=== PATIENT | female | born 1945 | race Caucasian/White ===

== ENCOUNTER → 2016-12-30 | Outpatient (CLI) | payer MEDICARE ==
[2016-12-30 14:12] LABS: Basophils # (A) 0.1 k/uL (0-0.2); Basophils % (A) 1 %; CH 31.5; CHCM 33.6; Eosinophils % (A) 1 %; HCT 43.6 % (34.0-46.0); HDW 2.66; HGB 14.3 gm/dL (11.4-16.0); Luc # (Auto) 0.15; Luc % (Auto) 3; Lymphocytes # (A) 1.1 k/uL (1.0-4.8); Lymphocytes % (A) 18 %; MCH 30.8 pg (25.0-35.0); MCHC 32.8 g/dL (31.0-37.0); MCV 94.1 fL (80.0-100.0); Mean Platelet Volume 7.6; Monocytes # (A) 0.3 k/uL (0-1.0); Monocytes % (A) 5 %; Neutrophils # (A) 4.2 k/uL (1.3-7.7); Neutrophils % (A) 73 %; RBC 4.63 m/uL (3.80-5.40); RDW 13.9 % (11.5-15.5); WBC 5.7 k/uL (3.8-10.6); WBC (Perox) 5.68
[2016-12-30 14:22] LABS: INR 1.1 (<1.1); Partial Thromboplastin Time 22.8 sec (22.0-30.0); Prothrombin Time 10.7 sec (9.0-12.0)
[2016-12-30 14:26] LABS: ALT 31 U/L (9-52); AST 19 U/L (14-36); Alkaline Phosphatase 73 U/L (38-126); Anion Gap 12 mmol/L; Blood Urea Nitrogen 18 mg/dL (7-17); Calcium 10.5 mg/dL (8.4-10.2); Carbon Dioxide 29 mmol/L (22-30); Chloride 100 mmol/L (98-107); Glucose 104 mg/dL (74-99); Non-African American GFR(MDRD) >60 (>60 ml/min/1.73 sqM); Potassium 3.5 mmol/L (3.5-5.1); Sodium 141 mmol/L (137-145); Total Bilirubin 0.5 mg/dL (0.2-1.3); Total Protein 7.4 g/dL (6.3-8.2)
== END ==
LOC: LABWHC1 13:14
PROVIDERS: ATTEND Orthopaedic Surgery
DX: Z01.810 Encounter for preprocedural cardiovascular examination (principal); Z01.812 Encounter for preprocedural laboratory examination
CPT/HCPCS: 36415; 80053; 85025; 85610; 85730; 87070

== ENCOUNTER → 2017-01-03 | Outpatient (CLI) | payer MEDICARE ==
[2017-01-03 14:06] LABS: Appearance,Urine Clear (Clear); Bacteria,Urine Rare /hpf; Bilirubin,Urine Negative (Negative); Glucose,Urine (UA) Negative (Negative); Ketones,Urine Negative (Negative); Leukocyte Esterase,Urine Large (Negative); Mucus,Urine Rare /hpf; Nitrite,Urine Negative (Negative); PH, Urine 5.5 (5.0-8.0); Particle Count 3818; Protein,Urine Negative (Negative); RBC,Urine 2 /hpf (0-5); Specific Gravity,Urine 1.015 (1.001-1.035); Squamous Epithelial Cell,Urine 1 /hpf (0-4); UA Billing (MACRO vs. MICRO) MICRO; Urobilinogen,Urine <2.0 mg/dL (<2.0); WBC,Urine 9 /hpf (0-5)
== END | disposition home or self-care (01) ==
LOC: LABWHC1 13:15
PROVIDERS: ATTEND Orthopaedic Surgery
DX: Z01.812 Encounter for preprocedural laboratory examination (principal)
CPT/HCPCS: 81001; 86850; 86900; 86901

== ENCOUNTER 2017-01-10 11:24 | Inpatient (IN) | payer MEDICARE ==
[2017-01-03 12:03] VITALS: BMI 31.3
[~2017-01-10 11:24] MED LIST: ACETAMINOPHEN TAB 500 MG TAB PO ONE; DEXAMETHASONE SOD PHOSPHATE 10 MG/ML 1 ML VIAL IV ONE; HYDROmorphone 1 MG/ML 1 ML SYRINGE IVP PRN; LACTATED RINGERS 1,000 ML IV SCH; MELOXICAM 7.5 MG TAB PO ONE; MIDAZOLAM 2 MG/2 ML VIAL IV PRN; ONDANSETRON 4 MG/2 ML VIAL IVP ONE; ROPIVACAINE 246.25 MG, EPINEPHrine 0.5 MG, KETOROLAC 30 MG, cloNIDine HCL/PF 80 MCG, WA... MISCELLANE ONE; TRANEXAMIC ACID 1,000 MG in SODIUM CHLORIDE 0.9% 100 ML IVPB ONE; ceFAZolin 2 GM in SODIUM CHLORIDE 0.9% 100 ML IVPB ONE
[2017-01-10] MEDS ORDERED: LIDOCAINE 1% 20 ML VIAL (10MG/ML) FOR IV START INTRADERMA ONE (12:36)
[2017-01-10] MEDS ORDERED: TRANEXAMIC ACID 1,000 MG/10 ML VIAL ONE (15:25)
[2017-01-10] MEDS ORDERED: SODIUM CHLORIDE 0.9% 100 ML BAG ONE (15:25)
[2017-01-10] MEDS ORDERED: HEPARIN SODIUM,PORCINE 10,000 UNIT/ML 1 ML VIAL ONE (15:25)
[2017-01-10] MEDS ORDERED: PROPOFOL 10 MG/ML 20 ML VIAL IV ONE (15:25)
[2017-01-10] MEDS ORDERED: fentaNYL (PF) 50 MCG/ML 2 ML AMP ONE (15:25)
[2017-01-10] MEDS ORDERED: ePHEDrine 50 MG/ML 1 ML AMP ONE (15:25)
[2017-01-10] MEDS ORDERED: SODIUM CHLORIDE 0.9% IRRIG 1,000 ML BTL IRRIGATION ONE (15:25)
[2017-01-10] MEDS ORDERED: MIDAZOLAM 2 MG/2 ML VIAL ONE (15:25)
[2017-01-10] MEDS ORDERED: ceFAZolin 3,000 MG in SODIUM CHLORIDE 0.9% IRRIGATIO 3,000 ML IRRIGATION ONE (16:25)
[2017-01-10] MEDS ORDERED: LACTATED RINGERS 1,000 ML IV ONE (16:40)
--- NOTE | 2017-01-10 17:16 | P.OP ---
Date of Procedure: 01/10/17 Preoperative Diagnosis: Severe osteoarthritis left hip Postoperative Diagnosis: Severe osteoarthritis left hip Procedure(s) Performed: Left total hip arthroplasty with a direct anterior approach Implants: Francisco and nephew Polarstem size 3 standard Francisco & Nephew R3, 3 hole acetabular shell, 54 mm Francisco & Nephew reflection 6.5 mm cancellus screw, 20 mm 2 Francisco & Nephew R3, XLPE 20 acetabular liner Francisco & Nephew Oxinium femoral head 36 m, +0 All components were press-fit. The articulation is ceramic on polyethylene. Anesthesia: spinal Surgeon: Kodak Spain Millwright Instructor #1: Magaly Hull Estimated Blood Loss (ml): 100 Pathology: other (Femoral head) Condition: stable Disposition: PACU Indications for Procedure: After failure of conservative treatment we discussed the surgical and nonsurgical treatment options at length. Patient wishes to proceed with a total hip arthroplasty with a direct anterior approach. Complications specific to this procedure were discussed at length, including but not limited to infection, leg length discrepancy, dislocation, and nerve injury. Patient is aware of all these complications and informed consent was obtained Operative Findings: The operative findings are consistent with severe osteoarthritis of the left hip Description of Procedure: Patient was seen and evaluated in the preoperative area, consent was reviewed, and the surgical site was marked with a skin marker. Patient was then brought to the operating room and given prophylactic antibiotics intravenously. 1 g of Tranexamic acid was also given. A spinal anesthetic was administered by the anesthesia department. A Freeman catheter was then placed by the nursing staff. The patient was then placed on the Snyder table with the bony prominences well- padded. The hip area was then prepped and draped in usual sterile fashion. A universal timeout was then performed, which confirmed the patient's name, surgical site, ALLERGIES, and procedure being performed. Next the incision site was located at 1 cm distal and 1 cm lateral to the anterior superior iliac spine. The skin and subcutaneous tissues were sharply incised. Incision was carefully dissected down to the fascia overlying the tensor fascia lisandra muscle. This fascia was then incised in line with the incision. Next, using blunt finger dissection, the tensor fascia lisandra muscle was dissected off its investing fascia. The muscle was then carefully retracted laterally with a cobra retractor over the lateral neck of the femur. Next, the circumflex vessels were identified and cauterized using the AquaMantis device. The anterior hip capsule was then exposed. The capsule was then opened and an inverted T fashion. Retention sutures were placed in the inferior arms of the capsule. Cobra retractors were then placed intracapsularly. The proximal femur was then visualized. The femoral neck was then osteotomized appropriate level above the lesser trochanter. Small amount of traction was placed with the Snyder table. A small wedge of bone was then removed from the remaining femoral head. Next, using a corkscrew femoral head was easily removed from the acetabulum. On gross visual inspection, the femoral head had complete loss of articular cartilage in multiple periarticular osteophytes. Attention was then turned to the acetabulum. the acetabulum was exposed and any remaining labrum was excised. Sequential reaming of the acetabulum was performed using fluoroscopic guidance. When the appropriate size was reached, a trial was then placed. The position and fit of the trial was checked with fluoroscopy. The trial was then removed. Then, using fluoroscopic guidance, the final implant was impacted at 20 of anteversion and 40 of abduction, and fully seated in the acetabulum. 2 screws were then placed in the acetabulum. Again fluoroscopy was used to check position of the screws. Next, the liner was then impacted, with a 20 elevated liner located in the anterior superior quadrant. Component locking was confirmed. Attention was then directed to the femur. With the aid of the Snyder table, the femur was externally rotated to approximately 130, extended, and abducted under the opposite leg. A side hook was then placed under the proximal femur, and the side hook elevator was used to elevate the proximal femur. Retractors were then placed. A capsular release was performed, as well as a release of the conjoined tendon, which afforded excellent visualization of the proximal femur. Next, a box osteotome was used to lateralize the proximal femur. A hand mexican food maker was then used to locate the femoral canal. Sequential broaching was then performed with appropriate size which afforded excellent fixation in the proximal femur. A trial was then placed with appropriate head and neck, and the hip was gently reduced with the aid of the Snyder table. Fluoroscopy was then used to check position of the components, as well as to ensure equal leg lengths. The hip was then gently dislocated and the trials were then removed. Final implants were then impacted and the hip was again reduced. Final fluoroscopic x-rays confirmed that the components were in anatomic position, as well as equal leg lengths. The hip was also taken through range of motion, and found to be stable. The hip was then copiously irrigated with antibiotic solution with pulsatile lavage. The hip was then irrigated with Irrisept solution. The soft tissues were then injected with a ropivacaine solution, which consisted of 246.25 mg of ropivacaine, 0.5 mg of epinephrine, 30 mg of Toradol, 80 g of clonidine, and 48.45 mL of sterile water, for a total of 100 mL of fluid injected. A second dose of 1 g of Tranexamic acid was also given. the fascia was then closed with 2-0 strata fix suture. The subcutaneous tissue was closed with 3-0 Vicryl. The subcuticular tissue was closed with 3-0 strata fix suture. The skin was then closed with Dermabond tape. The patient was then transferred to the recovery room in stable condition. The assistant department manager ELIZABETH Segura was required due to the complexity of surgery , and the need for skilled data entry assistant for positioning, draping, exposure , retraction, and closure of the wound.
[2017-01-10] MEDS ORDERED: HYDROmorphone 1 MG/ML 1 ML SYRINGE IVP PRN ×3 (17:28)
[2017-01-10] MEDS ORDERED: HYDROcodone/APAP 7.5-325MG 1 EACH TAB PO PRN (17:28)
[2017-01-10] MEDS ORDERED: DIAZEPAM 5 MG TAB PO PRN (17:28)
[2017-01-10] MEDS ORDERED: ONDANSETRON 4 MG/2 ML VIAL IVP PRN (17:28)
[2017-01-10] MEDS ORDERED: MAGNESIUM HYDROXIDE 2,400 MG/10 ML CUP PO PRN (17:28)
[2017-01-10] MEDS ORDERED: NALOXONE 0.4 MG/ML 1 ML VIAL IV PRN (17:28)
--- NOTE | 2017-01-10 17:55 | XR ---
EXAMINATION TYPE: XR Hip Limited LT DATE OF EXAM: 01/10/2017 5:47 PM CLINICAL HISTORY: Postoperative evaluation TECHNIQUE: Single portable view of the left hip was submitted. FINDINGS: Noted are changes of total hip arthroplasty with femoral and acetabular components appearin g well seated. Alignment is anatomic. Postsurgical soft tissue changes are evident. IMPRESSION: Satisfactory postoperative alignment
[2017-01-10] MEDS: HYDROcodone/APAP 7.5-325MG 1 EACH TAB PO PRN (19:51)
[2017-01-10] MEDS: SODIUM CHLORIDE 0.9% 1,000 ML IV SCH (19:51)
[2017-01-10] MEDS: SENNOSIDES-DOCUSATE SODIUM 1 EACH TAB PO SCH (19:52)
[2017-01-10] MEDS: ASPIRIN 325 MG TAB PO SCH (19:53)
[2017-01-10] MEDS: ATORVASTATIN 10 MG TAB PO SCH (21:46)
[2017-01-10] MEDS: LISINOPRIL-HCTZ 20-25 MG 1 EACH TAB PO SCH (21:46)
[2017-01-10] MEDS: LEVOTHYROXINE 125 MCG TAB PO SCH (21:46)
[2017-01-11] MEDS: ceFAZolin 2 GM in SODIUM CHLORIDE 0.9% 100 ML IVPB SCH ×2 (01:06→09:22)
[2017-01-11] MEDS: DIAZEPAM 5 MG TAB PO PRN ×2 (01:07→22:55)
[2017-01-11] MEDS: HYDROcodone/APAP 7.5-325MG 1 EACH TAB PO PRN ×3 (05:49→22:55)
[2017-01-11 07:46] LABS: Basophils % (A) 0 %; CHCM 34.1; Eosinophils % (A) 0 %; HCT 33.3 % (34.0-46.0); Luc # (Auto) 0.09; Luc % (Auto) 1; Lymphocytes # (A) 0.7 k/uL (1.0-4.8); Lymphocytes % (A) 9 %; MCH 31.2 pg (25.0-35.0); MCHC 33.1 g/dL (31.0-37.0); MCV 94.4 fL (80.0-100.0); Mean Platelet Volume 7.7; Monocytes # (A) 0.3 k/uL (0-1.0); Monocytes % (A) 4 %; Neutrophils % (A) 86 %; RBC 3.53 m/uL (3.80-5.40); RDW 13.8 % (11.5-15.5); WBC 8.1 k/uL (3.8-10.6); WBC (Perox) 9.09
--- NOTE | 2017-01-11 07:48 | FL ---
EXAMINATION TYPE: FL guidance operating room, XR Hip Limited LT DATE OF EXAM: 01/10/2017 5:13 PM CLINICAL HISTORY: Left hip replacement. TECHNIQUE: Fluoroscopy. Intraoperative limited views left hip. COMPARISON: None. FINDINGS: Fluoroscopic guidance was provided during hip replacement procedure performed by Dr. Susan conklin. A total of 49 seconds of fluoroscopic time was utilized during the procedure and 2 spot images are acquired. Intraoperative images acquired show metallic hardware from left hip arthroplasty is satisfactory in p osition on single frontal projection. IMPRESSION: As Above.
--- NOTE | 2017-01-11 08:22 | P.PN ---
Subjective Principal diagnosis: Status post left total hip arthroplasty This is a pleasant 71-year-old female who is status post left total hip arthroplasty. The patient was seen and evaluated at bedside with Dr. Kodak Spain. Her pain is under fair control. She's not yet no physical therapy. She has no new complaints at this time. Objective - Vital Signs Vital signs: Vital Signs Temp 97.3 F L 01/11/17 05:59 Pulse 58 L 01/11/17 05:59 Resp 16 01/11/17 05:59 BP 106/48 01/11/17 05:59 Pulse Ox 97 01/11/17 05:59 Intake & Output 01/10/17 01/11/17 01/11/17 18:59 06:59 18:59 Intake Total 1401 730 Output Total 200 400 Balance 1201 730 -400 Intake: IV 1401 730 Sodium Chloride 0.9% 1, 630 000 ml @ 70 mls/hr IV . [id number] MARIA VICTORIA Rx#:[id number] ceFAZolin 2 gm In Sodium 100 Chloride 0.9% 100 ml @ 100 mls/hr IVPB Q8HR MARIA VICTORIA Rx#:[id number] Output: Urine 100 400 Uretheral (Freeman) 400 Estimated Blood Loss 100 Other: Voiding Method Indwelling Catheter - Exam The patient does not appear in acute distress. Alert and orientated 3. Dressing is clean dry and intact. Calf is soft and nontender. Good foot and ankle motion without difficulty. Sensation and circulatory status is intact. - Labs CBC & Chem 7: 01/11/17 07:07 Labs: Abnormal Lab Results - Last 24 Hours (Table) 01/11/17 Range/Units 07:07 RBC 3.53 L (3.80-5.40) m/uL Hgb 11.0 L D (11.4-16.0) gm/dL Hct 33.3 L (34.0-46.0) % Lymphocytes # 0.7 L (1.0-4.8) k/uL Assessment and Plan (1) Primary osteoarthritis of left hip Status: Acute (2) Status post left hip replacement Status: Acute Plan: Continue with routine postoperative care. Physical therapy today. Pain control and anticoagulation. Anticipate discharge to home with home care likely tomorrow. She may be discharged home later this afternoon if she is doing well with physical therapy and wishes to
[2017-01-11] MEDS: SODIUM CHLORIDE 0.9% 1,000 ML IV SCH (09:13)
[2017-01-11] MEDS: ASPIRIN 325 MG TAB PO SCH ×2 (09:23→20:53)
[2017-01-11] MEDS: MELOXICAM 7.5 MG TAB PO SCH (09:23)
--- NOTE | 2017-01-11 15:54 | P.CONS ---
History of Present Illness - Reason for Consult Consult date: 01/11/17 Medical management Requesting physician: Kodak Spain - Chief Complaint Severe left hip osteoarthritis - History of Present Illness This is a 71-year-old female with past medical history noted below significant for severe osteoarthritis of the left hip that failed outpatient management. Patient was admitted to the hospital for elective right total hip arthroplasty. She is postoperative day #1. Patient is doing well today. Pain is well controlled. She is up sitting in the chair. She does not have any specific concerns or complaints. I was asked to see her for medical management. Review of Systems Review of system: 14 points review of systems were obtained and were negative except to what were mentioned in the HPI. Past Medical History Past Medical History: Hyperlipidemia, Hypertension, Thyroid Disorder Additional Past Medical History / Comment(s): VERTIGO History of Any Multi-Drug Resistant Organisms: None Reported Past Surgical History: Bladder Surgery, Cholecystectomy, Hernia Repair, Hysterectomy, Orthopedic Surgery, Tonsillectomy, Tubal Ligation Additional Past Surgical History / Comment(s): THYROIDECTOMY. RT ROTATOR CUFF & SHOULDER SX.07-29-16 TOTAL RT HIP Past Anesthesia/Blood Transfusion Reactions: Postoperative Nausea & Vomiting ( PONV) Additional Past Anesthesia/Blood Transfusion Reaction / Comm: NO HX BLOOD TRANSFUSION Past Psychological History: No Psychological Hx Reported Smoking Status: Former smoker Past Alcohol Use History: Rare Additional Past Alcohol Use History / Comment(s): QUIT ABOUT 40 YRS AGO (1973); SMOKED OVER 1 YR. Past Drug Use History: None Reported - Past Family History Daughter(s) Family Medical History: Cancer Additional Family Medical History / Comment(s): BREAST CANCER, AT AGE 37 YR. Father Family Medical History: Diabetes Mellitus Additional Family Medical History / Comment(s): AICD Mother Family Medical History: Hyperlipidemia, Hypertension Additional Family Medical History / Comment(s): GLAUCOMA,MAC DEGENERATION, BOWEL RESECTION/COLOSTOMY D/T OBSTRUCTION Medications and Allergies Home Medications Medication Instructions Recorded Confirmed Type [place] 1 tab PO DAILY 11/13/15 01/10/17 History Cholecalciferol [Vitamin D3] 1,000 unit PO DAILY 11/13/15 01/10/17 History Levothyroxine Sodium [Synthroid] 125 mcg PO HS 11/13/15 01/10/17 History Lisinopril/Hydrochlorothiazide 1 tab PO HS 11/13/15 01/10/17 History [Lisinopril-Hctz 20-25 mg Tab] Lovastatin 40 mg PO HS 11/13/15 01/10/17 History Milk Thistle 150 mg PO DAILY 11/13/15 01/10/17 History Ibuprofen/Diphenhydramine HCl 1 cap PO HS 01/03/17 01/10/17 History [Advil Pm Liqui-Gels] Aspirin EC [Ecotrin Low Dose] 81 mg PO HS 01/10/17 01/10/17 History HYDROcodone/APAP 7.5-325MG [[place] 1 - 2 tab PO Q4-6H PRN 01/10/17 01/10/17 History 7.5-325] Allergies Allergy/AdvReac Type Severity Reaction Status Date / Time morphine AdvReac Nausea & Verified 01/10/17 12:03 Vomiting tramadol AdvReac Nausea & Verified 01/10/17 12:03 Vomiting Physical Exam Vitals: Vital Signs Temp Pulse Resp BP Pulse Ox 01/11/17 15:21 97.9 F 62 17 97/61 99 01/11/17 05:59 97.3 F L 58 L 16 106/48 97 01/11/17 00:10 98.3 F 67 16 101/59 97 01/10/17 19:45 68 130/73 01/10/17 19:30 68 128/59 01/10/17 19:15 68 135/64 01/10/17 19:00 81 128/60 01/10/17 18:45 62 126/57 01/10/17 18:33 98.1 F 66 114/56 99 01/10/17 18:00 69 18 122/57 98 01/10/17 17:45 67 16 108/53 99 01/10/17 17:28 97.8 F 78 14 104/51 95 Intake and Output 01/11/17 01/11/17 01/11/17 06:59 14:59 22:59 Intake Total 730 880 Output Total 700 Balance 730 180 Intake: IV 730 Sodium Chloride 0.9% 1, 630 000 ml @ 70 mls/hr IV . [id number] MARIA VICTORIA Rx#:[id number] ceFAZolin 2 gm In Sodium 100 Chloride 0.9% 100 ml @ 100 mls/hr IVPB Q8HR MARIA VICTORIA Rx#:[id number] Oral 880 Output: Urine 700 Uretheral (Freeman) 400 Other: # Voids 1 General: The patient is awake and alert, in no distress Eye: there is normal conjunctiva bilaterally. Neck: The neck is supple, there is no JVD. Cardiovascular: Normal S1-S2, no S3-S4, no murmurs. Respiratory: Lungs clear to auscultation bilaterally Gastrointestinal: Abdomen is soft, nontender Musculoskeletal: There is no pedal edema. Neurological:. Speech is normal. Skin: Skin is warm and dry Results CBC & Chem 7: 01/11/17 07:07 Labs: Abnormal Lab Results - Last 24 Hours (Table) 01/11/17 Range/Units 07:07 RBC 3.53 L (3.80-5.40) m/uL Hgb 11.0 L D (11.4-16.0) gm/dL Hct 33.3 L (34.0-46.0) % Lymphocytes # 0.7 L (1.0-4.8) k/uL Assessment and Plan Plan: 1. Severe osteoarthritis of the left hip: Postoperative day #1 status post right total hip arthroplasty. Pain is well controlled. Continue postoperative care 2. DVT prophylaxis: Currently on full dose aspirin twice daily per orthopedic protocol. 3. Essential hypertension: Home medication on hold as blood pressure is borderline. We will continue to monitor. 4. Hypothyroidism: On levothyroxin 5. Mixed hyperlipidemia 6. Physical debility: Continue to work with PT/OT Today, I reviewed her medication list and lab work results. Continue current regimen. Thank you very much for the consultation. I will continue to follow up on the patient closely.
[2017-01-11] MEDS: hydrOXYzine PAMOATE 25 MG CAP PO PRN (17:37)
[2017-01-11] MEDS: ATORVASTATIN 10 MG TAB PO SCH (20:53)
[2017-01-11] MEDS: LISINOPRIL-HCTZ 20-25 MG 1 EACH TAB PO SCH (20:53)
[2017-01-11] MEDS: SENNOSIDES-DOCUSATE SODIUM 1 EACH TAB PO SCH (20:54)
[2017-01-11] MEDS: LEVOTHYROXINE 125 MCG TAB PO SCH (20:54)
[2017-01-12 00:49] VITALS: PULSE 55; RESP 16
[2017-01-12] MEDS: SODIUM CHLORIDE 0.9% 1,000 ML IV SCH ×2 (04:28→13:05)
[2017-01-12] MEDS: HYDROcodone/APAP 7.5-325MG 1 EACH TAB PO PRN ×2 (05:26→10:46)
--- NOTE | 2017-01-12 09:04 | P.DS ---
Providers Date of admission: 01/10/17 11:24 Expected date of discharge: 01/12/17 Attending physician: Kodak Spain Consults: 01/10/17 17:28 Consult Physician Routine Consulting Provider: Linda Watkins Consult Reason/Comments: medical management Do you want consulting provider notified?: Yes 01/10/17 18:56 Consult Physician Routine Consulting Provider: Micheline Kelly Consult Reason/Comments: medical management Do you want consulting provider notified?: Yes Primary care physician: Linda Watkins - Discharge Diagnosis(es) (1) Primary osteoarthritis of left hip Current Visit: Yes Status: Acute (2) Status post left hip replacement Current Visit: Yes Status: Acute Hospital Course: This is a 71-year-old female with known history of degenerative arthritis of the left hip. The patient presents for evaluation. After discussion and consideration patient elects to proceed with total hip arthroplasty. The patient is seen preoperatively by her primary care physician and cleared for surgery. Patient is admitted to [facility] on 01/10/2017 for total hip arthroplasty. The procedures performed without complication or sequelae. The patient is doing well postoperatively. Labs and vital signs are stable on day of discharge. On day of discharge patient's hip incision is healing well. There is minimal erythema. There is no drainage noted at this time. There is minimal soft tissue swelling to the hip and thigh. Patient has full foot and ankle motion without difficulty or pain. Neurovascular status to the left lower extremity is intact. Patient is discharged to home in good condition. Please see med rec for accurate list of home medications. Plan - Discharge Summary New Discharge Prescriptions: Aspirin 325 mg PO BID #60 tab HYDROcodone/APAP 7.5-325MG [[place] 7.5] 1 - 2 each PO Q6HR PRN #90 tab PRN Reason: Pain Sennosides-Docusate Sodium [Senokot-S] 2 tab PO DAILY #60 tablet Discharge Medication List [place] 1 tab PO DAILY 11/13/15 [History] Cholecalciferol [Vitamin D3] 1,000 unit PO DAILY 11/13/15 [History] Levothyroxine Sodium [Synthroid] 125 mcg PO HS 11/13/15 [History] Lisinopril/Hydrochlorothiazide [Lisinopril-Hctz 20-25 mg Tab] 1 tab PO HS 01/15/ 16 [History] Lovastatin 40 mg PO HS 11/13/15 [History] Milk Thistle 150 mg PO DAILY 11/13/15 [History] Sennosides-Docusate Sodium [Senokot-S] 1 tab PO BID #60 tablet 07/31/16 [Rx] Ibuprofen/Diphenhydramine HCl [Advil Pm Liqui-Gels] 1 cap PO HS 01/03/17 [ History] Aspirin EC [Ecotrin Low Dose] 81 mg PO HS 01/10/17 [History] HYDROcodone/APAP 7.5-325MG [[place] 7.5-325] 1 - 2 tab PO Q4-6H PRN 01/10/17 [ History] Aspirin 325 mg PO BID #60 tab 01/11/17 [Rx] HYDROcodone/APAP 7.5-325MG [[place] 7.5] 1 - 2 each PO Q6HR PRN #90 tab 01/11/17 [ Rx] Sennosides-Docusate Sodium [Senokot-S] 2 tab PO DAILY #60 tablet 01/11/17 [Rx] Follow up Appointment(s)/Referral(s): [facility], [NON-STAFF] - 1 Week Kodak Spain DO [Doctor of Osteopathic Medicine] - 2 Weeks Activity/Diet/Wound Care/Special Instructions: Weightbearing as tolerated with walker Daily dressing changes Keep incision clean and dry [facility] with questions or concerns [phone] Discharge Disposition: HOME WITH HOME HEALTH SERVICES
[2017-01-12] MEDS: MELOXICAM 7.5 MG TAB PO SCH (10:20)
[2017-01-12] MEDS: ASPIRIN 325 MG TAB PO SCH (10:20)
[2017-01-12] MEDS: hydrOXYzine PAMOATE 25 MG CAP PO PRN (10:46)
[2017-01-12 12:23] VITALS: BP 90/50; TEMP 98.1
--- NOTE | 2017-01-12 12:31 | P.PN ---
Subjective Patient is doing well today. She is looking forward to go home later on. Objective - Vital Signs Vital signs: Vital Signs Temp 98.1 F 01/12/17 07:00 Pulse 55 L 01/12/17 08:00 Resp 16 01/12/17 08:00 BP 90/50 01/12/17 07:00 Pulse Ox 95 01/12/17 07:00 Intake & Output 01/11/17 01/12/17 01/12/17 18:59 06:59 18:59 Intake Total 1360 550 Output Total 700 Balance 660 550 Intake: Oral 1360 550 Output: Urine 700 Uretheral (Freeman) 400 Other: Voiding Method Toilet # Voids 1 2 - Exam General: The patient is awake and alert, in no distress Eye: there is normal conjunctiva bilaterally. Neck: The neck is supple, there is no JVD. Cardiovascular: Normal S1-S2, no S3-S4, no murmurs. Respiratory: Lungs clear to auscultation bilaterally Gastrointestinal: Abdomen is soft, nontender Musculoskeletal: There is no pedal edema. Neurological:. Speech is normal. Skin: Skin is warm and dry - Labs CBC & Chem 7: 01/11/17 07:07 Assessment and Plan Plan: 1. Severe osteoarthritis of the left hip: Postoperative day #2 status post right total hip arthroplasty. Pain is well controlled. Continue postoperative care 2. DVT prophylaxis: Currently on full dose aspirin twice daily per orthopedic protocol. 3. Essential hypertension: Home medication on hold as blood pressure is borderline. We will continue to monitor. 4. Hypothyroidism: On levothyroxin 5. Mixed hyperlipidemia 6. Physical debility: Continue to work with PT/OT Today, I reviewed her medication list and lab work results. Patient is medically cleared for discharge. Hold blood pressure medication at home for the next couple of days and check blood pressure twice daily. Resume blood pressure medication when systolic blood pressure above 120.
== END 2017-01-12 14:15 | disposition home health service (06) | DRG 470 ==
LOC: 2ORMAIN 11:24 → 3SUR 17:41
PROVIDERS: ADMIT Orthopaedic Surgery; ATTEND Orthopaedic Surgery
PROC: 30233N0 Transfusion of Autologous Red Blood Cells into Peripheral Vein, Percutaneous Approach (ICD-10-PCS; principal; 2017-01-10 13:35)
PROC: 0SRB04Z Replacement of Left Hip Joint with Ceramic on Polyethylene Synthetic Substitute, Open Approach (ICD-10-PCS; principal; 2017-01-10 13:35)
DX: M16.12 Unilateral primary osteoarthritis, left hip (principal); Z96.641 Presence of right artificial hip joint; I10 Essential (primary) hypertension; E78.2 Mixed hyperlipidemia; R53.81 Other malaise; M25.752 Osteophyte, left hip; E89.0 Postprocedural hypothyroidism; Z83.3 Family history of diabetes mellitus; Z82.49 Family history of ischemic heart disease and other diseases of the circulatory system; Z80.3 Family history of malignant neoplasm of breast; Z87.891 Personal history of nicotine dependence; Z88.5 Allergy status to narcotic agent; Z85.850 Personal history of malignant neoplasm of thyroid; Z79.891 Long term (current) use of opiate analgesic; Z79.899 Other long term (current) drug therapy; Z79.82 Long term (current) use of aspirin; Z79.1 Long term (current) use of non-steroidal anti-inflammatories (NSAID); Z90.49 Acquired absence of other specified parts of digestive tract; Z90.710 Acquired absence of both cervix and uterus; Z98.51 Tubal ligation status
CPT/HCPCS: 73501; 85025; 86850; 86891; 86900; 86901; 88300

== ENCOUNTER → 2017-05-08 | Outpatient (CLI) | payer MEDICARE ==
--- NOTE | 2017-05-10 07:03 | MM ---
Reason for exam: screening (asymptomatic). Last mammogram was performed 1 year and 1 month ago. History: Patient is postmenopausal and has history of other cancer at age 55. Family history of breast cancer in maternal aunt at age 70, breast cancer in daughter at age 31, and breast cancer in aunt. Benign stereotactic core biopsy of the right breast, November 14, 2002. Benign core biopsy of the right breast. Physical Findings: A clinical breast exam by your physician is recommended on an annual basis and results should be correlated with mammographic findings. MG 3D Screening Mammo W/Cad Bilateral CC and MLO view(s) were taken. Prior study comparison: April 21, 2016, bilateral MG 3d screening mammo w/cad. April 07, 2015, bilateral MG screening mammo w CAD. March 19, 2014, bilateral MG screening mammo w CAD. The breast tissue is almost entirely fat. Previous mammotome biopsy in the right breast. Redemonstrated diffuse bilateral round and punctate calcifications. Minimally increased lateral left breast. No significant changes when compared with prior studies. ASSESSMENT: Benign, BI-RAD 2 RECOMMENDATION: Routine screening mammogram of both breasts in 1 year.
== END | disposition home or self-care (01) ==
LOC: RADMAMWWP 13:03
PROVIDERS: ATTEND Obstetrics & Gynecology
DX: Z12.31 Encounter for screening mammogram for malignant neoplasm of breast (principal)
CPT/HCPCS: 77063; G0202

== ENCOUNTER → 2017-10-17 | Outpatient (CLI) | payer MEDICARE ==
--- NOTE | 2017-10-17 17:22 | US ---
EXAMINATION TYPE: US thyroid st tissue head/neck DATE OF EXAM: 10/17/2017 COMPARISON: US thyroid May 17, 2016 CLINICAL HISTORY: Z85.850 per hx thyroid CA. Thyroidectomy, follow up, patient has no issues. GLAND SIZE: Right Lobe: surgically absent Left Lobe: surgically absent Isthmus Thickness: surgically absent NODULES RIGHT: surgically absent LEFT: surgically absent ISTHMUS: surgically absent Bilateral neck scanned, no evidence of lymphadenopathy. Scanning of bilateral thyroid bed shows no suspicious recurrent tissue. IMPRESSION: Overall stable findings from prior study, no suspicious recurrent tissue identified.
== END | disposition home or self-care (01) ==
LOC: RADUSWWP 16:43
PROVIDERS: ATTEND Family Medicine
DX: Z08 Encounter for follow-up examination after completed treatment for malignant neoplasm (principal); Z85.850 Personal history of malignant neoplasm of thyroid
CPT/HCPCS: 76536

== ENCOUNTER → 2018-03-16 | Outpatient (CLI) | payer MEDICARE ==
--- NOTE | 2018-03-16 15:23 | US ---
EXAMINATION TYPE: US pelvic complete DATE OF EXAM: 03/16/2018 COMPARISON: NONE CLINICAL HISTORY: N94.9cyst R93.8 abnormal MRI four months ago per patient at [facility] f or 2.3cm cyst right ovary; hysterectomy; patient denies pain TECHNIQUE: Transabdominal (TA) as patient deferred TV US. Date of LMP: years ago EXAM MEASUREMENTS: Uterus: surgically removed Endometrial Stripe: surgically removed Right Ovary: 4.4 x 3.7 x 2.2 cm Left Ovary: 3.3 x 2.4 x 1.4 cm 1. Uterus: surgically absent 2. Endometrium: surgically absent 3. Right Ovary: enlarged with exophytic appearing simple cyst = 2.2 x 2.0 x 1.8cm and located right lateral; small hyperechoic calcification noted in ovarian periphery 4. Left Ovary: wnl 5. Bilateral Adnexa: wnl 6. Posterior cul-de-sac: wnl IMPRESSION: Simple appearing right ovarian cyst measuring 2.2 cm. Consensus guidelines recommend brien al surveillance in a postmenopausal female. Adjacent calcification may represent arterial or gonadal vein calcification.
== END | disposition home or self-care (01) ==
LOC: RADUSWWP 13:48
PROVIDERS: ATTEND Obstetrics & Gynecology
DX: N94.9 Unspecified condition associated with female genital organs and menstrual cycle (principal); R93.8 Abnormal findings on diagnostic imaging of other specified body structures
CPT/HCPCS: 76856

== ENCOUNTER → 2018-05-22 | Outpatient (CLI) | payer MEDICARE ==
--- NOTE | 2018-05-23 13:39 | MM ---
Reason for exam: screening (asymptomatic). Last mammogram was performed 1 year ago. History: Patient is postmenopausal and has history of other cancer at age 55. Family history of breast cancer in maternal aunt at age 70, breast cancer in daughter at age 31, and breast cancer in aunt. Benign stereotactic core biopsy of the right breast, November 14, 2002. Benign core biopsy of the right breast. Physical Findings: A clinical breast exam by your physician is recommended on an annual basis and results should be correlated with mammographic findings. MG 3D Screening Mammo W/Cad Bilateral CC and MLO view(s) were taken. Prior study comparison: May 08, 2017, bilateral MG 3d screening mammo w/cad. April 21, 2016, bilateral MG 3d screening mammo w/cad. There are scattered fibroglandular densities. Previous mammotome biopsy in the right breast. Scattered benign oil cyst calcifications. No significant changes when compared with prior studies. ASSESSMENT: Benign, BI-RAD 2 RECOMMENDATION: Routine screening mammogram of both breasts in 1 year.
== END | disposition home or self-care (01) ==
LOC: RADMAMWWP 13:50
PROVIDERS: ATTEND Obstetrics & Gynecology
DX: Z12.31 Encounter for screening mammogram for malignant neoplasm of breast (principal)
CPT/HCPCS: 77063; 77067

== ENCOUNTER → 2018-10-08 | Outpatient (CLI) | payer MEDICARE ==
--- NOTE | 2018-10-08 14:15 | US ---
EXAMINATION TYPE: US thyroid st tissue head/neck DATE OF EXAM: 10/08/2018 COMPARISON: 10/17/2017 CLINICAL HISTORY: Z85.850 History of thyroid cancer. GLAND SIZE: Right Lobe: Surgically absent Left Lobe: Surgically absent Isthmus Thickness: Surgically absent NODULES Bilateral thyroidectomy; no residual tissue seen Bilateral neck scanned, no evidence of lymphadenopathy. IMPRESSION: 1. No suspicious recurrent masses within the thyroid bed post thyroidectomy
== END | disposition home or self-care (01) ==
LOC: RADUSWWP 13:38
PROVIDERS: ATTEND Family Medicine
DX: Z08 Encounter for follow-up examination after completed treatment for malignant neoplasm (principal); Z98.890 Other specified postprocedural states; Z85.850 Personal history of malignant neoplasm of thyroid
CPT/HCPCS: 76536

== ENCOUNTER → 2019-05-22 | Outpatient (CLI) | payer MEDICARE ==
--- NOTE | 2019-05-22 14:29 | US ---
EXAMINATION TYPE: US pelvic complete DATE OF EXAM: 05/22/2019 COMPARISON: NONE CLINICAL HISTORY: N83.0 Follicular cyst of ovary. TECHNIQUE: Transabdominal (TA). Transabdominal sonographic images of the pelvis were acquired. Tra nsvaginal US deferred by patient. Patient denies pelvic pain. Date of LMP: hysterectomy age 64 EXAM MEASUREMENTS: Uterus: surgically removed Endometrial Stripe: surgically removed Right Ovary: 3.3 x 3.7 x 2.2 cm Left Ovary: 2.9 x 1.8 x 1.5 cm 1. Uterus: surgically absent 2. Endometrium: surgically absent 3. Right Ovary: prominent for post menopause with lobulated cyst (internal wall change/septations)= 2.3 x 2.3 x 2.1cm and as seen on prior US 4. Left Ovary: wnl 5. Bilateral Adnexa: wnl 6. Posterior cul-de-sac: wnl Persistent 2.3 cm slightly lobulated thin-walled cyst not significantly changed in size or appearance on ultrasound from prior study. IMPRESSION: Stable appearing 2.3 cm nonsimple cyst left ovary. No suspicious new nodularity or thicke susanne septa. Consider continued annual surveillance.
== END | disposition home or self-care (01) ==
LOC: RADUSWWP 13:33
PROVIDERS: ATTEND Obstetrics & Gynecology
DX: N83.292 Other ovarian cyst, left side (principal)
CPT/HCPCS: 76856

== ENCOUNTER → 2019-06-10 | Outpatient (CLI) | payer MEDICARE ==
--- NOTE | 2019-06-11 10:06 | MM ---
Reason for exam: screening (asymptomatic). Last mammogram was performed 1 year and 1 month ago. History: Patient is postmenopausal and has history of other cancer at age 55. Family history of breast cancer in maternal aunt at age 70, breast cancer in daughter at age 31, and breast cancer in aunt. Benign stereotactic core biopsy of the right breast, November 14, 2002. Benign core biopsy of the right breast. Physical Findings: A clinical breast exam by your physician is recommended on an annual basis and results should be correlated with mammographic findings. MG 3D Screening Mammo W/Cad Bilateral CC and MLO view(s) were taken. Prior study comparison: May 22, 2018, bilateral MG 3d screening mammo w/cad. May 08, 2017, bilateral MG 3d screening mammo w/cad. There are scattered fibroglandular densities. Benign appearing bilateral calcifications. No suspicious abnormality. No significant changes when compared with prior studies. ASSESSMENT: Benign, BI-RAD 2 RECOMMENDATION: Routine screening mammogram of both breasts in 1 year.
== END | disposition home or self-care (01) ==
LOC: RADMAMWWP 15:15
PROVIDERS: ATTEND Obstetrics & Gynecology
DX: Z12.31 Encounter for screening mammogram for malignant neoplasm of breast (principal)
CPT/HCPCS: 77063; 77067

== ENCOUNTER → 2021-02-15 | Outpatient (CLI) | payer MEDICARE ==
--- NOTE | 2021-02-16 08:22 | US ---
EXAMINATION TYPE: US thyroid st tissue head/neck DATE OF EXAM: 02/15/2021 COMPARISON: NONE CLINICAL HISTORY: R59.0 Localized enlarged lymph nodes. Pt states she feels a "tightness" within her neck/ pt has had thyroid removed/ Pt denies any palpable lumps within neck Benign-appearing node is present in the right lateral neck, short axis measures only 4 mm, left subma ndibular node measures 4 mm. Bilateral lateral neck, midline neck, and submandibular areas scanned/ No soft tissue abnormality could be appreciated within neck at this time IMPRESSION: Postop changes. No evident adenopathy.
== END | disposition home or self-care (01) ==
LOC: RADUSWWP 16:06
PROVIDERS: ATTEND Family Medicine
DX: R59.0 Localized enlarged lymph nodes (principal); Z98.890 Other specified postprocedural states
CPT/HCPCS: 76536

== ENCOUNTER → 2021-03-26 | Outpatient (CLI) | payer MEDICARE ==
--- NOTE | 2021-03-26 14:13 | BD ---
EXAMINATION TYPE: Axial Bone Density DATE OF EXAM: 03/26/2021 COMPARISON: 04/21/2016 CLINICAL HISTORY: Postmenopausal female Height: 66 IN Weight: 208 LBS RISK FACTORS HISTORY OF: Surgery to Hip(ELAN): 2017 Diet low in dairy products/other sources of calcium: YES Postmenopausal woman: AGE 55 PARTIAL HYST MEDICATIONS: Thyroid Medications: YES Which medication: Synthroid How Lon+ YEARS Additional Medications: VIT D, SYNTHROID, MULTI VIT, LOVASTATIN, BLOOD PRESSURE MEDS EXAM MEASUREMENTS: Bone mineral densitometry was performed using the [employer] System. Bone mineral density as measured about the Lumbar spine is: ----- L1-L4(G/cm2): 1.518 T Score Values are as follows: ----- L2: 1.7 ----- L3: 3.0 ----- L4: 4.0 ----- L1-L4: 2.8 Bone mineral density has: Increased 3.0% since study of: 04/21/2016 ELAN HIP REPLACEMENT 2016 Bone mineral density about the L Wrist (g/cm2): 0.637 T Score values are as follows: -----Dist. R+U: -0.1 -----Prox. R+U: -0.4 -----Radius total: -0.6 Bone mineral density BASELINE IMPRESSION: Normal (Values between +1 and -1 indicate normal bone mass). Consider repeating this study in 5 year s or sooner if there is some new clinical indication. NOTE: T-SCORE=SD OF THE YOUNG ADULT MEAN.
--- NOTE | 2021-03-31 14:19 | MM ---
Reason for exam: screening (asymptomatic). Last mammogram was performed 1 year and 10 months ago. History: Patient is postmenopausal and has history of other cancer at age 55. Family history of breast cancer in maternal aunt at age 70, breast cancer in daughter at age 31, and breast cancer in maternal aunt. Benign stereotactic core biopsy of the right breast, November 14, 2002. Benign core biopsy of the right breast. Physical Findings: A clinical breast exam by your physician is recommended on an annual basis and results should be correlated with mammographic findings. MG 3D Screening Mammo W/Cad Bilateral CC and MLO view(s) were taken. Prior study comparison: June 10, 2019, bilateral MG 3d screening mammo w/cad. May 22, 2018, bilateral MG 3d screening mammo w/cad. There are scattered fibroglandular densities. Finding: There are typically benign diffuse/scattered calcifications in both breasts. ASSESSMENT: Benign, BI-RAD 2 RECOMMENDATION: Routine screening mammogram of both breasts in 1 year.
== END | disposition home or self-care (01) ==
LOC: RADMAMWWP 12:28
PROVIDERS: ATTEND Family Medicine
DX: Z12.31 Encounter for screening mammogram for malignant neoplasm of breast (principal); Z78.0 Asymptomatic menopausal state; Z80.3 Family history of malignant neoplasm of breast
CPT/HCPCS: 77063; 77067; 77080

== ENCOUNTER → 2021-12-21 | Outpatient (CLI) | payer MEDICARE ==
--- NOTE | 2021-12-21 21:11 | CT ---
EXAMINATION TYPE: CT abdomen w con DATE OF EXAM: 12/21/2021 COMPARISON: CT dated 03/16/2012 HISTORY: abdomen distension, pain CT DLP: 1385.6 mGycm Automated exposure control for dose reduction was used. TECHNIQUE: Helical acquisition of images was performed from the lung bases through the top of iliac crest to include entire abdomen. CONTRAST: Performed with Oral Contrast and with IV Contrast, patient injected with 100 mL of Isovue 300. FINDINGS: Suspected hepatic steatosis. No definite hepatic focal lesion. Previous cholecystectomy. Few millimetric splenic hypodensities, appreciated in 2012 CT scan consistent with benign lesions. Un remarkable pancreas. Stable 11 mm right adrenal nodule likely representing an adrenal adenoma. Unrema rkable left adrenal. Left simple cortical renal cyst without suspicious features, otherwise unremarka ble kidneys. Unremarkable stomach, duodenum and visualized portion of the small bowel. Scattered uncomplicated col onic diverticulosis with fatty infiltration of the right hemicolon which could be related to chronic inflammatory changes. Normal appendix. Please note that the pelvis is not included in the scan. Scatt ered arterial atherosclerotic calcifications. Right ovarian/adnexal cyst measuring up to 2.8 cm, not appreciated in 2012 CT scan and not completely included in today's scan, for correlation with pelvic ultrasound results. Anterior abdominal wall me sh previous hernia repair. Unremarkable lung bases. Degenerative changes of the lower thoracic, lumba r spine and sacroiliac joints. Bony spinal canal stenosis is seen at L2-3 level. IMPRESSION: 2.8 cm right ovarian/adnexal cyst, not completely included in the scan, for correlation with pelvic u ltrasound results. No suspicious lesion or lymphadenopathy seen in the abdomen. Other incidental find ings as described above.
== END | disposition home or self-care (01) ==
LOC: RADCTMAIN 14:44
PROVIDERS: ATTEND Family Medicine
DX: R14.0 Abdominal distension (gaseous) (principal); R19.37 Generalized abdominal rigidity
CPT/HCPCS: 82565; 84520; 74160; 36415; Q9967

== ENCOUNTER → 2022-01-04 | Outpatient (CLI) | payer MEDICARE ==
--- NOTE | 2022-01-05 07:23 | US ---
EXAMINATION TYPE: US pelvic complete DATE OF EXAM: 01/04/2022 COMPARISON: CT. Ultrasound 05/22/2019 CLINICAL HISTORY: N83.201 UNSPECIFIED OVARIAN CYST, RIGHT SIDE. Hysterectomy; post menopausal; disten ded and firm abdomen TECHNIQUE: Transabdominal (TA). Transabdominal sonographic images of the pelvis were acquired. Date of LMP: mid fifties EXAM MEASUREMENTS: Uterus: surgically removed Endometrial Stripe: surgically removed Right Ovary: 4.4 x 3.2 x 2.9 cm Left Ovary: not seen 1. Right Ovary: enlarged ovary and multicystic with largest simple cyst = 1.5 x 1.5 x 1.4cm 2. Left Ovary: not seen 3. Bilateral Adnexa: wnl 4. Posterior cul-de-sac: wnl IMPRESSION: Enlargement of the right ovary with multiple cysts noted stable relative to the prior study. Continue d follow-up is advised.
== END | disposition home or self-care (01) ==
LOC: RADUSWWP 15:32
PROVIDERS: ATTEND Family Medicine
DX: N83.201 Unspecified ovarian cyst, right side (principal)
CPT/HCPCS: 76856

== ENCOUNTER → 2022-03-29 | Outpatient (CLI) | payer MEDICARE ==
--- NOTE | 2022-03-30 18:26 | MM ---
Reason for Exam: Screening (asymptomatic). Last screening mammogram was performed 12 month(s) ago. Indicated Problems: Lump or thickening of the right side. Patient History: Menarche at age 15. First Full-Term at age 24. Left ovary removed at age 63. Right ovary removed at age 63. Hysterectomy at age 63. Postmenopausal. Benign Core Biopsy on the right side. 11/14/2002, Benign Stereotactic Core Biopsy on the right side. Maternal aunt had breast cancer, age 70. Maternal aunt had breast cancer. Daughter had breast cancer, age 31. Risk Values: Tyra 5 year model risk: 5.0%. NCI Lifetime model risk: 11.3%. Prior Study Comparison: 05/22/2018 Bilateral Screening Mammogram, [facility]. 06/10/2019 Bilateral Screening Mammogram, [facility]. 03/26/2021 Bilateral Screening Mammogram, [facility]. Tissue Density: There are scattered fibroglandular densities. Findings: Analyzed By CAD. Multiple benign-appearing spherical calcifications are present. A core markers within the right breast. No suspicious spiculated or lobular masses, clusters of microcalcifications, architectural distortion, or other secondary signs of malignancy are radiographically apparent. Overall Assessment: Benign, BI-RAD 2 Management: Screening Mammogram of both breasts in 1 year. A clinical breast exam by your physician is recommended on an annual basis and results should be correlated with mammographic findings. Electronically signed and approved by: Gregg Cortez D.O. Radiologis
== END | disposition home or self-care (01) ==
LOC: RADMAMWWP 12:51
PROVIDERS: ATTEND Family Medicine
DX: Z12.31 Encounter for screening mammogram for malignant neoplasm of breast (principal)
CPT/HCPCS: 77063; 77067

== ENCOUNTER → 2023-02-16 | Outpatient (CLI) | payer MEDICARE ==
--- NOTE | 2023-02-16 12:52 | NM ---
EXAMINATION TYPE: NM gastric emptying static DATE OF EXAM: 02/16/2023 COMPARISON: NONE HISTORY: R 14.0 Following administration of 2 mCi Tc 99m Sulfur Colloid with 4oz eggs two toast and 8oz water, projec tion images of the abdomen were obtained 15 minutes post ingestion. Patient Emptying Values 1 Hour 30% % 2 Hours 68% % 3 Hours 91% % 4 Hours 100% % Gastroesophageal reflux: None IMPRESSION: Gastric emptying: Normal Gastroesophageal reflux: None Gastric emptying normal percentage values: 30 minutes: <70% of retention (> 30% emptying) suggests abnormally fast emptying. 60 minutes: <90% retention (>10% emptying) is normal; less than 30% retention (>70% emptying) suggest s abnormally rapid emptying. 90 minutes: <65% retention (> 35% emptying) is normal. 120 minutes: <60% retention (> 40% emptying) is normal. 180 minutes: <30% retention (> 70% emptying) is normal. Gastric emptying T-1/2: Solid: The normal range is 60-105 minutes Liquid only: Normal range is 10-45 minutes. Liquid only-children: At 60 minutes, normal range is 44-58 % . Liquid only-infants: At 60 minutes, normal range is 32-64 %. Additional references: Gastric Emptying Scintigraphy [email or web address]://[email or web address]
== END | disposition home or self-care (01) ==
LOC: RADNMMAIN 06:55
PROVIDERS: ATTEND Internal Medicine Gastroenterology
DX: R14.0 Abdominal distension (gaseous) (principal)
CPT/HCPCS: 78264; A9541

== ENCOUNTER → 2023-06-01 | Outpatient (CLI) | payer MEDICARE ==
--- NOTE | 2023-06-02 09:02 | MM ---
Reason for Exam: Screening (asymptomatic). Last mammogram was performed 1 year(s) and 3 month(s) ago. Patient History: Menarche at age 15. First Full-Term at age 24. Left ovary removed at age 63. Right ovary removed at age 63. Hysterectomy at age 63. Postmenopausal. Benign Core Biopsy on the right side. 11/14/2002, Benign Stereotactic Core Biopsy on the right side. Maternal aunt had breast cancer, age 70. Maternal aunt had breast cancer, age 75. Daughter had breast cancer, age 31. Risk Values: Tyra 5 year model risk: 5.0%. NCI Lifetime model risk: 10.0%. Prior Study Comparison: 06/10/2019 Bilateral Screening Mammogram, [facility]. 03/26/2021 Bilateral Screening Mammogram, [facility]. 03/29/2022 Bilateral MG 3D screening mammo w/cad, [facility]. Tissue Density: There are scattered fibroglandular densities. Findings: Analyzed By CAD. There is no suspicious group of microcalcifications or new suspicious mass in either breast. Multiple benign-appearing calcifications are demonstrated within both breasts. Biopsy markers within the right breast. Overall Assessment: Benign, BI-RAD 2 Management: Screening Mammogram of both breasts in 1 year. A clinical breast exam by your physician is recommended on an annual basis and results should be correlated with mammographic findings. Note on Tyra scores and lifetime risk: 1. A Tyra score greater than 3% is considered moderate risk. If this is the case, consider specialist referral to assess eligibility for a risk reducing agent. If overall lifetime risk for the development of breast cancer is 20% or higher, the patient may qualify for future screening with alternating mammogram and breast MRI. Electronically signed and approved by: Derek Penny D.O.
== END | disposition home or self-care (01) ==
LOC: RADMAMWWP 15:01
PROVIDERS: ATTEND Family Medicine
DX: Z12.31 Encounter for screening mammogram for malignant neoplasm of breast (principal); Z78.0 Asymptomatic menopausal state; Z80.3 Family history of malignant neoplasm of breast
CPT/HCPCS: 77063; 77067

== ENCOUNTER → 2023-12-21 | Outpatient (CLI) | payer MEDICARE ==
--- NOTE | 2023-12-22 08:02 | CT ---
EXAMINATION TYPE: CT lumbar spine wo con CT DLP: 988 mGycm, Automated exposure control for dose reduction was used. DATE OF EXAM: 12/21/2023 12:53 PM COMPARISON: 12/21/2021.. CLINICAL INDICATION:Female, 78 years old with history of M54.16 lumbar pain; PHH, back pain TECHNIQUE: Multiple axial images were obtained from the midportion of T11 through the sacroiliac cherie nts. Soft tissue and bone windows in coronal and sagittal planes were obtained and reviewed. Contrast used: mL of , (None, if empty). Oral contrast used: (None, if empty). FINDINGS: Alignment: There are 5 lumbar type vertebral bodies within normal alignment. Bone: Multilevel degeneration changes throughout the spine with disc space narrowing, fractures, oste ophytes, facet joint arthropathy present. Pseudoarthrosis of the spinous processes. Degeneration hunter ges of the sacroiliac joints with large osteophytes noted right greater than left. Discs: T12-L1: No spinal canal or neural foraminal stenosis is identified. L1-L2: No spinal canal or neural foraminal stenosis is identified. L2-L3: Large osteophyte with severe spinal canal stenosis with facet joint arthropathy with moderate to severe bilateral neural foraminal stenosis. L3-L4: Facet joint arthropathy and disc bulging result with mild spinal canal stenosis and mild bilat eral neural foraminal stenosis. L4-L5: Facet joint arthropathy and disc bulging result with moderate to severe spinal canal stenosis and mild to moderate bilateral neural foraminal stenosis. L5-S1: No spinal canal or neural foraminal stenosis is identified. Other: Postsurgical hernia anchors anterior abdominal wall. No remaining hernia identified. Scattered colonic diverticula. Left renal cyst. Atherosclerosis of the arterial vascular. Bilateral hip arthro plasties partially visualized. IMPRESSION: Overall similar appearance to the spine from 12/21/2021. 1. No evidence for spinal fracture. 2. Spinal foraminal stenosis worse at L2-L3 with large osteophyte with severe spinal canal stenosis. Additionally moderate to severe L4-L5 spinal canal stenosis secondary to osteophyte. 3. Moderate to severe multilevel degeneration changes. 4. Findings suggestive of Baastrup's disease.
== END | disposition home or self-care (01) ==
LOC: RADCTMAIN 12:09
PROVIDERS: ATTEND Orthopaedic Surgery
DX: M47.26 Other spondylosis with radiculopathy, lumbar region (principal); M99.73 Connective tissue and disc stenosis of intervertebral foramina of lumbar region; M43.16 Spondylolisthesis, lumbar region; M48.061 Spinal stenosis, lumbar region without neurogenic claudication; M25.78 Osteophyte, vertebrae
CPT/HCPCS: 72131

== ENCOUNTER → 2024-04-10 | Outpatient (CLI) | payer MEDICARE | END | disposition home or self-care (01) | LOC: LABPAT 16:20 | PROVIDERS: ATTEND Orthopaedic Surgery | DX: Z01.812 Encounter for preprocedural laboratory examination (principal); Z22.322 Carrier or suspected carrier of Methicillin resistant Staphylococcus aureus | CPT/HCPCS: 86850; 86900; 86901; 87070 ==

== ENCOUNTER 2024-04-16 05:42 | Inpatient (IN) | payer MEDICARE ==
--- NOTE | 2024-04-15 08:25 | P.HPOR ---
History of Present Illness H&P Date: 04/10/24 .D:Date: 04/10/24 : 02:50pm .T:Title: NATALIE SWARTZ [facility] HISTORY AND PHYSICAL Age: 78 year Height: 5'6" Weight: 200 lbs BMI: 32.28 kg/m2 Occupation: Retired VAS: 8 IMPRESSION: It was my pleasure to have seen and examinedPadmini.I reviewed the patient's clinical syndrome, physical findings, and imaging studies during the appointment today. It is my impression that the patient has a diagnosis of. 1. L2-S1 spondylosis with stenosis, severe 2. Bilateral lower extremity weakness 3. Neurogenic claudication Spine Surgery Risk Review Ms. Guerra is presenting for evaluation of low back and bilateral lower extremity pain, bilateral lower extremity pain, numbness, and tingling. It was my pleasure to have seen and examined Ms. Guerra. In our visit today we have had a chance to go over subjective complaints, physical examination findings and treatments including the natural course histo ry without intervention and various interventional options. The patients imaging demonstrates: CT Date: 12/21/2023 Location: [facility] Region:Lumbar Contrast:N images reviewed patient. Associated spondylosis which is severe from L2 down to S1. At L2 3 there is a large disc osteophyte complex causing severe central and bilateral foraminal stenosis. There is facet arthrosis throughout these areas causing moderate to severe stenosis as well. There is near complete disc desiccation and disc height loss from L2 through S1. There is flattening of normal lumbar lordosis secondary to this with Modic Type II and plate changes and cyst formation. THere is flattened LL due to these changes. NO lesions. NO fractures. MRI Date: 01/03/2024 Location: [facility] Region:Lumbar Contrast:N Similar findings with stenosis, spondylosis and disc degeneration with facet arthropathy and hypertrophy L2-S1. XRay Lumbar Multiview (AP, Lateral, Flexion, Extension) with AP pelvis; 5 [facility] at [facility] on 12/13/23: Moderate multilevel and degenerative changes with flattening of the normal lordosis. Multilevel dimishished disc height, L2-L3, L4-L5, L5-S1. Opposing endplate osteophytosis L5-S1. Moderate type changes to the superior endplate of L3. No acute osseous abnormalities. AP Pelvis: The visualized sacrum and iliac wings are within normal limits. Bilateral hip arthroplasty, hardware intact with no migration or failure. On physical exam, Ms. Guerra demonstrates: A continued throbbing, ache-like pain throughout the low back that is most severe after prolonged standing or walking. She notes little to no lumbar pain when at rest. She states her pain radiates down into the bilateral lower extremities on an intermittent basis after prolonged activity. She notes her leg pain is associated with numbness and tingling, but only at night prior to bed time from the knees down into the toes of the bilateral foot. SHe reports experiencing severe sleep disturbances related to her ongoing pain and associated symptoms. She states her current symptoms have been progressively worsening over the last several months. She notes her symptoms have become debilitating. I have explained to the patient that as their condition progresses it will cause further neurological deficits and eventual paralysis. Based on the patients imaging, physical exam, and the rapid progression and disabling nature of their symptoms, at this time I recommend surgery in the form of a: L2-pelvis decompression and fusion. I discussed the risk and benefits of this procedure at length with Ms. Guerra. The patient agreed to considered pursuing the procedure abovementioned. Prior to surgery, she should follow up with her PCP (Cardio, ID, IM etc) for clearance. Questions were invited and answered, and the patient wishes to proceed as outlined below. Currently, I am recommendin.L2-pelvis decompression and fusion 2.Review of surgical risks and benefits as well as an educational packet on the proposed surgical procedure. Risks: All surgical procedures come with inherent risks, including those related to positioning, anesthesia, intraoperative findings, and postoperative complications. It is important to understand that surgery does not come with any guarantee of a successful outcome as complications and adverse events are always possible. The patient was given a handout in office today discussing the surgical procedure and risks associated with the intervention, both of which were discussed with the patient. These risks include but are not limited to the following: * Experiencing same, different or even worse symptoms in back, neck, arms, or legs compared to before surgery. Requiring further surgery or other forms of treatment presently or at some time in the future at same or other levels of the intended spine surgery. On an extreme but fortunately relatively rare basis severe complication such as blindness, stroke, heart attack, temporary and/or permanent nerve injury, paralysis, coma, or may occur, sometimes without known explanation. Surgical complications may include but are not limited to risk of infection, fluid accumulation in the surgical dissection site, including a seroma or hematoma, that requires additional surgery, wound drainage, bleeding, new numbness or weakness, vision changes/loss, spinal fluid leakage, non-healing and/or infected incision, headaches, difficulty or inability to swallow, hoarseness, hemopneumothorax, pneumothorax, impotence, retrograde ejaculation, vaginal dryness; injury to nerves, spinal cord, blood vessels, lymphatics or other vital organs (i.e., bowel injury, injury to the great vessels); heterotopic bone formation; complications related to the hardware such as screws, rods, cages including misplaced hardware, device failure, i nstrumentation at the wrong spine level, hardware fracture/breakage, or hardware loosening; vertebral failure of the spinal column above or below the newly placed hardware; retained surgical instrumentations or devices and the need for further surgery. * Medical risks of the planned spine surgery include but are not limited to generalized Infections to the whole body or local areas outside of the surgical site (sepsis), heart attack, bleeding, anaphylaxis, meningitis, seizure, epilepsy, hearing loss, burn nation, laceration of the head or other areas of the body, bruising, hypersensitivity of the skin, bladder over distension; allergic reaction; shoulder injury related to positioning; fat, blood and air clots to other areas of the body like heart, lungs, brain; failure of internal organs such as lungs, kidneys, liver and excessive bleeding. If blood transfusions are necessary, note that transfusions may cause intolerance reactions such as anaphylaxis or other complex reactions. Despite best efforts, the results of spine surgery might not heal in terms of bone, soft tissues such as skin, fascia, ligaments, and joints. Additionally, in order to achieve best possible results, spine surgery may be carried out beyond the initially planned levels and involve decompression, fusion including insertion of hardware at levels other than the original intended area of surgical interest change some portions of the procedure in order to ensure the best possible outcomes. With spine surgery and spinal fusion, there are different off label uses of instrumentation (devices, implants and hardware) as well as biological substances (bone morphogenic proteins, demineralized bone matrix) as well as using extra bone from allograft sources (i.e. cadaver bone) or autograft (iliac crest bone, ribs, or the spine itself). The patient has been given information about these practices and their inherent risks and benefits. [facility] is an educational center that serves as a training facility for neurosurgical and orthopedic LAW EXAMINER and Nursing students. Physician assistants are medically trained surgical providers who function in the outpatient, inpatient, and operating room setting under the direct supervision of the attending surgeon. [facility] has multiple operating rooms with single and overlapping rooms running daily. They currently function under the required guidelines as produced by the [facility] Finance Committee with regards to the overlapping rooms and will continue to comply with changes to this policy as they occur. The requirements include and are complied with as follows: (1) the critical portions of the overlapping rooms will not occur at the same time, (2) the attending physician will be physically present during the critical portions of the procedure and immediately available during the entire case, and (3) a back-up attending is designated should the primary attending not be immediately available. The patient has had a chance to review all the listed information, has been given print outs detailing this information, and has had all his/her questions answered to their satisfaction. It was my pleasure to have seen and examined Ms. Guerra. In our visit today we have had a chance to go over my understanding of our patient's current condition, the natural course history without intervention and various interventional options. Questions were invited and answered, and the patient wishes to proceed as outlined above. I have seen and examined the patient for 25 minutes and we have spent more than 50% of the time in repeat and detailed counseling about the patient's condition, its natural course history with out and as much as can be predicted with surgery and re-review of various surgical treatment options. In conclusion, Ms. Guerra requested we proceed with the above suggested surgery and are willing to accept risks and limitations of the suggested surgery as nature of the disease process and our best attempts at treatment for the condition. FOLLOW UP: Post Procedure PATIENT EDUCATION: Medications Reviewed: YES In our visit today Ms. Guerra and I have had a chance to go over my understanding of the patient's current condition, the natural course history without intervention and various interventional options. Questions were invited and answered, and the patient wishes to proceed as outlined above. I will be sure to keep you updated after Ms. Guerra returns here for further follow-up. Thank you again for your referral. Please do not hesitate to contact me if you have any further questions. Signed and authenticated by: Roverto Archibald Aarti [facility] [address] [place] [place] [address] This message is confidential, intended only for the named recipient(s) and may contain information that is privileged or exempt from disclosure under applicable law. If you are not the intended recipient(s), you are notified that the dissemination, distribution or copying of this information is strictly prohibited. If you received this message in error, please notify the sender then delete this message. # SIGNED BY Roverto Madrigal (GOO)04/12/2024 09:02AM Past Medical History Past Medical History: Cancer, Deep Vein Thrombosis (DVT), Hyperlipidemia, Hypertension, Osteoarthritis (OA), Thyroid Disorder Additional Past Medical History / Comment(s): VERTIGO, thyroid ca 2009, DVT after 1976; chronic back pain. History of Any Multi-Drug Resistant Organisms: ESBL Date of last positivie culture/infection: 06/06/23 MDRO Source:: Urine Past Surgical History: Bladder Surgery, Cholecystectomy, Hernia Repair, Hysterectomy, Joint Replacement, Orthopedic Surgery, Tonsillectomy, Tubal Ligation Additional Past Surgical History / Comment(s): THYROIDECTOMY. RT ROTATOR CUFF SX, TOTAL RT HIP, Total Lt hip, precancer removed off finger. Past Anesthesia/Blood Transfusion Reactions: Postoperative Nausea & Vomiting (PONV) Additional Past Anesthesia/Blood Transfusion Reaction / Comment(s): NO HX BLOOD TRANSFUSION, PONV after one surgery-not sure which one. Smoking Status: Former smoker - Past Family History Daughter(s) Family Medical History: Cancer Additional Family Medical History / Comment(s): BREAST CANCER, AT AGE 37 YR. Father Family Medical History: Diabetes Mellitus Additional Family Medical History / Comment(s): AICD Mother Family Medical History: Hyperlipidemia, Hypertension Additional Family Medical History / Comment(s): GLAUCOMA,MAC DEGENERATION, BOWEL RESECTION/COLOSTOMY D/T OBSTRUCTION Medications and Allergies Home Medications Medication Instructions Recorded Confirmed Type Cholecalciferol [Vitamin D3 (25 1,000 unit PO DAILY 11/13/15 04/11/24 History Mcg = 1000 Iu)] Levothyroxine Sodium [Synthroid] 125 mcg PO HS 11/13/15 04/11/24 History Lisinopril/Hydrochlorothiazide 1 tab PO HS 11/13/15 04/11/24 History [Lisinopril-Hctz 20-25 mg Tab] Lovastatin 40 mg PO HS 11/13/15 04/11/24 History Aspirin [Adult Low Dose Aspirin EC] 81 mg PO DAILY 03/10/22 04/11/24 History Cinnamon Bark [Cinnamon] 1,200 mg PO DAILY 03/10/22 04/11/24 History Lutein 40 mg PO DAILY 03/10/22 04/11/24 History Tart [place] 1 tab PO DAILY 03/10/22 04/11/24 History Zinc 50 mg PO DAILY 03/10/22 04/11/24 History Ascorbic Acid [Vitamin C] 1,000 mg PO DAILY 04/11/24 04/11/24 History Biotin [Pbep-Baxw-Pgqjm] 10,000 mcg PO DAILY 04/11/24 04/11/24 History Calcium Carbonate 500 mg PO DAILY 04/11/24 04/11/24 History Gabapentin [Neurontin] 300 mg PO TID 04/11/24 04/11/24 History Joint [facility] Complex 1 dose PO DAILY 04/11/24 04/11/24 History Multivitamins, Thera [Multivitamin 1 tab PO DAILY 04/11/24 04/11/24 History (formulary)] Ubidecarenone [Co Q-10] 200 mg PO DAILY 04/11/24 04/11/24 History Allergies Allergy/AdvReac Type Severity Reaction Status Date / Time amoxicillin [From Augmentin] Allergy Nausea & Verified 04/11/24 15:20 Vomiting clavulanic acid Allergy Nausea & Verified 04/11/24 15:20 [From Augmentin] Vomiting morphine AdvReac Nausea & Verified 04/11/24 15:20 Vomiting tramadol AdvReac Nausea & Verified 04/11/24 15:20 Vomiting Physical Examination Osteopathic Statement: *. No significant issues noted on an osteopathic structural exam other than those noted in the History and Physical/Consult.
[~2024-04-16 05:42] MED LIST changes: -ACETAMINOPHEN TAB 500 MG TAB PO ONE; +ACETAMINOPHEN TAB 500 MG TAB PO PRN; -DEXAMETHASONE SOD PHOSPHATE 10 MG/ML 1 ML VIAL IV ONE; -HYDROmorphone 1 MG/ML 1 ML SYRINGE IVP PRN; -LACTATED RINGERS 1,000 ML IV SCH; -MELOXICAM 7.5 MG TAB PO ONE; -MIDAZOLAM 2 MG/2 ML VIAL IV PRN; -ONDANSETRON 4 MG/2 ML VIAL IVP ONE; +ONDANSETRON 4 MG/2 ML VIAL IVP PRN; -ROPIVACAINE 246.25 MG, EPINEPHrine 0.5 MG, KETOROLAC 30 MG, cloNIDine HCL/PF 80 MCG, WA... MISCELLANE ONE; +TRANEXAMIC 1,000 MG/100ML-NACL 1,000 MG in SALINE 1 100ML.BAG IVPB PRN; -TRANEXAMIC ACID 1,000 MG in SODIUM CHLORIDE 0.9% 100 ML IVPB ONE; -ceFAZolin 2 GM in SODIUM CHLORIDE 0.9% 100 ML IVPB ONE
[2024-04-16] MEDS: IV FLUID CONTINUATION 1,000 ML IV ONE (06:41)
[2024-04-16] MEDS: SCOPOLAMINE 1 MG/72 HR PATCH TRANSDERM STA (06:45)
[2024-04-16] MEDS: LACTATED RINGERS 1,000 ML IV SCH (06:57)
[2024-04-16] MEDS: ONDANSETRON 4 MG/2 ML VIAL IVP ONE (06:58)
[2024-04-16] MEDS: GABAPENTIN 300 MG CAP PO PRN (06:59)
[2024-04-16] MEDS: fentaNYL (PF) 50 MCG/ML 2 ML AMP IVP ONE (07:00)
[2024-04-16] MEDS: MIDAZOLAM 2 MG/2 ML VIAL IV ONE (07:00)
--- NOTE | 2024-04-16 07:20 | P.PN ---
Progress Note - Text Progress Note Date: 04/16/24 History and Physical UPDATE I have seen and examined the patient and reviewed the history and physical. There appear to be no significant changes in the patient's current medical status as outlined in the current History and Physical.
[2024-04-16] MEDS ORDERED: SUCCINYLCHOLINE CHLORIDE 200 MG/10 ML VIAL IV ONE (07:29)
[2024-04-16] MEDS ORDERED: ePHEDrine 50 MG/ML 1 ML VIAL ONE (07:29)
[2024-04-16] MEDS ORDERED: PHENYLEPHRINE 10 MG/ML VIAL ONE (07:29)
[2024-04-16] MEDS ORDERED: PROPOFOL 10 MG/ML 20 ML VIAL IV ONE (07:29)
[2024-04-16] MEDS ORDERED: ROCURONIUM 10 MG/ML (5 ML VIAL) IV ONE (07:29)
[2024-04-16] MEDS ORDERED: KETAMINE HCL IN 0.9 % NACL 50 MG/5 ML SYRINGE ONE (07:29)
[2024-04-16] MEDS ORDERED: GLYCOPYRROLATE 0.2 MG/ML 2 ML VIAL ONE (07:29)
[2024-04-16] MEDS ORDERED: LIDOCAINE 1% INJ 10MG/ML (20 ML MDV) ONE (07:29)
[2024-04-16] MEDS ORDERED: fentaNYL (PF) 50 MCG/ML 2 ML AMP ONE (07:29)
[2024-04-16] MEDS ORDERED: TRANEXAMIC 1,000 MG/100ML-NACL PREMIX BAG ONE (07:29)
[2024-04-16] MEDS ORDERED: DEXAMETHASONE SOD PHOSPHATE 10 MG/ML 1 ML VIAL ONE (07:29)
[2024-04-16] MEDS: DEXAMETHASONE SOD PHOSPHATE 4 MG/ML 1 ML VIAL IV ONE (07:34)
[2024-04-16] MEDS: LACTATED RINGERS 1,000 ML IV ONE ×3 (07:36→12:06)
--- NOTE | 2024-04-16 08:07 | P.ANPRN ---
Procedure Note - Anesthesia - Invasive Line Left Arterial Line Time Out Performed: Yes (07) Date of Procedure: 04/16/24 Time of Procedure: 07:01 Location of Patient: PreOp Preparation: Sterile Prep, Sterile Dressing Arterial Line Location: Radial (left) Ultrasound Used: No Purpose - Visualization and Identification of Vasculature: No Needle Guage: 20g Image Stored and Saved: No Narrative: Invasive line placement per sterile protocol utilized. attempt x2. Pulsitile flow. Bled and flushed. Secured and dressed
--- NOTE | 2024-04-16 08:09 | P.ANPRN ---
Procedure Note - Anesthesia - Invasive Line Right Central Line Time Out Performed: Yes (0700) Date of Procedure: 04/16/24 Time of Procedure: 07:12 Location of Patient: PreOp Preparation: Sterile Prep, Sterile Dressing Central Line Location: Internal Jugular (right IJ) Ultrasound Used: Yes Purpose - Visualization and Identification of Vasculature: Yes Needle Guage: 18g Image Stored and Saved: Yes Narrative: Invasive line placement per sterile protocol utilized. Anesthesia note Procedure: Right internal jugular central venous catheter insertion: Double- lumen catheter Sterile protocol followed. Right neck prepped. Ultrasound used. Lidocaine 1% used. Using ultrasound local anesthetic was instilled site over right Internal Jugular vein. Angiocath was used to gain access via ultrasound. Once free flow non-pulsatile blood flow was confirmed, 12 inch extension tubing was then placed on Angiocath. Once central venous pressure was confirmed, J-wire was then placed through Angiocath. Angiocath was then withdrawn. Local was instilled at J-wire site. Small skin velia was then made with provided sterile scalpel. Right IJ double-lumen catheter was then inserted over the wire while maintaining control of wire at all times. Uneventful insertion and dilation. Free flow nonpulsatile blood flow through double-lumen catheter hooked up to IV tubing. Secured with suture. Dressings applied. Drapes Removed. Attempts x1.
[2024-04-16] MEDS: THROMBIN (BOVINE) 5,000 UNIT VIAL TOPICAL ONE (08:14)
[2024-04-16] MEDS: GENTAMICIN 80 MG in SODIUM CHLORIDE 0.9% IRRIGATIO 3,000 ML IRRIGATION ONE (08:14)
[2024-04-16] MEDS: ceFAZolin 3,000 MG in SODIUM CHLORIDE 0.9% IRRIGATIO 3,000 ML IRRIGATION ONE (08:14)
[2024-04-16] MEDS: SODIUM CHLORIDE 0.9% 100 ML with ceFAZolin 2,000 MG IV ONE (10:58)
[2024-04-16] MEDS: VANCOMYCIN 1,000 MG VIAL MISCELLANE ONE (12:00)
[2024-04-16 12:22] LABS: ABG Base Excess -2.9 mmol/L; ABG Glucose Whole Blood 115 mg/dL (75-99); ABG HCO3 22 mmol/L (21-25); ABG Hematocrit 28 % (34.0-46.0); ABG Ionized Calcium 4.1 mg/dL (4.5-5.3); ABG Oxygen Saturation 99.1 % (94-97); ABG PCO2 37 mmHg (35-45); ABG PH 7.38 (7.35-7.45); ABG PO2 226 mmHg (83-108); ABG Potassium Whole Blood 3.6 mmol/L (3.4-4.5); ABG Sodium Whole Blood 142 mmol/L (135-146); ABG TCO2 21 mmol/L (19-24); Allen Test Performed? Yes
[2024-04-16 12:34] LABS: ABG Lactic Acid Whole Blood 3.9 mmol/L (0.5-1.6)
--- NOTE | 2024-04-16 12:36 | FL ---
Fluoroscopy INDICATION: Pain fusion FINDINGS: Fluoroscopy time: 1 minute 29 seconds. Total dose area product (DAP) in uGy*m?, mGy*cm? (or similar): 25.795 Images obtained: 0. IMPRESSION: 1. Documentation of fluoroscopy.
--- NOTE | 2024-04-16 13:03 | XR ---
EXAMINATION TYPE: XR lumbar spine 2 or 3V Intraoperative/procedural fluoroscopic services were provid ed. Total fluoroscopy time is 1 min 12 sec seconds with a total of 9 submitted images to PACS. Bere peterson see the operative/procedural note for further details. DAP: 25.795 Gycm2
[2024-04-16] MEDS ORDERED: SENNOSIDES-DOCUSATE SODIUM 1 EACH TAB PO PRN ×2 (13:07→13:10)
[2024-04-16] MEDS ORDERED: MAGNESIUM HYDROXIDE 2,400 MG/30 ML CUP PO PRN (13:10)
[2024-04-16] MEDS ORDERED: HYDROmorphone 0.5 MG/0.5 ML SYRINGE IVP PRN (13:10)
[2024-04-16] MEDS ORDERED: HYDROcodone/APAP 10-325MG 1 EACH TAB PO PRN (13:10)
[2024-04-16] MEDS ORDERED: HYDROmorphone 1 MG/ML 1 ML SYRINGE IVP PRN (13:10)
[2024-04-16] MEDS ORDERED: CYCLOBENZAPRINE 5 MG TAB PO PRN (13:10)
[2024-04-16] MEDS ORDERED: HYDROcodone/APAP 5-325MG 1 EACH TAB PO PRN (13:10)
[2024-04-16 13:24] LABS: HCT 31.2 % (34.0-46.0); HGB 10.4 gm/dL (11.4-16.0); MCH 32.3 pg (25.0-35.0); MCHC 33.4 g/dL (31.0-37.0); MCV 96.9 fL (80.0-100.0); Mean Platelet Volume 9.2; Platelet Count 227 k/uL (150-450); RBC 3.22 m/uL (3.80-5.40); RDW 14.2 % (11.5-15.5)
--- NOTE | 2024-04-16 14:00 | P.OP ---
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 (Acute) Lumbar stenosis with neurogenic claudication (Acute) Neurogenic claudication (Acute) Procedure(s) Performed: L4-5 INTRADISCAL, 3 COLUMN, OSTEOTOMY FOR DEFORMITY CORRECTION L3-4 INTRADISCAL, 3 COLUMN, OSTEOTOMY FOR DEFORMITY CORRECTION L2-3 INTRADISCAL, 3 COLUMN, OSTEOTOMY FOR DEFORMITY CORRECTION L5-S1 POSTEROLATERAL AND INTERBODY FUSION L4-5 POSTEROLATERAL AND INTERBODY FUSION L3-4 POSTEROLATERAL AND INTERBODY FUSION L2-3 POSTEROLATERAL AND INTERBODY FUSION L2-PELVIS SEGMENTAL INSTRUMENTATION ATTACHMENT OF THE CAUDAL END OF CONSTRUCT TO BONY PELVIS, NOT SACRUM BILATERAL OPEN SACROILLIAC JOINT FUSION FOR LONG CONSTRUCT STABILITY AND SI JOINT STABILITY L2-3 BILATERAL LAMINECTOMY, COMPLETE FACETECTOMY AND FORAMINOTOMY L3-4 BILATERAL LAMINECTOMY, COMPLETE FACETECTOMY AND FORAMINOTOMY L4-5 BILATERAL LAMINECTOMY, COMPLETE FACETECTOMY AND FORAMINOTOMY L5-S1 BILATERAL LAMINECTOMY, COMPLETE FACETECTOMY AND FORAMINOTOMY L2-3, L3-4, L4-5, L5-S1 INSERTION OF BIOMECHANICAL DEVICE, CAGE, INTERBODY SPACE USE OF Juxinli NAVIGATION FOR SCREW PLACEMENT USE OF IONM ALL SCREWS TESTING >20mA Implants: -KELVIN EVEREST RODS AND SCREWS -GLBOUS SABLE CAGES X3 -GLOBUS RISE INTRALIFT CAGE X1 -MAGNATOS, ARTHROCELL, DBM (DISC SPACE) -CONTOUR, AUTOGRAFT, ALLOCELL AF (GUTTERS) Anesthesia: GETA Surgeon: Roverto Madrigal Estimated Blood Loss (ml): 750 IV fluids (ml): 2,800 Urine output (ml): 825 Pathology: none sent Condition: stable Disposition: PACU Indications for Procedure: Ms. Guerra is presenting for evaluation of low back and bilateral lower extremity pain, bilateral lower extremity pain, numbness, and tingling. It was my pleasure to have seen and examined Ms. Guerra. In our visit today we have had a chance to go over subjective complaints, physical examination findings and treatments including the natural course history without intervention and various interventional options. The patients imaging demonstrates: CT Date: 12/21/2023 Location: [facility]:Lumbar Contrast:N images reviewed patient. Associated spondylosis which is severe from L2 down to S1. At L2 3 there is a large disc osteophyte complex causing severe central and bilateral foraminal stenosis. There is facet arthrosis throughout these areas causing moderate to severe stenosis as well. There is near complete disc desiccation and disc height loss from L2 through S1. There is flattening of normal lumbar lordosis secondary to this with Modic Type II and plate changes and cyst formation. THere is flattened LL due to these changes. NO lesions. NO fractures. MRI Date: 01/03/2024 Location: [facility]:Lumbar Contrast:N Similar findings with stenosis, spondylosis and disc degeneration with facet arthropathy and hypertrophy L2-S1. XRay Lumbar Multiview (AP, Lateral, Flexion, Extension) with AP pelvis; 5 viewstaken at [facility] on 12/13/23: Moderate multilevel and degenerative changes with flattening of the normal lordosis. Multilevel dimishished disc height, L2-L3, L4-L5, L5-S1. Opposing endplate osteophytosis L5-S1. Moderate type changes to the superior endplate of L3. No acute osseous abnormalities. AP Pelvis: The visualized sacrum and iliac wings are within normal limits. Bilateral hip arthroplasty, hardware intact with no migration or failure. On physical exam, Ms. Guerra demonstrates: A continued throbbing, ache-like pain throughout the low back that is most severe after prolonged standing or walking. She notes little to no lumbar pain when at rest. She states her pain radiates down into the bilateral lower extremities on an intermittent basis after prolonged activity. She notes her leg pain is associated with numbness and tingling, but only at night prior to bed time from the knees down into the toes of the bilateral foot. SHe reports experiencing severe sleep disturbances related to her ongoing pain and associated symptoms. She states her current symptoms have been progressively worsening over the last several months. She notes her symptoms have become debilitating. I have explained to the patient that as their condition progresses it will cause further neurological deficits and eventual paralysis. Based on the patients imaging, physical exam, and the rapid progression and disabling nature of their symptoms, at this time I recommend surgery in the form of a: L2-pelvis decompression and fusion. I discussed the risk and benefits of this procedure at length with Ms. Guerra. The patient agreed to considered pursuing the procedure abovementioned. Prior to surgery, she should follow up with her PCP (Cardio, ID, IM etc) for clearance. Questions were invited and answered, and the patient wishes to proceed as outlined below. Currently, I am recommendin.L2-pelvis decompression and fusion Description of Procedure: L2-PELVIS DECOMPRESSION AND FUSION (PANFILO) The patient was seen and examined in the preoperative area. All preoperative pr otocols were followed. Informed consent was obtained, risks and benefits of the procedure were discussed at length. Risks including bleeding infection damage to the surrounding tissue and risk of reoperation were discussed with the patient. Risk of anesthesia up to and including was discussed with the patient. These are outlined in the risk review. They were willing to accept these risks and all the risks of surgery. The patient was given a weight-based dose of antibiotics in the form of 3 g Ancef. The patient was seen and evaluated by the anesthesia team who deemed them fit for surgery. The site was marked, the patient was willing to proceed with the procedure. The patient was transferred to the operative suite by the Department of anesthesia. They were then drifted off to sleep by the department anesthesia and GETA was performed. The patient tolerated this well. Freeman catheter was placed by nursing staff, a-traumatically. Once confirmation of lines and ventilation the patient was transferred to a prone Trios spine table very carefully. The head was secured and stable. X Ray confirmed alignment. All bony prominences including wrists, elbows, axilla, chest, hips, and thighs, and feet were padded very well. Special attention was paid to the genitalia, and these were padded accordingly. SCDs were placed on bilateral lower extremities and were connected. Arms were well padded and placed at 90/90 up and out and well padded. Safety strap and tape placed on the patient. Once in position, again we confirmed good ventilation capabilities and that lines were running appropriately. The patients lumbosacral pelvic was then exposed. Hair was removed for incision. 1010s were placed outlining the incision site. Standard alcohol was used to clean the incision site and allowed to dry. C-arm was used to bio-tania the patient and confirm level for incision which was marked with a skin marker. Operative briefing was performed with all teams and everyone in a greement to proceed. The patient was then prepped and draped in a normal sterile fashion. Timeout was then performed, and all parties agreed with the procedure to be performed. Midline skin incision was then made over the previously bookmarked area and dissection taken down to the lumbosacral fascia which was identified and cleaned with a ricks. There was excessive sub-q adipose that was obtrusive and needed to be retracted. Once midline was identified, fasciotomy was made over the SP of L1-S1 and pelvis. Subperiosteal dissection was then taken down over the lamina and facet joints and TPs were exposed and trough made posterolateral. TPs were then decorticated with a high speed adelita for lateral fusion. Dissection was taken out over the sacrum to the pelvis. SI joint identified and S2Ai starting point for pelvic screws identified as well. Retractors placed. Wound was irrigated and lateral image with penfield 4 placed at the pars of L4 confirmed levels for operation. SP clamp was then placed for the Venturocket navigation tracker and secured. The wound was then filled with NSS and Z-drape. A 3D Ziehm spin was then obtained and registered. Once confirmation of accuracy screws were then placed from L2-Pelvis using navigation. Navigated high speed adelita was used to make a fighter pilot hole followed by a navigated awl-tap passed through the pedicle into the body. A ball tip probe then confirmed within the pedicle. Screw was then measured and placed using a navigated screwdriver. After screws were placed from L2-S1, AP image confirmed safe placement of screws. Lateral images as well as navigation were then used to place bilateral pelvic screws. Starting point selected just lateral to the SI joint and S2 pseudo facet. Lateral image taken and adelita used to make the fighter pilot hole. Navigated awl tap was then placed using Venturocket panfilo followed by a navigated measured screw. This was repeated on the opposite side and screws were confirmed to be in good position on Inlet and outlet views. We then decorticated the SI joint and placed in a superior S2Ai trajectory SI screws for fusion and further stabilization of the SI joint in a long construct. Navigated adelita followed by panfilo awl tap were sent across the SIJ, ball tip confirmed in the bone and then a navigated screw driver messenger with measured SI fusion screw from [employer]. These screws were placed bilaterally for dual fixation across the SIJ bilaterally. They were confirmed to be in good position on AP/LAT/INLET/OUTLET views along with all other screws in construct. Screws were then tested, and reliably tested screws tested above 20 mA. We then proceeded to decompression and interbody placement. Starting at L5-S1, bilateral laminectomy, complete facetectomy and foraminotomies were performed using high speed bur, Kerrison rongeur. There was exuberant bone formation, osteophytes and scar tissue surrounding these joints as well as the dura. Once exposed the neural elements were protected Osteotome was used to make osteotomy in L5 and S1 and for complete disc removal. This allowed for loosening of this level and correction. A cage was then selected based on shaving and trials. Bleeding endplates were encountered and cartilage removed. Autograft, allograft were then placed anterior to the cage. The cage was then impacted into place under lateral imaging while protecting neural elements. The cage was then expanded into position and showed good lift and correction. Zoroastrian of lordosis and height achieved. Meticulous hemostasis then performed. Cage was backfilled with DBM and the area irrigated. We then proceeded to L4-5. At L4-5, bilateral laminectomy, complete facetectomy and foraminotomy was performed as described above. Again, exuberant scar tissue and bone formation w as encountered and at this level specifically around the pars due to the defect and slip in this area. There was also a large disc osteophyte complex that was identified once disc space was found. The dura was carefully dissected off this anteriorly and b/l. Once encountered, the disc space was then accessed in a similar fashion and neural elements protected. Intradiscal, 3 column osteotomies, for deformity correction was then performed again at this level as described above. Once completed and complete discectomy performed there was good mobility at this level. Cage was then sized and selected. Autograft and allograft was then placed anterior in the disc space and the cage was then inserted and impacted into place under lateral. AP image, as before, was taken to ensure midline placement. The cage was then expanded into position. During expansion, the cage seemed to fail to expand completely on the RHS. The LHS expanded very well and recreated height and lordosis. The cage was tested and was very stable and since it was in safe position without any other issues it was elected to keep the cage in position. The wound was irrigated. Meticulous hemostasis then performed, and attention turned to L3-4. At L3-4 again bilateral laminectomy, complete facetectomy and foraminotomy were performed. The elements were then protected, and disc space accessed. Intradiscal, 3 column osteotomies, for deformity correction was then performed again at this level as described above. Once completed and complete discectomy performed there was good mobility at this level. Cage was then sized and selected. Autograft and allograft was then placed anterior in the disc space and the cage was then inserted and impacted into place under lateral. AP image, as before, was taken to ensure midline placement. The cage was then expanded into position. During expansion, the cage seemed to fail to expand completely on the RHS. The LHS expanded very well and recreated height and lordosis. The cage was tested and was very stable and since it was in safe position without any other issues it was elected to keep the cage in position. The wound was irrigated. Meticulous hemostasis then performed and we proceeded to L2-3 level. At L2-3 again bilateral laminectomy, complete facetectomy and foraminotomy were performed. The elements were then protected, and disc space accessed. Intradiscal, 3 column osteotomies, for deformity correction was then performed again at this level as described above. Once completed and complete discectomy performed there was good mobility at this level. Cage was then sized and selected. Autograft and allograft was then placed anterior in the disc space and the cage was then inserted and impacted into place under lateral. AP image, as before, was taken to ensure midline placement. The cage was then expanded into position. During expansion, the cage seemed to fail to expand completely on the RHS. The LHS expanded very well and recreated height and lordosis. The cage was tested and was very stable and since it was in safe position without any other issues it was elected to keep the cage in position. The wound was irrigated. Meticulous hemostasis then performed and the wound was inspected. AP and LAT images taken showed cages in good position with good baptism of height and overall lordosis to the lumbar spine. Attention was then drawn to valdo placement. Rods were selected, measured, cut and bent to appropriate lordosis. They were then secured into pelvic screws b/l. Sequential reduction then done into each screw and set screw placed. Set screws were then final tightened and lateral image showed good lordosis reduction with increase around 10 deg from starting. Once rods were secured, cross links were selected and placed and final tightened. The wound was then irrigated with 3L Ancef irrigation, 3L gentamicin irrigation 1L Irricept, 1L betadine solusion and 3L NSS. Surgicel was then placed on the dura, which was inspected and had no injury. Then, in the posterolateral gutter was placed, Contour, Autograft and allograft. This was impacted into position and surgical placed over it. 2g Vanco powder was then placed deep in the wound. A deep, subfascial drain was placed and a superficial facial drain placed. We then proceeded with layered closure. #1 PDS placed in the deep fascia. 0 Vicryl placed in the deep subq, 2-0 placed in the superficial subq and felipa placed in the skin. The wound edges approximated very well. The wound was then cleaned with ETOH and dressed with optifoam dressing, drain sponges and tegaderms. Drains sewed into position. IONM confirmed no changes. The patient was then transferred off the [facility] spine table to their hospital bed a-traumatically. Drains continued to hold suction. The patient was then extubated and transferred to the ICU in stable condition having tolerated the procedure with no complications.
[2024-04-16] MEDS: fentaNYL (PF) 50 MCG/ML 2 ML AMP IV PRN (14:17)
--- NOTE | 2024-04-16 14:56 | P.GSCN ---
History of Present Illness Consult date: 04/16/24 Reason for Consult: Abdominal swelling History of present illness: 78-year-old female here today for elective back surgery. Apparently preoper atively patient was noted to have a distended abdomen. Nasogastric tube was placed by anesthesia which led to some decompression apparently. She is in the recovery room currently. She is sedated still from recent anesthesia and not able to provide any significant history. She does deny abdominal pain. 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 Previous CAT scan from 2 years ago with a adnexal cyst without any other obvious pathology to explain abdominal bloating. Last colonoscopy 2 years ago showed a few small adenomas. No recent complaints. Review of Systems Unable to obtain because of patient's mental status currently with anesthesia on board Past Medical History Past Medical History: Cancer, Deep Vein Thrombosis (DVT), Hyperlipidemia, Hypertension, Osteoarthritis (OA), Thyroid Disorder Additional Past Medical History / Comment(s): VERTIGO, thyroid ca 2009, DVT af ter 1976; chronic back pain. History of Any Multi-Drug Resistant Organisms: ESBL Year Discovered:: 06/06/23 MDRO Source:: Urine Past Surgical History: Bladder Surgery, Cholecystectomy, Hernia Repair, Hysterectomy, Joint Replacement, Orthopedic Surgery, Tonsillectomy, Tubal Ligation Additional Past Surgical History / Comment(s): THYROIDECTOMY. RT ROTATOR CUFF SX, TOTAL RT HIP, Total Lt hip, precancer removed off finger. Past Anesthesia/Blood Transfusion Reactions: Postoperative Nausea & Vomiting (PONV) Additional Past Anesthesia/Blood Transfusion Reaction / Comm: NO HX BLOOD TRANSFUSION, PONV after one surgery-not sure which one. Smoking Status: Former smoker - Past Family History Daughter(s) Family Medical History: Cancer Additional Family Medical History / Comment(s): BREAST CANCER, AT AGE 37 YR. Father Family Medical History: Diabetes Mellitus Additional Family Medical History / Comment(s): AICD Mother Family Medical History: Hyperlipidemia, Hypertension Additional Family Medical History / Comment(s): GLAUCOMA,MAC DEGENERATION, BOWEL RESECTION/COLOSTOMY D/T OBSTRUCTION Medications and Allergies Home Medications Medication Instructions Recorded Confirmed Type Cholecalciferol [Vitamin D3 (25 1,000 unit PO DAILY 11/13/15 04/16/24 History Mcg = 1000 Iu)] Levothyroxine Sodium [Synthroid] 125 mcg PO HS 11/13/15 04/16/24 History Lisinopril/Hydrochlorothiazide 1 tab PO HS 11/13/15 04/16/24 History [Lisinopril-Hctz 20-25 mg Tab] Lovastatin 40 mg PO HS 11/13/15 04/16/24 History Aspirin [Adult Low Dose Aspirin EC] 81 mg PO DAILY 03/10/22 04/16/24 History Cinnamon Bark [Cinnamon] 1,200 mg PO DAILY 03/10/22 04/16/24 History Lutein 40 mg PO DAILY 03/10/22 04/16/24 History Tart Jefferson 1 tab PO DAILY 03/10/22 04/16/24 History Zinc 50 mg PO DAILY 03/10/22 04/16/24 History Ascorbic Acid [Vitamin C] 1,000 mg PO DAILY 04/11/24 04/16/24 History Biotin [Izza-Mmat-Gxdan] 10,000 mcg PO DAILY 04/11/24 04/16/24 History Calcium Carbonate 500 mg PO DAILY 04/11/24 04/16/24 History Gabapentin [Neurontin] 300 mg PO TID 04/11/24 04/16/24 History Joint Advanced Health Complex 1 dose PO DAILY 04/11/24 04/16/24 History Multivitamins, Thera [Multivitamin 1 tab PO DAILY 04/11/24 04/16/24 History (formulary)] Ubidecarenone [Co Q-10] 200 mg PO DAILY 04/11/24 04/16/24 History Allergies Allergy/AdvReac Type Severity Reaction Status Date / Time amoxicillin [From Augmentin] AdvReac Nausea & Verified 04/16/24 06:38 Vomiting clavulanic acid AdvReac Nausea & Verified 04/16/24 06:38 [From Augmentin] Vomiting morphine AdvReac Nausea & Verified 04/16/24 06:37 Vomiting tramadol AdvReac Nausea & Verified 04/16/24 06:37 Vomiting Surgical - Exam Vital Signs Temp Pulse Resp BP Pulse Ox 96.7 F L 46 L 16 131/58 95 04/16/24 06:35 04/16/24 06:35 04/16/24 06:35 04/16/24 06:35 04/16/24 06:35 Physical exam: General: Well-developed, well-nourished HEENT: Normocephalic, sclerae nonicteric, right IJ in place Abdomen: Nontender, mild distention Extremities: No edema Neuro: Alert Results - Labs 04/16/24 12:21 Abnormal Lab Results - Last 24 Hours (Table) 04/10/24 04/16/24 Range/Units 16:36 12:21 RBC 3.22 L (3.80-5.40) m/uL Hgb 10.4 L (11.4-16.0) gm/dL Hct 31.2 L (34.0-46.0) % Crossmatch See Detail Assessment and Plan (1) Abdominal distention Narrative/Plan: 78-year-old female with abdominal distention. Keep nasogastric tube to low intermittent suction for today. Obtain abdominal x-rays tomorrow. Add Reglan. Will follow. Current Visit: Yes Status: Acute Code(s): R14.0 - ABDOMINAL DISTENSION (GASEOUS) SNOMED Code(s): 41043761
[2024-04-16] MEDS: ACETAMINOPHEN TAB 500 MG TAB PO SCH (15:07)
[2024-04-16] MEDS: HYDROmorphone 1 MG/ML 1 ML SYRINGE IVP PRN (15:33)
[2024-04-16] MEDS ORDERED: GABAPENTIN 300 MG CAP PO SCH (16:00)
[2024-04-16] MEDS: METOCLOPRAMIDE 5 MG/ML 2 ML VIAL IVP SCH (16:16)
[2024-04-16] MEDS: CAFFEINE-SODIUM BENZOATE 500 MG in SODIUM CHLORIDE 0.9% 100 ML IVPB ONE (16:21)
--- NOTE | 2024-04-16 16:56 | CT ---
EXAMINATION TYPE: CT lumbar spine wo con DATE OF EXAM: 04/16/2024 COMPARISON: 12/21/2023 HISTORY: post-op CT DLP: 2126.4 mGycm CONTRAST: None TECHNIQUE: CT of the lumbar spine is performed on a spiral scan at 3 mm thick sections. Reconstructed images are performed in the coronal and sagittal planes. FINDINGS: T11-T12: No focal disc herniation or significant disc bulge is evident. No spinal canal stenosis or neural foraminal stenosis is present. T12-L1: No focal disc herniation or significant disc bulge is evident. No spinal canal stenosis or neural foraminal stenosis is present. L1-L2: No focal disc herniation or significant disc bulge is evident. No spinal canal stenosis or n eural foraminal stenosis is present. L2-3 through L5-S1: Disc spacers have been placed. Pedicle screws are present. This causes some beam hardening artifact in some limitation. L2-L3: Endplate spurring with associated calcified disc has mild anterior compression. Left hemilamin ectomy is evident. L3-L4: This level is essentially nondiagnostic due to the beam artifact. There is evidence of a left laminectomy. L4-L5: Left hemilaminectomy is evident. Facet hypertrophy is evident on the right. Lateral recesses a ppear patent L5-S1: No obvious spinal canal stenosis Vertebral alignment appears normal. Disc spacers improved the disc levels presurgical evaluation. IMPRESSION: 1. Postsurgical changes L2-S1. There is limitation due to the beam hardening artifact from the pedicl e screws. 2. No obvious stenosis identified. Multiple laminectomies been performed.
[2024-04-16] MEDS: CYCLOBENZAPRINE 10 MG TAB PO SCH (17:18)
[2024-04-16] MEDS: GABAPENTIN 300 MG CAP PO SCH (17:19)
[2024-04-16] MEDS ORDERED: ACETAMINOPHEN TAB 325 MG TAB PO SCH (18:00)
[2024-04-16] MEDS: 0.9% NACL WITH KCL 20 MEQ/L 1,000 ML IV SCH (18:30)
[2024-04-16] MEDS: LEVOTHYROXINE 125 MCG TAB PO SCH (21:51)
[2024-04-16] MEDS: ATORVASTATIN 10 MG TAB PO SCH (21:51)
[2024-04-16] MEDS: LISINOPRIL-HCTZ 20-25 MG 1 EACH TAB PO SCH (21:51)
[2024-04-17] MEDS: ONDANSETRON 4 MG/2 ML VIAL IVP PRN (05:22)
[2024-04-17] MEDS: ACETAMINOPHEN IV (For NPO) 1,000 MG in EMPTY BAG 1 BAG IVPB SCH (06:59)
[2024-04-17] MEDS: KETOROLAC 15 MG/ML 1 ML VIAL IVP SCH (07:00)
[2024-04-17] MEDS: DEXAMETHASONE SOD PHOSPHATE 10 MG/ML 1 ML VIAL IVP STA (07:01)
--- NOTE | 2024-04-17 07:26 | P.PN ---
Subjective Progress Note Date: 04/17/24 Principal diagnosis: L2-S1 SPONDYLOSIS WITH STENOSIS; NEUROGENIC CLAUDICATION Pt s/e this AM she is sitting up in chair, but painful. She has NG tube in still. Hammond in place. She is doing OK. She states an OK night, pain controlled with IV meds due to NPO status with distended belly and abdominal work up. She states no issues with her legs or back. States when she is resting she has little to no back pain and when she gets up it is 8/10. She states no RUGGIERO, N, V, F, C, SOB, CP at this time. Objective - Vital Signs Vital signs: Vital Signs Temp 97.9 F 04/17/24 02:00 Pulse 68 04/17/24 02:00 Resp 20 04/17/24 02:00 BP 122/70 04/17/24 02:00 Pulse Ox 97 04/17/24 02:00 FiO2 Intake & Output 04/16/24 04/17/24 04/17/24 18:59 06:59 18:59 Intake Total 3152 Output Total 2130 575 Balance 1022 -575 Weight 90 kg Intake: IV 3152 Blood Product 0 Unit 0 Output: Gastric Drainage 100 Drainage 80 200 Back 80 200 Urine 1200 375 Estimated Blood Loss 750 Other: Voiding Method Indwelling Catheter - Exam Physical Exam: -Patient is alert and oriented 3 appears well-nourished well-hydrated is in no acute distress. They do not appear septic. -There is TTP lumbar spine around incision no fluctuance [-Incision is CDI, no EEE, no drainage] -Upper extremities show [5] out of 5 strength in all major muscle groups. -Lower extremities with 4+ out of 5 strength in all major muscle groups normal deconditioning postsurgical -There is [FROM] that is [painless] of the b/l UE and LE in all major joints. Negative straight leg raise -They are intact to light touch sensation in C5 to T1 and L2 to S1 nerve distribution. She has normal numbness in bilateral lower extremities which has not resolved yet which she states feels somewhat better -DTR [2]/4 all upper and lower extremities -Patient has palpable distal pulses all 4 ext -Compartments are soft and compressible. -Patient shows a negative Yung's [-Neg Hoffmans b/l] [-Neg Clonus b/l] [-Neg babinski b/l] Cranial nerves II through XII are grossly intact. Drain output 280 mL since surgery 110 mL overnight - Gastrointestinal General gastrointestinal: Present: distended, normal bowel sounds, soft, tenderness - Neurologic Neurologic: Present: CNII-XII intact - Psychiatric Psychiatric: Present: A&O x's 3, appropriate affect - Labs CBC & Chem 7: 04/16/24 12:21 Labs: Abnormal Lab Results - Last 24 Hours (Table) 04/10/24 04/16/24 04/16/24 Range/Units 16:36 12:21 12:30 RBC 3.22 L (3.80-5.40) m/uL Hgb 10.4 L (11.4-16.0) gm/dL Hct 31.2 L (34.0-46.0) % ABG pO2 226 H (83-108) mmHg ABG O2 Saturation 99.1 H (94-97) % ABG Hematocrit 28 L (34.0-46.0) % ABG Ionized Calcium 4.1 L (4.5-5.3) mg/dL ABG Glucose 115 H (75-99) mg/dL ABG Lactic Acid 3.9 H* (0.5-1.6) mmol/L Hemoglobin 9.1 L (11.4-16.0) gm/dL Arterial Blood Glucose 115 H (75-99) mg/dL Crossmatch See Detail - Imaging and Cardiology Computed tomography scan of the lumbar spine is reviewed and demonstrates hardware in good position with good reduction of lordosis as well as rastafarian of height and alignment. Good decompression with wide laminectomies. No comp licating process seen Assessment and Plan (1) Lumbar stenosis with neurogenic claudication Narrative/Plan: POSTOP DAY 1 L2-PELVIS DECOMPRESSION AND FUSION -Appreciate incident response consultant and team management. -Activity: Ambulate QID, OOB all meals, up and about, limit lifting bending twisting to less than 5 lbs. Use walker or cane if needed for stability. -Daily PT/OT, increase ambulation strength and balance. -Brace when up and about, not needed in bed or chair -Pain control: Add IV Tylenol, IV Toradol and 1 dose 10 mg Decadron for pain co ntrol due to nothing by mouth status -Meds: reviewed -GI ppx: senna, Miralax -DC hammond when up and about, bedside commode if needed -DVT PPX: OK to restart Heparin tonight -Hygiene: Shower today. Maintain dressing clean and dry. Meticulous cleaning after BMs away from incision site -Drains: Maintain for now. Record output -Encourage IS 10x/hr -Dispo: Pending Current Visit: Yes Status: Acute Priority: Medium Code(s): M48.062 - SPINAL STENOSIS, LUMBAR REGION WITH NEUROGENIC CLAUDICATION SNOMED Code(s): 39680844
[2024-04-17 08:41] LABS: Basophils # (A) 0.01 X 10*3/uL (0.00-0.10); Basophils % (A) 0.1 %; Eosinophils # (A) 0 X 10*3/uL (0.04-0.35); Eosinophils % (A) 0 %; HCT 32.7 % (37.2-46.3); HGB 10.7 g/dL (12.0-15.0); Lymphocytes # (A) 0.63 X 10*3/uL (0.90-5.00); Lymphocytes % (A) 7.7 %; MCH 31.7 pg (27.0-32.0); MCHC 32.7 g/dL (32.0-37.0); MCV 96.7 FL (80.0-97.0); Mean Platelet Volume 10.9 FL (9.5-12.2); Monocytes # (A) 0.61 X 10*3/uL (0.20-1.00); Monocytes % (A) 7.4 %; NRBC Per 100 WBC 0 X 10*3/uL (0.00-0.01); Neutrophils # (A) 6.89 X 10*3/uL (1.80-7.70); Neutrophils % (A) 84.2 %; Platelet Count 162 X 10*3/uL (140-440); RBC 3.38 X 10*6/uL (4.10-5.20); RDW 14.3 % (11.5-14.5); WBC 8.19 X 10*3/uL (4.50-10.00)
[2024-04-17 08:51] LABS: ALT 34 U/L (8-44); AST 45 U/L (13-35); Albumin 3.6 g/dL (3.8-4.9); Alkaline Phosphatase 36 U/L (41-126); BUN/Creat Ratio 24.11 Ratio (12.00-20.00); Blood Urea Nitrogen 21.7 mg/dL (9.0-27.0); Calcium 8.4 mg/dL (8.7-10.3); Chloride 103 mmol/L (96-109); Globulin 1.8 g/dL (1.6-3.3); Glucose 146 mg/dL (70-110); Potassium 4.9 mmol/L (3.5-5.5); Sodium 137 mmol/L (135-145); Total Bilirubin 0.3 mg/dL (0.3-1.2); Total Protein 5.4 g/dL (6.2-8.2)
--- NOTE | 2024-04-17 09:34 | XR ---
EXAMINATION TYPE: XR abdomen 2V DATE OF EXAM: 04/17/2024 9:28 AM CLINICAL INDICATION:Female, 78 years old with history of abdominal distention; [facility] COMPARISON: None. TECHNIQUE: Two views of the abdomen were obtained. FINDINGS: The bowel gas pattern is nonspecific without dilated loops of small or large bowel. There i s no evidence for organomegaly or pneumoperitoneum. The osseous structures are intact. No abnormal calcifications are present. Fecal material and gas are demonstrated throughout the colon and rectum. Right lateral approach tubing noted. Nasogastric tuber in high position with side-port above the sherwin phragm. Multilevel degeneration changes of the spine. Fixation hardware throughout the spine appears intact. Surgical clips in the right upper quadrant and felipa present. IMPRESSION: 1. Nonspecific bowel gas pattern without radiographic evidence for acute process. 2. Nasogastric tube is below the diaphragm, advancement of 10.5 cm for optimal placement. 3. Fixation hardware intact.
[2024-04-17] MEDS: ASCORBIC ACID 500 MG TAB PO SCH (10:14)
[2024-04-17] MEDS: polyethylene glycoL 3350 17 GM POWD.PACK PO SCH (10:14)
[2024-04-17 11:01] LABS: Basophils % (A) 0 %; Eosinophils % (A) 0 %; HCT 34.7 % (34.0-46.0); HGB 10.9 gm/dL (11.4-16.0); Lymphocytes # (A) 0.4 k/uL (1.0-4.8); Lymphocytes % (A) 5 %; MCH 31.5 pg (25.0-35.0); MCHC 31.5 g/dL (31.0-37.0); MCV 99.9 fL (80.0-100.0); Mean Platelet Volume 8.8; Monocytes # (A) 0.2 k/uL (0-1.0); Monocytes % (A) 3 %; Neutrophils # (A) 8.1 k/uL (1.3-7.7); Neutrophils % (A) 92 %; Platelet Count 154 k/uL (150-450); RBC 3.47 m/uL (3.80-5.40); RDW 14.1 % (11.5-15.5); WBC 8.8 k/uL (3.8-10.6)
[2024-04-17 11:20] LABS: ALT 30 U/L (4-34); AST 69 U/L (14-36); African American GFR (CKD) 70 (>60 ml/min/1.73 sqM); Albumin 3.4 g/dL (3.5-5.0); Albumin/Globulin Ratio 1.5; Alkaline Phosphatase 43 U/L (38-126); Anion Gap 9 mmol/L; Blood Urea Nitrogen 25 mg/dL (7-17); Calcium 8.4 mg/dL (8.4-10.2); Carbon Dioxide 21 mmol/L (22-30); Chloride 108 mmol/L (98-107); Globulin 2.2 g/dL; Glucose 156 mg/dL (74-99); Non-African American GFR(CKD) 60 (>60 ml/min/1.73 sqM); Potassium 4.5 mmol/L (3.5-5.1); Sodium 138 mmol/L (137-145); Total Bilirubin 0.7 mg/dL (0.2-1.3); Total Protein 5.6 g/dL (6.3-8.2)
--- NOTE | 2024-04-17 11:46 | P.CONS ---
History of Present Illness - Reason for Consult Consult date: 04/17/24 Medical management - History of Present Illness This is a 78-year-old female patient of Dr. Watkins who presented for an anahy ctiveL2 pelvis decompression and fusion for lumbar stenosis with Dr. Madrigal on 04/16/2024.Patient has past medical history of hyperlipidemia, hypertension, thyroid disorder, thyroid cancer, DVT in 1976 chronic back pain.Postoperatively patient was noted to have abdominal distention. NG tube was placed and surgical service is consulted. According to patient she's had this issue for quite some time and has followed with GI services outpatient. At this time patient is currently sitting up in chair. Patient reports some pain to back. Patient denies any chest pain or shortness breath. Patient denies nausea and diarrhea. Patient deniesAny urinary burning or frequency Review of Systems Please refer to HPI otherwise unremarkable Past Medical History Past Medical History: Cancer, Deep Vein Thrombosis (DVT), Hyperlipidemia, Hypertension, Osteoarthritis (OA), Thyroid Disorder Additional Past Medical History / Comment(s): VERTIGO, thyroid ca 2009, DVT after 1976; chronic back pain. History of Any Multi-Drug Resistant Organisms: ESBL Year Discovered:: 06/06/23 MDRO Source:: Urine Past Surgical History: Bladder Surgery, Cholecystectomy, Hernia Repair, Hysterectomy, Joint Replacement, Orthopedic Surgery, Tonsillectomy, Tubal Ligation Additional Past Surgical History / Comment(s): THYROIDECTOMY. RT ROTATOR CUFF SX, TOTAL RT HIP, Total Lt hip, precancer removed off finger. Past Anesthesia/Blood Transfusion Reactions: Postoperative Nausea & Vomiting (PONV) Additional Past Anesthesia/Blood Transfusion Reaction / Comm: NO HX BLOOD TRANSFUSION, PONV after one surgery-not sure which one. Smoking Status: Former smoker - Past Family History Daughter(s) Family Medical History: Cancer Additional Family Medical History / Comment(s): BREAST CANCER, AT AGE 37 YR. Father Family Medical History: Diabetes Mellitus Additional Family Medical History / Comment(s): AICD Mother Family Medical History: Hyperlipidemia, Hypertension Additional Family Medical History / Comment(s): GLAUCOMA,MAC DEGENERATION, BOWEL RESECTION/COLOSTOMY D/T OBSTRUCTION Medications and Allergies Home Medications Medication Instructions Recorded Confirmed Type Cholecalciferol [Vitamin D3 (25 1,000 unit PO DAILY 11/13/15 04/16/24 History Mcg = 1000 Iu)] Levothyroxine Sodium [Synthroid] 125 mcg PO HS 11/13/15 04/16/24 History Lisinopril/Hydrochlorothiazide 1 tab PO HS 11/13/15 04/16/24 History [Lisinopril-Hctz 20-25 mg Tab] Lovastatin 40 mg PO HS 11/13/15 04/16/24 History Aspirin [Adult Low Dose Aspirin EC] 81 mg PO DAILY 03/10/22 04/16/24 History Cinnamon Bark [Cinnamon] 1,200 mg PO DAILY 03/10/22 04/16/24 History Lutein 40 mg PO DAILY 03/10/22 04/16/24 History Tart [place] 1 tab PO DAILY 03/10/22 04/16/24 History Zinc 50 mg PO DAILY 03/10/22 04/16/24 History Ascorbic Acid [Vitamin C] 1,000 mg PO DAILY 04/11/24 04/16/24 History Biotin [Fekk-Cfvt-Mkxzf] 10,000 mcg PO DAILY 04/11/24 04/16/24 History Calcium Carbonate 500 mg PO DAILY 04/11/24 04/16/24 History Gabapentin [Neurontin] 300 mg PO TID 04/11/24 04/16/24 History Joint Advanced Health Complex 1 dose PO DAILY 04/11/24 04/16/24 History Multivitamins, Thera [Multivitamin 1 tab PO DAILY 04/11/24 04/16/24 History (formulary)] Ubidecarenone [Co Q-10] 200 mg PO DAILY 04/11/24 04/16/24 History Allergies Allergy/AdvReac Type Severity Reaction Status Date / Time amoxicillin [From Augmentin] AdvReac Nausea & Verified 04/16/24 06:38 Vomiting clavulanic acid AdvReac Nausea & Verified 04/16/24 06:38 [From Augmentin] Vomiting morphine AdvReac Nausea & Verified 04/16/24 06:37 Vomiting tramadol AdvReac Nausea & Verified 04/16/24 06:37 Vomiting Physical Exam Vitals: Vital Signs Temp Pulse Resp BP BP Pulse Ox 04/17/24 08:30 106/65 04/17/24 08:00 98.9 F 68 18 109/67 94 L 04/17/24 02:00 97.9 F 68 20 122/70 97 04/16/24 20:00 97.6 F 63 22 121/70 94 L 04/16/24 17:06 68 114/67 97 04/16/24 16:22 95 04/16/24 16:21 63 118/67 94 L 04/16/24 16:06 68 138/67 95 04/16/24 15:51 61 122/66 95 04/16/24 15:36 61 115/66 92 L 04/16/24 15:21 97.4 F L 60 16 113/64 95 04/16/24 14:30 58 L 14 115/48 110/56 97 04/16/24 14:15 57 L 14 113/47 105/51 97 04/16/24 14:00 63 14 128/56 112/54 96 04/16/24 13:45 64 14 115/48 113/54 95 04/16/24 13:30 65 14 118/45 103/52 95 04/16/24 13:12 97.2 F L 74 14 104/41 103/52 94 L Intake and Output 04/16/24 04/17/24 04/17/24 22:59 06:59 14:59 Intake Total 310 Output Total 645 485 Balance -645 -485 310 Intake: Blood Product 310 Rc As-1 Unit 310 [id number] Output: Gastric Drainage 100 Drainage 170 110 Back 170 110 Urine 375 375 Other: Voiding Method Indwelling Catheter Weight 90 kg Head normocephalic Neck supple Lungs clear to auscultation bilaterally no wheezing or crackles Heart regular rate and rhythm S1-S2, no rub or gallop Abdomen is soft Distended Extremities no edema Neuro alert and orientated to 3 Results CBC & Chem 7: 04/17/24 10:42 04/17/24 10:42 Labs: Abnormal Lab Results - Last 24 Hours (Table) 04/10/24 04/16/24 04/16/24 Range/Units 16:36 12:21 12:30 RBC 3.22 L (3.80-5.40) m/uL Hgb 10.4 L (11.4-16.0) gm/dL Hct 31.2 L (34.0-46.0) % Immature Gran # (0.00-0.04) X 10*3/uL Neutrophils # (1.3-7.7) k/uL Lymphocytes # (0.90-5.00) X 10*3/uL Eosinophils # (0.04-0.35) X 10*3/uL ABG pO2 226 H (83-108) mmHg ABG O2 Saturation 99.1 H (94-97) % ABG Hematocrit 28 L (34.0-46.0) % ABG Ionized Calcium 4.1 L (4.5-5.3) mg/dL ABG Glucose 115 H (75-99) mg/dL ABG Lactic Acid 3.9 H* (0.5-1.6) mmol/L Hemoglobin 9.1 L (11.4-16.0) gm/dL Chloride (98-107) mmol/L Carbon Dioxide (22-30) mmol/L BUN (7-17) mg/dL BUN/Creatinine Ratio (12.00-20.00) Ratio Glucose (70-110) mg/dL Calcium (8.7-10.3) mg/dL AST (13-35) U/L Alkaline Phosphatase (41-126) U/L Total Protein (6.2-8.2) g/dL Albumin (3.8-4.9) g/dL Arterial Blood Glucose 115 H (75-99) mg/dL Crossmatch See Detail 04/17/24 04/17/24 04/17/24 Range/Units 04:20 04:20 10:42 RBC 3.38 L 3.47 L (3.80-5.40) m/uL Hgb 10.7 L 10.9 L (11.4-16.0) gm/dL Hct 32.7 L (34.0-46.0) % Immature Gran # 0.05 H (0.00-0.04) X 10*3/uL Neutrophils # 8.1 H (1.3-7.7) k/uL Lymphocytes # 0.63 L 0.4 L (0.90-5.00) X 10*3/uL Eosinophils # 0 L (0.04-0.35) X 10*3/uL ABG pO2 (83-108) mmHg ABG O2 Saturation (94-97) % ABG Hematocrit (34.0-46.0) % ABG Ionized Calcium (4.5-5.3) mg/dL ABG Glucose (75-99) mg/dL ABG Lactic Acid (0.5-1.6) mmol/L Hemoglobin (11.4-16.0) gm/dL Chloride (98-107) mmol/L Carbon Dioxide (22-30) mmol/L BUN (7-17) mg/dL BUN/Creatinine Ratio 24.11 H (12.00-20.00) Ratio Glucose 146 H (70-110) mg/dL Calcium 8.4 L (8.7-10.3) mg/dL AST 45 H (13-35) U/L Alkaline Phosphatase 36 L (41-126) U/L Total Protein 5.4 L (6.2-8.2) g/dL Albumin 3.6 L (3.8-4.9) g/dL Arterial Blood Glucose (75-99) mg/dL Crossmatch 04/17/24 Range/Units 10:42 RBC (3.80-5.40) m/uL Hgb (11.4-16.0) gm/dL Hct (34.0-46.0) % Immature Gran # (0.00-0.04) X 10*3/uL Neutrophils # (1.3-7.7) k/uL Lymphocytes # (0.90-5.00) X 10*3/uL Eosinophils # (0.04-0.35) X 10*3/uL ABG pO2 (83-108) mmHg ABG O2 Saturation (94-97) % ABG Hematocrit (34.0-46.0) % ABG Ionized Calcium (4.5-5.3) mg/dL ABG Glucose (75-99) mg/dL ABG Lactic Acid (0.5-1.6) mmol/L Hemoglobin (11.4-16.0) gm/dL Chloride 108 H (98-107) mmol/L Carbon Dioxide 21 L (22-30) mmol/L BUN 25 H (7-17) mg/dL BUN/Creatinine Ratio (12.00-20.00) Ratio Glucose 156 H (70-110) mg/dL Calcium (8.7-10.3) mg/dL AST 69 H (13-35) U/L Alkaline Phosphatase (41-126) U/L Total Protein 5.6 L (6.2-8.2) g/dL Albumin 3.4 L (3.8-4.9) g/dL Arterial Blood Glucose (75-99) mg/dL Crossmatch Assessment and Plan Assessment: 1. Status post L2 to pelvis decompressionWith Dr. Madrigal on 04/16/2024 2. Postop operative abdominal distention and pain. NG tube is place surgical service is consulted 3. History of thyroid cancer 4. History of hyperlipidemia 5. History of essential hypertension 6. History of osteoporosis Thank you for this consultation we'll continue to follow patient closely throughout stay DVT prophylaxis SCDs Repeat labs ordered for a.m.
--- NOTE | 2024-04-17 14:02 | P.PN ---
Subjective Progress Note Date: 04/17/24 CHIEF COMPLAINT: Elective back surgery HISTORY OF PRESENT ILLNESS: Surgical service following in regards to patient's abdominal distention. She is sitting at bedside chair. She denies any flatus. She has NG tube in place with 100 mL output. She did have nausea earlier. Abdominal x-ray reports fecal material and gas are demonstrated throughout the colon and rectum. Afebrile. WBC 8.8 Hgb 10.9 platelets 154 sodium 138 potassium 4.5 creatinine 0.93 PHYSICAL EXAM: VITAL SIGNS: Reviewed. GENERAL: Well-developed in no acute distress. ABDOMEN: distended. Nontender NEUROLOGIC: Alert and oriented. Cranial nerves II through XII grossly intact. ASSESSMENT: 1. Abdominal distention 2. Lumbar stenosis status post decompression and fusion with orthopedic service 3. Patient with history of abdominal distention and constipation at home PLAN: -Discontinue NG tube -Advance diet to full liquids -Encouraged patient to increase activity level -Continue MiraLAX and Senokot Physician Corporate Accounting Manager note has been reviewed by physician. Signing provider agrees with the documented findings, assessment, and plan of care. I have personally seen and examined the patient, reviewed the WOOD GETTER /PAs history, exam and MDM and agree with the assessment and plan as written. Based on total visit time, I have performed more than 50% of the visit. Patient doing well today. No nausea or vomiting. Denies abdominal pain. Remove nasogastric tube. Advance diet. Will follow. Objective - Vital Signs Vital signs: Vital Signs Temp 98.9 F 04/17/24 08:00 Pulse 68 04/17/24 08:00 Resp 18 04/17/24 08:00 BP 106/65 04/17/24 08:30 Pulse Ox 94 L 04/17/24 08:00 FiO2 Intake & Output 04/16/24 04/17/24 04/17/24 18:59 06:59 18:59 Intake Total 3152 310 Output Total 2130 575 160 Balance 1022 -575 150 Weight 90 kg Intake: IV 3152 Blood Product 0 310 Rc As-1 Unit 0 310 [id number] Output: Gastric Drainage 100 Drainage 80 200 160 Back 80 200 160 Urine 1200 375 Estimated Blood Loss 750 Other: Voiding Method Indwelling Catheter - Labs CBC & Chem 7: 04/17/24 10:42 04/17/24 10:42 Labs: Abnormal Lab Results - Last 24 Hours (Table) 04/10/24 04/16/24 04/17/24 Range/Units 16:36 12:30 04:20 RBC 3.38 L (4.10-5.20) X 10*6/uL Hgb 10.7 L (12.0-15.0) g/dL Hct 32.7 L (37.2-46.3) % Immature Gran # 0.05 H (0.00-0.04) X 10*3/uL Neutrophils # (1.3-7.7) k/uL Lymphocytes # 0.63 L (0.90-5.00) X 10*3/uL Eosinophils # 0 L (0.04-0.35) X 10*3/uL ABG pO2 226 H (83-108) mmHg ABG O2 Saturation 99.1 H (94-97) % ABG Hematocrit 28 L (34.0-46.0) % ABG Ionized Calcium 4.1 L (4.5-5.3) mg/dL ABG Glucose 115 H (75-99) mg/dL ABG Lactic Acid 3.9 H* (0.5-1.6) mmol/L Hemoglobin 9.1 L (11.4-16.0) gm/dL Chloride (98-107) mmol/L Carbon Dioxide (22-30) mmol/L BUN (7-17) mg/dL BUN/Creatinine Ratio (12.00-20.00) Ratio Glucose (70-110) mg/dL Calcium (8.7-10.3) mg/dL AST (13-35) U/L Alkaline Phosphatase (41-126) U/L Total Protein (6.2-8.2) g/dL Albumin (3.8-4.9) g/dL Arterial Blood Glucose 115 H (75-99) mg/dL Crossmatch See Detail 04/17/24 04/17/24 04/17/24 Range/Units 04:20 10:42 10:42 RBC 3.47 L (4.10-5.20) X 10*6/uL Hgb 10.9 L (12.0-15.0) g/dL Hct (37.2-46.3) % Immature Gran # (0.00-0.04) X 10*3/uL Neutrophils # 8.1 H (1.3-7.7) k/uL Lymphocytes # 0.4 L (0.90-5.00) X 10*3/uL Eosinophils # (0.04-0.35) X 10*3/uL ABG pO2 (83-108) mmHg ABG O2 Saturation (94-97) % ABG Hematocrit (34.0-46.0) % ABG Ionized Calcium (4.5-5.3) mg/dL ABG Glucose (75-99) mg/dL ABG Lactic Acid (0.5-1.6) mmol/L Hemoglobin (11.4-16.0) gm/dL Chloride 108 H (98-107) mmol/L Carbon Dioxide 21 L (22-30) mmol/L BUN 25 H (7-17) mg/dL BUN/Creatinine Ratio 24.11 H (12.00-20.00) Ratio Glucose 146 H 156 H (70-110) mg/dL Calcium 8.4 L (8.7-10.3) mg/dL AST 45 H 69 H (13-35) U/L Alkaline Phosphatase 36 L (41-126) U/L Total Protein 5.4 L 5.6 L (6.2-8.2) g/dL Albumin 3.6 L 3.4 L (3.8-4.9) g/dL Arterial Blood Glucose (75-99) mg/dL Crossmatch
--- NOTE | 2024-04-18 07:24 | P.PN ---
Subjective Progress Note Date: 04/18/24 Principal diagnosis: L2-S1 SPONDYLOSIS WITH STENOSIS; NEUROGENIC CLAUDICATION Pt s/e this AM. She is doing OK. She states her pain is better controlled. She has been up and walking the halls, hammond still in place and will need to be DC today. She still has drain as well which was emptied this morning she states. She also had a bout of bowel incontinence yesterday. She states she was sound asleep and suddenly woke up and had to go to the bathroom but could not get up and it just came out and she could not stop it in time. She stated she knew it was happening and could feel it but "it would not stop". She has been to the bathroom since then as she has felt the urge to go, but no Bm since. She has passed gas and been able to know when that is coming as she wanted to avoid any situation like this again. Otherwise she states she is doing well. No f/c/sob/cp/n/v/blurred/double vision. no perineal numbness/tingling. Objective - Vital Signs Vital signs: Vital Signs Temp 97.9 F 04/18/24 02:34 Pulse 66 04/18/24 02:34 Resp 18 04/18/24 02:34 BP 128/67 04/18/24 02:34 Pulse Ox 96 04/18/24 02:34 FiO2 Intake & Output 04/17/24 04/18/24 04/18/24 18:59 06:59 18:59 Intake Total 310 500 Output Total 160 1000 Balance 150 -500 Intake: Oral 500 Blood Product 310 Rc As-1 Unit 310 [id number] Output: Drainage 160 200 Back 160 200 Urine 800 Other: Voiding Method Indwelling Catheter Indwelling Catheter - Exam Physical Exam: EXAM REPEATED TODAY, NO CHANGES. -Patient is alert and oriented 3 appears well-nourished well-hydrated is in no acute distress. They do not appear septic. -There is TTP lumbar spine around incision no fluctuance [-Incision is CDI, no EEE, no drainage] -Upper extremities show [5] out of 5 strength in all major muscle groups. -Lower extremities with 4+ out of 5 strength in all major muscle groups normal deconditioning postsurgical -There is [FROM] that is [painless] of the b/l UE and LE in all major joints. Negative straight leg raise -They are intact to light touch sensation in C5 to T1 and L2 to S1 nerve distribution. She has normal numbness in bilateral lower extremities which has not resolved yet which she states feels somewhat better -DTR [2]/4 all upper and lower extremities -Patient has palpable distal pulses all 4 ext -Compartments are soft and compressible. -Patient shows a negative Yung's [-Neg Hoffmans b/l] [-Neg Clonus b/l] [-Neg babinski b/l] Cranial nerves II through XII are grossly intact. Drain output 200 mL SINCE YESTERDAY - Labs CBC & Chem 7: 04/17/24 10:42 04/17/24 10:42 Labs: Abnormal Lab Results - Last 24 Hours (Table) 04/10/24 04/17/24 04/17/24 Range/Units 16:36 04:20 04:20 RBC 3.38 L (4.10-5.20) X 10*6/uL Hgb 10.7 L (12.0-15.0) g/dL Hct 32.7 L (37.2-46.3) % Immature Gran # 0.05 H (0.00-0.04) X 10*3/uL Neutrophils # (1.3-7.7) k/uL Lymphocytes # 0.63 L (0.90-5.00) X 10*3/uL Eosinophils # 0 L (0.04-0.35) X 10*3/uL Chloride (98-107) mmol/L Carbon Dioxide (22-30) mmol/L BUN (7-17) mg/dL BUN/Creatinine Ratio 24.11 H (12.00-20.00) Ratio Glucose 146 H (70-110) mg/dL Calcium 8.4 L (8.7-10.3) mg/dL AST 45 H (13-35) U/L Alkaline Phosphatase 36 L (41-126) U/L Total Protein 5.4 L (6.2-8.2) g/dL Albumin 3.6 L (3.8-4.9) g/dL Crossmatch See Detail 04/17/24 04/17/24 Range/Units 10:42 10:42 RBC 3.47 L (4.10-5.20) X 10*6/uL Hgb 10.9 L (12.0-15.0) g/dL Hct (37.2-46.3) % Immature Gran # (0.00-0.04) X 10*3/uL Neutrophils # 8.1 H (1.3-7.7) k/uL Lymphocytes # 0.4 L (0.90-5.00) X 10*3/uL Eosinophils # (0.04-0.35) X 10*3/uL Chloride 108 H (98-107) mmol/L Carbon Dioxide 21 L (22-30) mmol/L BUN 25 H (7-17) mg/dL BUN/Creatinine Ratio (12.00-20.00) Ratio Glucose 156 H (70-110) mg/dL Calcium (8.7-10.3) mg/dL AST 69 H (13-35) U/L Alkaline Phosphatase (41-126) U/L Total Protein 5.6 L (6.2-8.2) g/dL Albumin 3.4 L (3.8-4.9) g/dL Crossmatch Assessment and Plan (1) Lumbar stenosis with neurogenic claudication Current Visit: Yes Status: Acute Priority: Medium Code(s): M48.062 - SPINAL STENOSIS, LUMBAR REGION WITH NEUROGENIC CLAUDICATION SNOMED Code(s): 08208297 (2) Fusion of lumbar spine Current Visit: Yes Status: Acute Code(s): M43.26 - FUSION OF SPINE, LUMBAR REGION SNOMED Code(s): 528535941 Plan: -Appreciate reimbursement consultant and team management. -Activity: Ambulate QID, OOB all meals, up and about, limit lifting bending twisting to less than 5 lbs. Use walker or cane if needed for stability. -Daily PT/OT, increase ambulation strength and balance. -[Brace when up and about, not needed in bed or chair] -Pain control: [Adequate at this time] -Meds: [reviewed] -GI ppx: senna, Miralax -DC HAMMOND TODAY -DVT PPX: HEPARIN -Hygiene: Shower today. Maintain dressing clean and dry. Meticulous cleaning after BMs away from incision site -Drains: [Maintain for now. Record output] -Encourage IS 10x/hr -Dispo: GOAL IS FOR HOME TOMORROW WITH HOME CARE
[2024-04-18 08:47] LABS: Basophils # (A) 0.02 X 10*3/uL (0.00-0.10); Basophils % (A) 0.3 %; Eosinophils # (A) 0.05 X 10*3/uL (0.04-0.35); Eosinophils % (A) 0.8 %; HCT 28.2 % (37.2-46.3); Lymphocytes # (A) 1.02 X 10*3/uL (0.90-5.00); Lymphocytes % (A) 16.7 %; MCH 32.1 pg (27.0-32.0); MCHC 31.9 g/dL (32.0-37.0); MCV 100.7 FL (80.0-97.0); Mean Platelet Volume 11.1 FL (9.5-12.2); Monocytes % (A) 9.8 %; NRBC Per 100 WBC 0 X 10*3/uL (0.00-0.01); Neutrophils % (A) 72.1 %; Platelet Count 120 X 10*3/uL (140-440); RDW 14.2 % (11.5-14.5); WBC 6.11 X 10*3/uL (4.50-10.00)
[2024-04-18] MEDS: ASPIRIN 81 MG PO SCH (08:54)
[2024-04-18 09:59] LABS: ALT 27 U/L (8-44); AST 79 U/L (13-35); Albumin 3.2 g/dL (3.8-4.9); Albumin/Globulin Ratio 1.88 Ratio (1.60-3.17); Alkaline Phosphatase 33 U/L (41-126); BUN/Creat Ratio 29.78 Ratio (12.00-20.00); Blood Urea Nitrogen 26.8 mg/dL (9.0-27.0); Carbon Dioxide 22.4 mmol/L (21.6-31.8); Chloride 107 mmol/L (96-109); Globulin 1.7 g/dL (1.6-3.3); Glucose 103 mg/dL (70-110); Potassium 4.8 mmol/L (3.5-5.5); Sodium 139 mmol/L (135-145); Total Bilirubin 0.2 mg/dL (0.3-1.2); Total Protein 4.9 g/dL (6.2-8.2)
--- NOTE | 2024-04-18 13:08 | P.PN ---
Subjective Progress Note Date: 04/18/24 CHIEF COMPLAINT: Elective back surgery HISTORY OF PRESENT ILLNESS: Surgical service following in regards to patient's abdominal distention. She is sitting at bedside chair. NG tube was removed yesterday. She denies any nausea or vomiting. She denies any abdominal pain. She is having flatus. She did have stool incontinence last night. She feels the distention is slightly less. Patient refused the stool softeners this morning. She has ambulated. Afebrile. WBC 6.11 Hgb 9.0 platelets 120 PHYSICAL EXAM: VITAL SIGNS: Reviewed. GENERAL: Well-developed in no acute distress. ABDOMEN: Abdominal distention slightly less. Abdomen is softer. Nontender NEUROLOGIC: Alert and oriented. Cranial nerves II through XII grossly intact. ASSESSMENT: 1. Abdominal distention 2. Lumbar stenosis status post decompression and fusion with orthopedic service 3. Patient with history of abdominal distention and constipation at home PLAN: -Continue regular diet -Patient wanting to hold off on stool softeners today due to stool incontinence yesterday. Encourage patient to resume bowel regimen tomorrow -Continue to ambulate Physician Vocational Director note has been reviewed by physician. Signing provider agrees with the documented findings, assessment, and plan of care. I have personally seen and examined the patient, reviewed the HUMAN RESOURCES CONSULTANT /PAs history, exam and MDM and agree with the assessment and plan as written. Based on total visit time, I have performed more than 50% of the visit. As above: Patient doing well today. Tolerating diet. Had good stool function yesterday. Will sign off. Please reconsult if needed. Objective - Vital Signs Vital signs: Vital Signs Temp 98.4 F 04/18/24 08:00 Pulse 63 04/18/24 08:00 Resp 17 04/18/24 08:00 BP 114/66 04/18/24 08:00 Pulse Ox 98 04/18/24 08:00 FiO2 Intake & Output 04/17/24 04/18/24 04/18/24 18:59 06:59 18:59 Intake Total 310 500 296 Output Total 160 1000 450 Balance 150 -500 -154 Intake: Oral 500 296 Blood Product 310 Rc As-1 Unit 310 [id number] Output: Drainage 160 200 100 Back 160 200 100 Urine 800 350 Other: Voiding Method Indwelling Catheter Indwelling Catheter Indwelling Catheter - Labs CBC & Chem 7: 04/18/24 05:36 04/18/24 05:36 Labs: Abnormal Lab Results - Last 24 Hours (Table) 04/10/24 04/18/24 04/18/24 Range/Units 16:36 05:36 05:36 RBC 2.80 L (4.10-5.20) X 10*6/uL Hgb 9.0 L (12.0-15.0) g/dL Hct 28.2 L (37.2-46.3) % MCV 100.7 H (80.0-97.0) FL MCH 32.1 H (27.0-32.0) pg MCHC 31.9 L (32.0-37.0) g/dL Plt Count 120 L (140-440) X 10*3/uL BUN/Creatinine Ratio 29.78 H (12.00-20.00) Ratio Calcium 8.0 L (8.7-10.3) mg/dL Total Bilirubin 0.2 L (0.3-1.2) mg/dL AST 79 H (13-35) U/L Alkaline Phosphatase 33 L (41-126) U/L Total Protein 4.9 L (6.2-8.2) g/dL Albumin 3.2 L (3.8-4.9) g/dL Crossmatch See Detail
--- NOTE | 2024-04-18 17:38 | P.PN ---
Subjective Progress Note Date: 04/18/24 This is a 78-year-old female patient of Dr. Watkins who presented for an electiveL2 pelvis decompression and fusion for lumbar stenosis with Dr. Madrigal on 04/16/2024.Patient has past medical history of hyperlipidemia, hypertension, thyroid disorder, thyroid cancer, DVT in 1976 chronic back pain.Postoperatively patient was noted to have abdominal distention. NG tube was placed and surgical service is consulted. According to patient she's had this issue for quite some time and has followed with GI services outpatient. At this time patient is currently sitting up in chair. Patient reports some pain to back. Patient denies any chest pain or shortness breath. Patient denies nausea and diarrhea. Patient deniesAny urinary burning or frequency On 04/18/2024 patient was seen and examined on the medical floor she is alert and oriented x 3 in no apparent distress she is still complaining of neck pain and low back pain otherwise she denies any complaints there is no fever or chills no headache or dizziness no chest pain no shortness of breath no cough no nausea or vomiting no abdominal pain no diarrhea no urinary symptoms Objective - Vital Signs Vital signs: Vital Signs Temp 98.4 F 04/18/24 08:00 Pulse 63 04/18/24 08:00 Resp 17 04/18/24 08:00 BP 114/66 04/18/24 08:00 Pulse Ox 98 04/18/24 08:00 FiO2 Intake & Output 04/17/24 04/18/24 04/18/24 18:59 06:59 18:59 Intake Total 310 500 296 Output Total 160 1000 Balance 150 -500 296 Intake: Oral 500 296 Blood Product 310 Rc As-1 Unit 310 [id number] Output: Drainage 160 200 Back 160 200 Urine 800 Other: Voiding Method Indwelling Catheter Indwelling Catheter - Exam In general patient is alert and oriented x 3 in no distress HEENT head normocephalic and atraumatic Neck is supple no JVD no goiter no lymphadenopathy no carotid bruit Chest examination is clear to auscultation no crackles no wheezing Cardiac exam reveals regular heart sounds S1 and S2 no gallops no murmurs Abdomen is soft nontender no organomegaly with normal bowel sounds Extremity exam reveals no edema no cyanosis or clubbing Neurological examination reveals no gross focal deficits - Labs CBC & Chem 7: 04/18/24 05:36 04/18/24 05:36 Labs: Abnormal Lab Results - Last 24 Hours (Table) 04/10/24 04/17/24 04/17/24 Range/Units 16:36 10:42 10:42 RBC 3.47 L (3.80-5.40) m/uL Hgb 10.9 L (11.4-16.0) gm/dL Hct (37.2-46.3) % MCV (80.0-97.0) FL MCH (27.0-32.0) pg MCHC (32.0-37.0) g/dL Plt Count (140-440) X 10*3/uL Neutrophils # 8.1 H (1.3-7.7) k/uL Lymphocytes # 0.4 L (1.0-4.8) k/uL Chloride 108 H (98-107) mmol/L Carbon Dioxide 21 L (22-30) mmol/L BUN 25 H (7-17) mg/dL BUN/Creatinine Ratio (12.00-20.00) Ratio Glucose 156 H (74-99) mg/dL Calcium (8.7-10.3) mg/dL Total Bilirubin (0.3-1.2) mg/dL AST 69 H (14-36) U/L Alkaline Phosphatase (41-126) U/L Total Protein 5.6 L (6.3-8.2) g/dL Albumin 3.4 L (3.5-5.0) g/dL Crossmatch See Detail 04/18/24 04/18/24 Range/Units 05:36 05:36 RBC 2.80 L (3.80-5.40) m/uL Hgb 9.0 L (11.4-16.0) gm/dL Hct 28.2 L (37.2-46.3) % MCV 100.7 H (80.0-97.0) FL MCH 32.1 H (27.0-32.0) pg MCHC 31.9 L (32.0-37.0) g/dL Plt Count 120 L (140-440) X 10*3/uL Neutrophils # (1.3-7.7) k/uL Lymphocytes # (1.0-4.8) k/uL Chloride (98-107) mmol/L Carbon Dioxide (22-30) mmol/L BUN (7-17) mg/dL BUN/Creatinine Ratio 29.78 H (12.00-20.00) Ratio Glucose (74-99) mg/dL Calcium 8.0 L (8.7-10.3) mg/dL Total Bilirubin 0.2 L (0.3-1.2) mg/dL AST 79 H (14-36) U/L Alkaline Phosphatase 33 L (41-126) U/L Total Protein 4.9 L (6.3-8.2) g/dL Albumin 3.2 L (3.5-5.0) g/dL Crossmatch Assessment and Plan Assessment: 1. Status post L2 to pelvis decompressionWith Dr. Madrigal on 04/16/2024 2. Postop operative abdominal distention and pain. NG tube is place surgical service is consulted 3. History of thyroid cancer 4. History of hyperlipidemia 5. History of essential hypertension 6. History of osteoporosis Thank you for this consultation we'll continue to follow patient closely throughout stay DVT prophylaxis SCDs Repeat labs ordered for a.m.
--- NOTE | 2024-04-19 10:34 | P.DS ---
Providers Date of admission: 04/16/24 05:42 Expected date of discharge: 04/19/24 Attending physician: Roverto Madrigal DO Consults: 04/16/24 13:10 Consult Physician Routine Consulting Provider: Micheline Kelly Consult Reason/Comments: medical management s/p L2-pelvis decompr fusion Do you want consulting provider notified?: Yes Primary care physician: Linda Watkins Hospital Course: Date of admission: 04/16/2024 Date of discharge: 04/19/2024 Admission diagnosis: L2 to S1 spondylosis with stenosis and neurogenic claudication Discharge diagnosis: Same Attending physician: Dr. Madrigal Surgical procedures: L2 to pelvis decompression fusion Brief history: Patient is a 78 y/o female with a history of L2-S1 spondylosis with stenosis and neurogenic claudication. At this point patient has failed conservative treatment measures and has opted to proceed with a elective D6ckpoia decompression and fusion. Hospital course: Details of patient's surgery can be found in operative report. Patient tolerated the procedure well and was subsequently transported to orthopedic floor. Patient's orthopeidc and medical care was provided daily. Patient had daily laboratory tests performed for evaluation of overall blood counts. Patient had daily physical therapy to include strengthening range of motion as well as education with walker ambulation. Patient was treated with aspirin for their postoperative DVT prophylaxis during their inpatient stay. Patient was noted to have a relatively uneventful postoperative course. Patient reported satisfactory pain control with oral pain medications by postoperative day 3. Patient showed satisfactory progress with physical therapy. Patient moved steadily through the program and had no difficulty meeting the goals by postoperative day 3. Given patient's otherwise satisfactory course and having met physical therapy goals, plan is to discharge patient home with home care on postoperative day 3. Discharge condition/disposition: Patient will be discharged home with home care in stable condition. Discharge medications: Instructions are given on resumption of patient's normal daily medications per primary care recommendation, in addition patient will be prescribed OxyIR 10 mg every 6 hours; gabapentin; Flexeril; senna; Duricef. Spine Discharge and Recovery Instructions Date of Surgery: 04/16/2024 Diagnosis: L2 to S1 spondylosis with stenosis and neurogenic claudication Procedure: L2 to pelvis decompression fusion Medications: See medication list All medication refills should be obtained through your primary care doctor or your clinic spine surgeon. Please discuss prescription refills at your follow up appointment. Do not call the hospital for medication refills. Dressing: Leave your dressing in place for a total of 5 days post operatively. Then you may remove your dressing and leave open to air. Keep the area clean and if not able to keep area clean, then cover with sterile gauze and tape. Showering: You may shower 3 days after your procedure allowing soap and water to run over incision. Do not scrub. Do not soak. Blot dry. Follow up: Please confirm a follow up appointment with your surgeon 3 weeks post operatively. Please make an appointment to follow up with your PCP in 1-2 weeks after surgery for evaluation 3 phase, 3-week plan POST OP WEEKS 1-3 1. Lifting/carrying/pushing/pulling limited to less than 5 pounds. 2. Do not sit for longer than 15 minutes at one time. Get up and walk around. Prolonged sitting is NOT advised. If you lay down, see if you can tolerate laying down on you front (belly side) 3. Walk for periods of 15 minutes = 1 mile but no longer; do it multiple times times each day. 4. Ice your low back after activity. POST OP WEEKS 3-6 1. Lifting limited to less than 20 pounds. 2. Do not sit for longer than 30 minutes at a time. Frequently change positions. Use a sit-to stand workstation or take frequent breaks from sitting if you have returned to work. 3. Walk for 30 minutes each day. If possible, do these three or more times a day POST OP WEEKS 6+ At your 6-week appointment we will give you a physical therapy referral to focus on a core stabilization and strengthening program. You should also work on leg & buttock strengthening, hamstring & quadriceps stretching, and continue a low impact aerobic activity program such as swimming, walking, or riding a [employer] bicycle. During the initial 6 weeks after your surgery, you are at the highest risk of re-injuring your spine. You should generally avoid BLTs (bending, lifting and twisting combination motions) and follow the above guidelines to reduce the chance of reinjury. You can anticipate post op appointments in our office at approximately 3 weeks and 6 weeks after your surgery. INCISION CARE: If your incision is not draining you do NOT need to cover it with a dressing. Keep your incision clean, dry and intact. In most cases, we apply skin glue, felipa or sutures to the incision at the time of surgery. This will be like a crust or have the appearance of a scab and will fall off in time on its own. The stitches or felipa need to be removed at 3 weeks post op appointment. You may begin to shower 3 days after surgery (this allows the glue to bridges well). However, please avoid scrubbing the incision site or peeling off any of the skin glue. This will ensure optimal healing of your incision. Also, during this time avoid soaking the incision area in water - this includes swimming pools, hot tubs or baths. No ointments, lotions or oils on the incision until your surgeon allows. Leave felipa, sutures or glue in place. Neurological dysfunction that comes on suddenly can also be a sign of a stroke. Below some common symptoms of a stroke are listed: B - balance difficulty such as sudden onset walking or leaning to one side - NEW E - eye problem such as sudden double vision or trouble seeing on one side - NEW F - Facial weakness or numbness on one side - NEW A - Arm or leg weakness or numbness on one side - NEW S - Slurred speech or difficulty with word finding - NEW T - Time is BRAIN! Call 911 as soon as you recognize these symptoms Diet: Consume a regular diet rich in vegetables and lean protein such as chicken or fish. You should consume in a ratio of approximately 20% fats|40% carbohyd rates|40%protein. Vegetables, sweet potatoes, brown rice or quinoa are examples of good carbohydrates. Chips, white bread, cookies and sweets/sugar are examples of bad carbohydrates. Limit your bad carbs, go wild with good carbs. "Life's Simple 7" Guidelines as per [place] [employer] These will help you reclaim your life after surgery and ice cream freezer helper in your recovery, keeping in mind your restrictions. (1) Get Active. Physical activity can help people lose weight, control high blood pressure and cholesterol, feel emotionally better, and sleep better. (2) Control Cholesterol. Avoid a diet high in saturated fat, trans fat, & cholesterol. Limit whole milk & cream, ice cream, butter, egg yolks, processed meats (like sausage and hot dogs), and fatty meats. Choose healthy foods that are low in saturated fat, trans fat and cholesterol which include: Fruits and vegetables, fiber rich grain products (like whole grain pasta and brown rice), lean meat such as chicken, fish, nuts, seeds, and legumes. (3) Eat Better. Eat small portions. Shop at the grocery with a list and do not stray from it. Tips for a healthy diet include: Limit sodium intake to le ss than 1500mg daily, avoid prepackaged, processed, and fast foods, choose a diet rich in fruits, vegetables, and whole grain, high fiber foods, and limit saturated & cholesterol in your diet. (4) Manage Blood Pressure. If you have high blood pressure, you should have a cuff at home so that you can check your blood pressure regularly. Be sure you have a good cuff. An arm one is generally better than a wrist one. Bring the cuff to a doctor's appointment to validate that the measurements that your cuff are taking are accurate. Take your blood pressure twice daily when you are sitting down and relaxing. Record the numbers in a log and bring this log with you to your doctors' appointments. (5) Lose Weight if your BMI is above 25. A healthy BMI is between 19-25. To calculate Your BMI, you may use a Standard BMI Calculator on the NIH BMI website: <www.nhlbi.nih.gov/guidelines/obesity/BMI/bmicalc.htm>. Weigh oneself daily. If you are overweight, set a goal to lose weight. A pound a week loss if needed is a good target. (6) Reduce Blood Sugar. Limit foods and liquids with "added sugars." (Added sugars include sucrose, fructose, glucose, maltose, dextrose, high fructose corn syrup, corn syrup, concentrated fruit juice and honey). (7) Stop Smoking. If you smoke, quitting smoking is one of the best things that you can do for your health. Smoking increases your risk of heart attack, stroke, and peripheral vascular disease, which is a build-up of plaque in your arteries. Please discard all the cigarettes and lighters in your house. Have a plan for what you will do when you have the urge to smoke. Direct and second- hand smoke shortens your life as well as the lives of your family, friends and others around you. For your health and the health of those around you, please consider quitting! Proper Bending Body Mechanics: Maintain a wide stance with one foot slightly in front of the other. Keep your back straight. Bend utilizing the strength in your hips and knees. Do not bend at the waist. Maintain the lifted object at your waist-level close to your body. Avoid lifting weight that causes immediately pain or pain anywhere in the body afterwards. Smoking/Nicotine If there was ever one thing that you could do to increase your overall health, decrease your risk of cardiovascular problems by about 39% the second you make the choice, it is to STOP SMOKING. Your body's most instant gratification is the second you stop smoking. We have all heard the studies, read the articles but it is true, smoking is extremely bad for your overall health, and moreover it is detrimental to your bone health. Nicotine, IN ANY FORM, kills bone cells, prevents your body from healing fractur es, and significantly prolongs healing after surgery. In spine surgery specifically, it increases your risk of not healing your bones to create a fusion and increases your risk of having a revision surgery due to this up to 60%. I know it is hard. I know it feels impossible. But there are ways. Take control of your life. We are here to help you through it. And when you are ready, ask us and we can direct you to help if you desire. Use the START Plan to Quit Smoking (please visit the Helpguide.org website listed below for more information): S = Set a quit date. Choose a date within the next 2 weeks, so you have enough time to prepare without losing your motivation to quit. If you mainly smoke at work, quit on the weekend, so you have a few days to adjust to the change. T = Tell family, friends, and co-workers that you plan to quit. Let your friends and family in on your plan to quit smoking and tell them you need their support and encouragement to stop. Look for a quit john who wants to stop smoking as well. You can help each other get through the rough times. A = Anticipate and plan for the challenges you'll face while quitting. Most people who begin smoking again do so within the first 3 months. You can help yourself make it through by preparing ahead for common challenges, such as nicotine withdrawal and cigarette cravings. R = Remove cigarettes and other tobacco products from your home, car, and work. Throw away all your cigarettes (no emergency pack!), lighters, ashtrays, and matches. Wash your clothes and freshen up anything that smells like smoke. Shampoo your car, clean your drapes and carpet, and steam your furniture. T = Talk to your doctor about getting help to quit. Your doctor can prescribe medication to help with withdrawal and suggest other alternatives. If you can't see a doctor, you can get many products over the counter at your local pharmacy or grocery store, including the nicotine patch, nicotine lozenges, and nicotine gum. Resources for Quitting Smoking: <https://www.[place].gov/documents/[facility]/Quit_Tobacco_Resources_for_patients_313 480_7.pdf> Supplementation: Take recommended dosages of Vitamin D and Calcium to help fortify your bones and help them to heal. See your health maintenance packet for dosages and recommended levels. DVT/VTE prophylaxis: You will be given compression stockings from the hospital. Wear these daily for the first two weeks after surgery. You may take them off at night. You may be prescribed a medication to help thin your blood. Take this as directed. If you are not prescribed this medication, early and frequent ambulation has been shown to be the best prophylaxis to deep vein thrombosis and sequelae related to this event. Assessment: L2 to S1 spondylosis with stenosis and neurogenic claudication Procedures: L2 to pelvis decompression fusion Patient Condition at Discharge: Good Plan - Discharge Summary Discharge Rx Participant: No New Discharge Prescriptions: New Cyclobenzaprine [Flexeril] 10 mg PO TID #21 tab Gabapentin 300 mg PO TID #30 cap Sennosides/Docusate Sodium [Senna Plus 8.6-50 mg Softgel] 1 each PO DAILY #20 capsule oxyCODONE HCL [OxyIR] 10 mg PO Q6H PRN #42 tab PRN Reason: Pain cefaDROXiL [Duricef] 500 mg PO Q12HR 5 Days #10 cap No Action Cholecalciferol [Vitamin D3 (25 Mcg = 1000 Iu)] 1,000 unit PO DAILY Levothyroxine Sodium [Synthroid] 125 mcg PO HS Lovastatin 40 mg PO HS Lisinopril/Hydrochlorothiazide [Lisinopril-Hctz 20-25 mg Tab] 1 tab PO HS Cinnamon Bark [Cinnamon] 1,200 mg PO DAILY Tart [place] 1 tab PO DAILY Ubidecarenone [Co Q-10] 200 mg PO DAILY Ascorbic Acid [Vitamin C] 1,000 mg PO DAILY Calcium Carbonate 500 mg PO DAILY Multivitamins, Thera [Multivitamin (formulary)] 1 tab PO DAILY Joint Advanced Health Complex 1 dose PO DAILY Aspirin [Adult Low Dose Aspirin EC] 81 mg PO DAILY Zinc 50 mg PO DAILY Lutein 40 mg PO DAILY Biotin [Rlfc-Nlez-Zgmtf] 10,000 mcg PO DAILY Gabapentin [Neurontin] 300 mg PO TID Discharge Medication List Cholecalciferol [Vitamin D3 (25 Mcg = 1000 Iu)] 1,000 unit PO DAILY 11/13/15 [History] Levothyroxine Sodium [Synthroid] 125 mcg PO HS 11/13/15 [History] Lisinopril/Hydrochlorothiazide [Lisinopril-Hctz 20-25 mg Tab] 1 tab PO HS 11/13 [History] Lovastatin 40 mg PO HS 11/13/15 [History] Aspirin [Adult Low Dose Aspirin EC] 81 mg PO DAILY 03/10/22 [History] Cinnamon Bark [Cinnamon] 1,200 mg PO DAILY 03/10/22 [History] Lutein 40 mg PO DAILY 03/10/22 [History] Tart [place] 1 tab PO DAILY 03/10/22 [History] Zinc 50 mg PO DAILY 03/10/22 [History] Ascorbic Acid [Vitamin C] 1,000 mg PO DAILY 04/11/24 [History] Biotin [Avmv-Taif-Vwqcm] 10,000 mcg PO DAILY 04/11/24 [History] Calcium Carbonate 500 mg PO DAILY 04/11/24 [History] Gabapentin [Neurontin] 300 mg PO TID 04/11/24 [History] Joint Advanced Health Complex 1 dose PO DAILY 04/11/24 [History] Multivitamins, Thera [Multivitamin (formulary)] 1 tab PO DAILY 04/11/24 [History] Ubidecarenone [Co Q-10] 200 mg PO DAILY 04/11/24 [History] Cyclobenzaprine [Flexeril] 10 mg PO TID #21 tab 04/19/24 [Rx] Gabapentin 300 mg PO TID #30 cap 04/19/24 [Rx] Sennosides/Docusate Sodium [Senna Plus 8.6-50 mg Softgel] 1 each PO DAILY #20 capsule 04/19/24 [Rx] cefaDROXiL [Duricef] 500 mg PO Q12HR 5 Days #10 cap 04/19/24 [Rx] oxyCODONE HCL [OxyIR] 10 mg PO Q6H PRN #42 tab 04/19/24 [Rx] Follow up Appointment(s)/Referral(s): Roverto Madrigal DO [Doctor of Osteopathic Medicine] - 05/01/24 1:30 pm [facility] Visiting Nurse, [NON-STAFF] - As Needed Activity/Diet/Wound Care/Special Instructions: Spine Discharge and Recovery Instructions Date of Surgery: 04/16/2024 Diagnosis: L2 to S1 spondylosis with stenosis and neurogenic claudication Procedure: L2 to pelvis decompression fusion Medications: see list All medication refills should be obtained through your primary care doctor or your clinic spine surgeon. Please discuss prescription refills at your follow up appointment. Do not call the hospital for medication refills. Activity: [Encourage ambulation with assist of walker] [OOB 6-8x daily] [PT/OT daily work on balance, strength and mobility] [Up in chair with all meals, OOB all meals] [Shower daily] Brace: Wear lumbar brace when up and about at all times. Do not wear while sleeping or showering. May take breaks from brace while sitting or laying and resting. Dressing: Leave your dressing in place for a total of 3 days post operatively. Then you may remove your dressing and leave open to air. Keep the area clean and if not able to keep area clean, then cover with sterile gauze and tape. Showering: You may shower 3 days after your procedure allowing soap and water to run over incision. Do not scrub. Do not soak. Blot dry. Follow up: Please confirm a follow up appointment with your surgeon 2 weeks post operatively. Please make an appointment to follow up with your PCP in 1-2 weeks after surgery for evaluation 3 phase, 3-week plan POST OP WEEKS 1-3 1. Lifting/carrying/pushing/pulling limited to less than 5 pounds. 2. Do not sit for longer than 15 minutes at one time. Get up and walk around. Prolonged sitting is NOT advised. If you lay down, see if you can tolerate laying down on you front (belly side) 3. Walk for periods of 15 minutes = 1 mile but no longer; do it multiple times times each day. 4.Ice your low back after activity. POST OP WEEKS 3-6 1. Lifting limited to less than 20 pounds. 2. Do not sit for longer than 30 minutes at a time. Frequently change positions. Use a sit-to stand workstation or take frequent breaks from sitting if you have returned to work. 3. Walk for 30 minutes each day. If possible, do these three or more times a day POST OP WEEKS 6+ At your 6-week appointment we will give you a physical therapy referral to focus on a core stabilization and strengthening program. You should also work on leg & buttock strengthening, hamstring & quadriceps stretching, and continue a low impact aerobic activity program such as swimming, walking, or riding a stationary bicycle. During the initial 6 weeks after your surgery, you are at the highest risk of re-injuring your spine. You should generally avoid BLTs (bending, lifting and twisting combination motions) and follow the above guidelines to reduce the chance of reinjury. You can anticipate post op appointments in our office at approximately 3 weeks and 6 weeks after your surgery. INCISION CARE: If your incision is not draining you do NOT need to cover it with a dressing. Keep your incision clean, dry and intact. In most cases, we apply skin glue, felipa or sutures to the incision at the time of surgery. This will be like a crust or have the appearance of a scab and will fall off in time on its own. The stitches or felipa need to be removed at 3 weeks post op appointment. You may begin to shower 3 days after surgery (this allows the glue to bridges well). However, please avoid scrubbing the incision s ite or peeling off any of the skin glue. This will ensure optimal healing of your incision. Also, during this time avoid soaking the incision area in water - this includes swimming pools, hot tubs or baths. No ointments, lotions or oils on the incision until your surgeon allows. Leave felipa, sutures or glue in place. Neurological dysfunction that comes on suddenly can also be a sign of a stroke. Below some common symptoms of a stroke are listed: B - balance difficulty such as sudden onset walking or leaning to one side - NEW E - eye problem such as sudden double vision or trouble seeing on one side - NEW F - Facial weakness or numbness on one side - NEW A - Arm or leg weakness or numbness on one side - NEW S - Slurred speech or difficulty with word finding - NEW T - Time is BRAIN! Call 911 as soon as you recognize these symptoms Diet: Consume a regular diet rich in vegetables and lean protein such as chicken or fish. You should consume in a ratio of approximately 20% fats|40% carbohydrates|40%protein. Vegetables, sweet potatoes, brown rice or quinoa are examples of good carbohydrates. Chips, white bread, cookies and sweets/sugar are examples of bad carbohydrates. Limit your bad carbs, go wild with good carbs. "Life's Simple 7" Guidelines as per [place] [employer] These will help you reclaim your life after surgery and ice cream freezer helper in your recovery, keeping in mind your restrictions. (1) Get Active. Physical activity can help people lose weight, control high blood pressure and cholesterol, feel emotionally better, and sleep better. (2) Control Cholesterol. Avoid a diet high in saturated fat, trans fat, & cholesterol. Limit whole milk & cream, ice cream, butter, egg yolks, processed meats (like sausage and hot dogs), and fatty meats. Choose healthy foods that are low in saturated fat, trans fat and cholesterol which include: Fruits and vegetables, fiber rich grain products (like whole grain pasta and brown rice), lean meat such as chicken, fish, nuts, seeds, and legumes. (3) Eat Better. Eat small portions. Shop at the grocery with a list and do not stray from it. Tips for a healthy diet include: Limit sodium intake to less than 1500mg daily, avoid prepackaged, processed, and fast foods, choose a diet rich in fruits, vegetables, and whole grain, high fiber foods, and limit saturated & cholesterol in your diet. (4) Manage Blood Pressure. If you have high blood pressure, you should have a cuff at home so that you can check your blood pressure regularly. Be sure you have a good cuff. An arm one is generally better than a wrist one. Bring the cuff to a doctor's appointment to validate that the measurements that your cuff are taking are accurate. Take your blood pressure twice daily when you are sitting down and relaxing. Record the numbers in a log and bring this log with you to your doctors' appointments. (5) Lose Weight if your BMI is above 25. A healthy BMI is between 19-25. To calculate Your BMI, you may use a Standard BMI Calculator on the NIH BMI website: <www.nhlbi.nih.gov/guidelines/obesity/BMI/bmicalc.htm>. Weigh oneself daily. If you are overweight, set a goal to lose weight. A pound a week loss if needed is a good target. (6) Reduce Blood Sugar. Limit foods and liquids with "added sugars." (Added sugars include sucrose, fructose, glucose, maltose, dextrose, high fructose corn syrup, corn syrup, concentrated fruit juice and honey). (7) Stop Smoking. If you smoke, quitting smoking is one of the best things that you can do for your health. Smoking increases your risk of heart attack, stroke, and peripheral vascular disease, which is a build-up of plaque in your arteries. Please discard all the cigarettes and lighters in your house. Have a plan for what you will do when you have the urge to smoke. Direct and second- hand smoke shortens your life as well as the lives of your family, friends and others around you. For your health and the health of those around you, please consider quitting! Proper Bending Body Mechanics: Maintain a wide stance with one foot slightly in front of the other. Keep your back straight. Bend utilizing the strength in your hips and knees. Do not bend at the waist. Maintain the lifted object at your waist-level close to your body. Avoid lifting weight that causes immediately pain or pain anywhere in the body a fterwards. Smoking/Nicotine If there was ever one thing that you could do to increase your overall health, decrease your risk of cardiovascular problems by about 39% the second you make the choice, it is to STOP SMOKING. Your body's most instant gratification is the second you stop smoking. We have all heard the studies, read the articles but it is true, smoking is extremely bad for your overall health, and moreover it is detrimental to your bone health. Nicotine, IN ANY FORM, kills bone cells, prevents your body from healing fractures, and significantly prolongs healing after surgery. In spine surgery specifically, it increases your risk of not healing your bones to create a fusion and increases your risk of having a revision surgery due to this up to 60%. I know it is hard. I know it feels impossible. But there are ways. Take control of your life. We are here to help you through it. And when you are ready, ask us and we can direct you to help if you desire. Use the START Plan to Quit Smoking (please visit the Helpguide.org website listed below for more information): S = Set a quit date. Choose a date within the next 2 weeks, so you have enough time to prepare without losing your motivation to quit. If you mainly smoke at work, quit on the weekend, so you have a few days to adjust to the change. T = Tell family, friends, and co-workers that you plan to quit. Let your friends and family in on your plan to quit smoking and tell them you need their support and encouragement to stop. Look for a quit john who wants to stop smoking as well. You can help each other get through the rough times. A = Anticipate and plan for the challenges you'll face while quitting. Most people who begin smoking again do so within the first 3 months. You can help yourself make it through by preparing ahead for common challenges, such as nicotine withdrawal and cigarette cravings. R = Remove cigarettes and other tobacco products from your home, car, and work. Throw away all your cigarettes (no emergency pack!), lighters, ashtrays, and matches. Wash your clothes and freshen up anything that smells like smoke. Shampoo your car, clean your drapes and carpet, and steam your furniture. T = Talk to your doctor about getting help to quit. Your doctor can prescribe medication to help with withdrawal and suggest other alternatives. If you can't see a doctor, you can get many products over the counter at your local pharmacy or grocery store, including the nicotine patch, nicotine lozenges, and nicotine gum. Resources for Quitting Smoking: <https://www.[place].gov/documents/mdc/Quit_Tobacco_Resources_for_patients_313 480_7.pdf> Supplementation: Take recommended dosages of Vitamin D and Calcium to help fortify your bones and help them to heal. See your health maintenance packet for dosages and recommended levels. DVT/VTE prophylaxis: You will be given compression stockings from the hospital. Wear these daily for the first two weeks after surgery. You may take them off at night. You may be prescribed a medication to help thin your blood. Take this as directed. If you are not prescribed this medication, early and frequent ambulation has been shown to be the best prophylaxis to deep vein thrombosis and sequelae related to this event. Discharge Disposition: HOME WITH HOME HEALTH SERVICES
[2024-04-19 10:43] LABS: Basophils # (A) 0.05 X 10*3/uL (0.00-0.10); Basophils % (A) 0.9 %; Eosinophils % (A) 3.7 %; Lymphocytes # (A) 1.69 X 10*3/uL (0.90-5.00); Lymphocytes % (A) 31.3 %; MCH 31.5 pg (27.0-32.0); MCV 101.4 FL (80.0-97.0); Mean Platelet Volume 10.8 FL (9.5-12.2); Monocytes # (A) 0.47 X 10*3/uL (0.20-1.00); Monocytes % (A) 8.7 %; NRBC Per 100 WBC 0 X 10*3/uL (0.00-0.01); Neutrophils # (A) 2.97 X 10*3/uL (1.80-7.70); Platelet Count 128 X 10*3/uL (140-440); RBC 2.86 X 10*6/uL (4.10-5.20); RDW 13.9 % (11.5-14.5)
--- NOTE | 2024-04-19 10:43 | P.PN ---
Subjective Progress Note Date: 04/19/24 Principal diagnosis: L2 to S1 spondylosis with stenosis and neurogenic claudication Patient was seen at bedside this morning sitting up in chair with legs elevated and present during encounter. Patient says she is still having a lot of pain to the back at this time. She says when she did get up today she needed some help. Patient says she has had a bowel movement since surgery. She says she has been urinating daily without issue. Patient is opening going home today, but is concerned that when she gets home she may be in too much pain. Patient denies chest pain, fever, shortness breath, nausea, vomiting, change in vision, loss of bowel/bladder control. Objective - Vital Signs Vital signs: Vital Signs Temp 98.1 F 04/19/24 07:44 Pulse 57 L 04/19/24 07:44 Resp 19 04/19/24 07:44 BP 121/66 04/19/24 07:44 Pulse Ox 99 04/19/24 07:44 FiO2 Intake & Output 04/18/24 04/19/24 04/19/24 18:59 06:59 18:59 Intake Total 865 Output Total 650 Balance 215 Intake: Oral 865 Output: Drainage 100 Back 100 Urine 550 Other: Voiding Method Indwelling Catheter Toilet # Voids 1 - Exam Dressing present over lumbar incision. Dressing appears to be clean, dry, intact. Negative for any exchange. Sensation is equal, symmetric, by intact. There is some generalized numbness in the lower extremities which does appear to be somewhat better since surgery. There is some generalized tenderness to palpation diffusely along the incision over the lumbar spine. Nontender to palpation throughout rest of exam. Patient does have good range of motion throughout bilateral upper extremities on exam. There is some limited range of motion in the bilateral hips secondary to referred pain and stiffness the low back. Full range of motion throughout bilateral knees and ankles. 5/5 in all major motor groups bilateral upper extremities. 4+/5 in all major motor groups in bilateral lower extremities. Radial pulses intact, 2+ bilaterally. Cap refill under 3 seconds in digits upper extremities. Negative Homans bilaterally. Negative clonus bilaterally. Negative Keren bilaterally. - Labs CBC & Chem 7: 04/18/24 05:36 04/18/24 05:36 Labs: Abnormal Lab Results - Last 24 Hours (Table) 04/18/24 Range/Units 05:36 BUN/Creatinine Ratio 29.78 H (12.00-20.00) Ratio Calcium 8.0 L (8.7-10.3) mg/dL Total Bilirubin 0.2 L (0.3-1.2) mg/dL AST 79 H (13-35) U/L Alkaline Phosphatase 33 L (41-126) U/L Total Protein 4.9 L (6.2-8.2) g/dL Albumin 3.2 L (3.8-4.9) g/dL Assessment and Plan Assessment: L2 to S1 spondylosis with stenosis and neurogenic claudication Postoperative day 3 status post L2-pelvis decompression fusion Plan: 1. L2 to S1 spondylosis with stenosis and neurogenic claudication - L2 to pelvis decompression fusion performed 04/16/2024. Patient stable at this morning. Patient does have a walker and cane now home. Continue to work with PT/OT daily. Pain medication as needed. Discharge home today with home care. Follow up in office with Dr. Madrigal in 2 weeks 2. Appreciate medical management 3. Pain management - OxyIr; gabapentin; Flexeril 4. GI prophylaxis - miralax; senna 5. DVT prophylaxis - aspirin 6. PT/OT - weightbearing as tolerated with walker 7. Encourage incentive spirometer use 8. Discharge planning - home today with home care Time with Patient: Less than 30
--- NOTE | 2024-04-19 10:45 | P.PN ---
Subjective Progress Note Date: 04/19/24 This is a 78-year-old female patient of Dr. Watkins who presented for an electiveL2 pelvis decompression and fusion for lumbar stenosis with Dr. Madrigal on 04/16/2024.Patient has past medical history of hyperlipidemia, hypertension, thyroid disorder, thyroid cancer, DVT in 1976 chronic back pain.Postoperatively patient was noted to have abdominal distention. NG tube was placed and surgical service is consulted. According to patient she's had this issue for quite some time and has followed with GI services outpatient. At this time patient is currently sitting up in chair. Patient reports some pain to back. Patient denies any chest pain or shortness breath. Patient denies nausea and diarrhea. Patient deniesAny urinary burning or frequency On 04/18/2024 patient was seen and examined on the medical floor she is alert and oriented x 3 in no apparent distress she is still complaining of neck pain and low back pain otherwise she denies any complaints there is no fever or chills no headache or dizziness no chest pain no shortness of breath no cough no nausea or vomiting no abdominal pain no diarrhea no urinary symptoms On 04/19/2024 patient's alert and oriented 3. Patient still complaining about some back pain and weakness. Patient denies chest pain. Patient denies nausea vomiting or diarrhea. Patient denies any urinary burning or frequency. Current vital signs temp 98.1, heart rate 57, respiratory rate 19, blood pressure 121/66 with pulse ox 99% on room air Objective - Vital Signs Vital signs: Vital Signs Temp 98.1 F 04/19/24 07:44 Pulse 57 L 04/19/24 07:44 Resp 19 04/19/24 07:44 BP 121/66 04/19/24 07:44 Pulse Ox 99 04/19/24 07:44 FiO2 Intake & Output 04/18/24 04/19/24 04/19/24 18:59 06:59 18:59 Intake Total 865 Output Total 650 Balance 215 Intake: Oral 865 Output: Drainage 100 Back 100 Urine 550 Other: Voiding Method Indwelling Catheter Toilet # Voids 1 - Exam In general patient is alert and oriented x 3 in no distress HEENT head normocephalic and atraumatic Neck is supple no JVD no goiter no lymphadenopathy no carotid bruit Chest examination is clear to auscultation no crackles no wheezing Cardiac exam reveals regular heart sounds S1 and S2 no gallops no murmurs Abdomen is soft nontender no organomegaly with normal bowel sounds Extremity exam reveals no edema no cyanosis or clubbing Neurological examination reveals no gross focal deficits - Labs CBC & Chem 7: 04/19/24 05:36 04/18/24 05:36 Labs: Abnormal Lab Results - Last 24 Hours (Table) 04/19/24 Range/Units 05:36 RBC 2.86 L (4.10-5.20) X 10*6/uL Hgb 9.0 L (12.0-15.0) g/dL Hct 29.0 L (37.2-46.3) % MCV 101.4 H (80.0-97.0) FL MCHC 31.0 L (32.0-37.0) g/dL Plt Count 128 L (140-440) X 10*3/uL Assessment and Plan Assessment: 1. Status post L2 to pelvis decompressionWith Dr. Madrigal on 04/16/2024 2. Postop operative abdominal distention and pain. 3. History of thyroid cancer 4. History of hyperlipidemia 5. History of essential hypertension 6. History of osteoporosis Thank you for this consultation we'll continue to follow patient closely throughout stay DVT prophylaxis SCDs Repeat labs ordered for a.m.
[2024-04-19 10:46] LABS: ALT 25 U/L (8-44); AST 60 U/L (13-35); Albumin 3.3 g/dL (3.8-4.9); Albumin/Globulin Ratio 1.83 Ratio (1.60-3.17); Alkaline Phosphatase 38 U/L (41-126); BUN/Creat Ratio 26.88 Ratio (12.00-20.00); Blood Urea Nitrogen 21.5 mg/dL (9.0-27.0); Calcium 7.9 mg/dL (8.7-10.3); Carbon Dioxide 21.1 mmol/L (21.6-31.8); Chloride 107 mmol/L (96-109); Globulin 1.8 g/dL (1.6-3.3); Glucose 88 mg/dL (70-110); Potassium 4.4 mmol/L (3.5-5.5); Sodium 138 mmol/L (135-145); Total Bilirubin <0.2 mg/dL (0.3-1.2); Total Protein 5.1 g/dL (6.2-8.2)
--- NOTE | 2024-04-20 07:40 | P.PN ---
Subjective Progress Note Date: 04/20/24 Principal diagnosis: L2-S1 SPONDYLOSIS WITH STENOSIS; NEUROGENIC CLAUDICATION Pt s/e this AM. She is extremely painful and states she feels much worse this AM than she did yesterday. She states she can barely get to the bathroom and now complains of new numbness in her LE on the anterior portion of her thighs. She states no perineal numbness/tingling but states it is more difficulty to urinate than before and she has not had another BM since POD 2. She states no f/c/sob/ cp at this time. Objective - Vital Signs Vital signs: Vital Signs Temp 97.5 F L 04/20/24 07:32 Pulse 65 04/20/24 07:32 Resp 18 04/20/24 07:32 BP 129/66 04/20/24 07:32 Pulse Ox 94 L 04/20/24 07:32 FiO2 Intake & Output 04/19/24 04/20/24 04/20/24 18:59 06:59 18:59 Other: Voiding Method Toilet # Voids 3 - Exam Physical Exam: EXAM REPEATED TODAY, NO CHANGES. -Patient is alert and oriented 3 appears well-nourished well-hydrated is in no acute distress. They do not appear septic. -There is TTP lumbar spine around incision with marked increase in swelling and taut hematoma under the fascia noted at this time. There is drainage from the inferior portion of the incision still which has increased since yesterday of a bloody sort. There is bruising of the skin, normal, from surgery. [-Incision is healing, without sings of infection at this time. -Upper extremities show [5] out of 5 strength in all major muscle groups. -Lower extremities with 4 out of 5 strength in all major muscle groups -There is [FROM] that is [painless] of the b/l UE and LE in all major joints. She is starting to show some tensioning signs in the LE b/l -Rectal is intact, but she has some decreased inner thigh sensation from before. -They are intact to light touch sensation in C5 to T1 and L2 to S1 nerve distribution. She has normal numbness in bilateral lower extremities which has not resolved yet which she states feels somewhat better -DTR [2]/4 all upper and lower extremities -Patient has palpable distal pulses all 4 ext -Compartments are soft and compressible. -Patient shows a negative Yung's [-Neg Hoffmans b/l] [-Neg Clonus b/l] [-Neg babinski b/l] Cranial nerves II through XII are grossly intact. Drain was DC POD3 with <100 cc output in 24 hrs. - Labs CBC & Chem 7: 04/19/24 05:36 04/19/24 05:36 Labs: Abnormal Lab Results - Last 24 Hours (Table) 04/19/24 04/19/24 Range/Units 05:36 05:36 RBC 2.86 L (4.10-5.20) X 10*6/uL Hgb 9.0 L (12.0-15.0) g/dL Hct 29.0 L (37.2-46.3) % MCV 101.4 H (80.0-97.0) FL MCHC 31.0 L (32.0-37.0) g/dL Plt Count 128 L (140-440) X 10*3/uL Carbon Dioxide 21.1 L (21.6-31.8) mmol/L BUN/Creatinine Ratio 26.88 H (12.00-20.00) Ratio Calcium 7.9 L (8.7-10.3) mg/dL Total Bilirubin <0.2 L (0.3-1.2) mg/dL AST 60 H (13-35) U/L Alkaline Phosphatase 38 L (41-126) U/L Total Protein 5.1 L (6.2-8.2) g/dL Albumin 3.3 L (3.8-4.9) g/dL Assessment and Plan (1) Lumbar stenosis with neurogenic claudication Current Visit: Yes Status: Acute Priority: Medium Code(s): M48.062 - SPINAL STENOSIS, LUMBAR REGION WITH NEUROGENIC CLAUDICATION SNOMED Code(s): 40152467 (2) Fusion of lumbar spine Current Visit: Yes Status: Acute Code(s): M43.26 - FUSION OF SPINE, LUMBAR REGION SNOMED Code(s): 968911282 (3) Hematoma Current Visit: Yes Status: Acute Code(s): T14.8XXA - OTHER INJURY OF UNSPECIFIED BODY REGION, INITIAL ENCOUNTER SNOMED Code(s): 364047401 Plan: -NPO -CT STAT Lumbar spine w/o -OR today urgent for washout and hematoma evacuation -Discussed at length with patient. She understands the risks and benefits of surgery as outlined before in the risk review. We discussed doing this will make her not only feel better but she needs it done due to the pressure causing and increase in her LE numbness. She understands and is ammendable to this.
[2024-04-20 09:26] LABS: Basophils # (A) 0.02 X 10*3/uL (0.00-0.10); Basophils % (A) 0.4 %; Eosinophils # (A) 0.18 X 10*3/uL (0.04-0.35); Eosinophils % (A) 3.9 %; HCT 24.4 % (37.2-46.3); HGB 7.7 g/dL (12.0-15.0); Lymphocytes # (A) 1.04 X 10*3/uL (0.90-5.00); Lymphocytes % (A) 22.8 %; MCH 31.2 pg (27.0-32.0); MCHC 31.6 g/dL (32.0-37.0); MCV 98.8 FL (80.0-97.0); Mean Platelet Volume 10.3 FL (9.5-12.2); Monocytes # (A) 0.59 X 10*3/uL (0.20-1.00); Monocytes % (A) 12.9 %; NRBC Per 100 WBC 0 X 10*3/uL (0.00-0.01); Neutrophils % (A) 59.3 %; Platelet Count 131 X 10*3/uL (140-440); RBC 2.47 X 10*6/uL (4.10-5.20); RDW 13.8 % (11.5-14.5); WBC 4.56 X 10*3/uL (4.50-10.00)
--- NOTE | 2024-04-20 09:55 | P.PN ---
Subjective Progress Note Date: 04/20/24 This is a 78-year-old female patient of Dr. Watkins who presented for an electiveL2 pelvis decompression and fusion for lumbar stenosis with Dr. Madrigal on 04/16/2024.Patient has past medical history of hyperlipidemia, hypertension, thyroid disorder, thyroid cancer, DVT in 1976 chronic back pain.Postoperatively patient was noted to have abdominal distention. NG tube was placed and surgical service is consulted. According to patient she's had this issue for quite some time and has followed with GI services outpatient. At this time patient is currently sitting up in chair. Patient reports some pain to back. Patient denies any chest pain or shortness breath. Patient denies nausea and diarrhea. Patient deniesAny urinary burning or frequency On 04/18/2024 patient was seen and examined on the medical floor she is alert and oriented x 3 in no apparent distress she is still complaining of neck pain and low back pain otherwise she denies any complaints there is no fever or chills no headache or dizziness no chest pain no shortness of breath no cough no nausea or vomiting no abdominal pain no diarrhea no urinary symptoms On 04/19/2024 patient's alert and oriented 3. Patient still complaining about some back pain and weakness. Patient denies chest pain. Patient denies nausea vomiting or diarrhea. Patient denies any urinary burning or frequency. Current vital signs temp 98.1, heart rate 57, respiratory rate 19, blood pressure 121/66 with pulse ox 99% on room air On 04/20/2024 for patient is alert and oriented x 3. Patient having some increased pain this a.m. per patient plans today per surgical services for hematoma evacuation. Current vital signs Temp 97.5, heart rate 65, respiratory rate 18, blood pressure 129/66 with pulse ox 94% on room air Objective - Vital Signs Vital signs: Vital Signs Temp 97.5 F L 04/20/24 07:32 Pulse 65 04/20/24 07:32 Resp 18 04/20/24 07:32 BP 129/66 04/20/24 07:32 Pulse Ox 94 L 04/20/24 07:32 FiO2 Intake & Output 04/19/24 04/20/24 04/20/24 18:59 06:59 18:59 Other: Voiding Method Toilet # Voids 3 - Exam In general patient is alert and oriented x 3 in no distress HEENT head normocephalic and atraumatic Neck is supple no JVD no goiter no lymphadenopathy no carotid bruit Chest examination is clear to auscultation no crackles no wheezing Cardiac exam reveals regular heart sounds S1 and S2 no gallops no murmurs Abdomen is soft nontender no organomegaly with normal bowel sounds Extremity exam reveals no edema no cyanosis or clubbing Neurological examination reveals no gross focal deficits - Labs CBC & Chem 7: 04/20/24 03:39 04/19/24 05:36 Labs: Abnormal Lab Results - Last 24 Hours (Table) 04/19/24 04/19/24 04/20/24 Range/Units 05:36 05:36 03:39 RBC 2.86 L 2.47 L (4.10-5.20) X 10*6/uL Hgb 9.0 L 7.7 L (12.0-15.0) g/dL Hct 29.0 L 24.4 L (37.2-46.3) % MCV 101.4 H 98.8 H (80.0-97.0) FL MCHC 31.0 L 31.6 L (32.0-37.0) g/dL Plt Count 128 L 131 L (140-440) X 10*3/uL Carbon Dioxide 21.1 L (21.6-31.8) mmol/L BUN/Creatinine Ratio 26.88 H (12.00-20.00) Ratio Calcium 7.9 L (8.7-10.3) mg/dL Total Bilirubin <0.2 L (0.3-1.2) mg/dL AST 60 H (13-35) U/L Alkaline Phosphatase 38 L (41-126) U/L Total Protein 5.1 L (6.2-8.2) g/dL Albumin 3.3 L (3.8-4.9) g/dL Assessment and Plan Assessment: 1. Status post L2 to pelvis decompressionWith Dr. Madrigal on 04/16/2024 2. Postop operative abdominal distention and pain. 3. History of thyroid cancer 4. History of hyperlipidemia 5. History of essential hypertension 6. History of osteoporosis Thank you for this consultation we'll continue to follow patient closely throughout stay DVT prophylaxis SCDs Repeat labs ordered for a.m.
--- NOTE | 2024-04-20 11:56 | CT ---
EXAMINATION TYPE: CT lumbar spine wo con DATE OF EXAM: 04/20/2024 COMPARISON: 04/16/2024 HISTORY: hematoma. Recent back sx. CT DLP: 2284.6 mGycm CONTRAST: None TECHNIQUE: CT of the lumbar spine is performed on a spiral scan at 3 mm thick sections. Reconstructed images are performed in the coronal and sagittal planes. Beam hardening artifact causes some limitat ion. FINDINGS: There is been recent surgery with pedicle screws and disc spacers present at L2-3 through L 5-S1. Laminectomies have been performed. A discrete hematoma is not identified. Postsurgical soft tissue changes are evident within the parasp inal regions. Tiny amounts of postsurgical air may be present adjacent to the upper L1-L2 level. Smal l amount of fluid at this level is not entirely excluded. This area would measure 5.8 cm transverse b y approximately 2.3 cm AP, example image 202 image 28. This area is a changed compared to prior exam. IMPRESSION: Large hematoma is not identified. A smaller hematoma may be present posterior to L1 with some postsur gical air present. Monitoring can be performed as clinically indicated
[2024-04-20 12:00] LABS: BUN/Creat Ratio 22.86 Ratio (12.00-20.00); Carbon Dioxide 20.7 mmol/L (21.6-31.8); Chloride 109 mmol/L (96-109); Glucose 111 mg/dL (70-110); Potassium 4.7 mmol/L (3.5-5.5); Sodium 139 mmol/L (135-145)
[2024-04-20 12:01] LABS: ALT 31 U/L (8-44); AST 46 U/L (13-35); Alkaline Phosphatase 37 U/L (41-126); Calcium 7.9 mg/dL (8.7-10.3); Globulin 1.5 g/dL (1.6-3.3); Total Bilirubin <0.2 mg/dL (0.3-1.2); Total Protein 4.5 g/dL (6.2-8.2)
[2024-04-20] MEDS ORDERED: HYDROmorphone (PF) 1 MG/ML ONE (13:05)
[2024-04-20] MEDS ORDERED: MIDAZOLAM 2 MG/2 ML VIAL ONE (13:05)
[2024-04-20] MEDS ORDERED: fentaNYL (PF) 50 MCG/ML 2 ML AMP ONE (13:05)
[2024-04-20] MEDS ORDERED: LIDOCAINE 1% INJ 10MG/ML (20 ML MDV) ONE (13:05)
[2024-04-20] MEDS ORDERED: TRANEXAMIC 1,000 MG/100ML-NACL PREMIX BAG ONE (13:05)
[2024-04-20] MEDS ORDERED: GLYCOPYRROLATE 0.2 MG/ML 2 ML VIAL ONE (13:05)
[2024-04-20] MEDS ORDERED: ePHEDrine 50 MG/ML 1 ML VIAL ONE (13:05)
[2024-04-20] MEDS ORDERED: PROPOFOL 10 MG/ML 20 ML VIAL IV ONE (13:05)
[2024-04-20] MEDS ORDERED: SUCCINYLCHOLINE CHLORIDE 200 MG/10 ML VIAL IV ONE (13:05)
[2024-04-20] MEDS ORDERED: NEOSTIGMINE 1 MG/ML 10 ML VIAL ONE (13:05)
[2024-04-20] MEDS ORDERED: ROCURONIUM 10 MG/ML (5 ML VIAL) IV ONE (13:05)
[2024-04-20] MEDS ORDERED: PHENYLEPHRINE 10 MG/ML VIAL ONE (13:05)
[2024-04-20] MEDS: LACTATED RINGERS 1,000 ML IV ONE ×2 (13:10→14:16)
[2024-04-20] MEDS: SODIUM CHLORIDE 0.9% 50 ML with ceFAZolin 2,000 MG IV ONE (13:30)
[2024-04-20] MEDS: THROMBIN (BOVINE) 5,000 UNIT VIAL TOPICAL ONE (13:58)
[2024-04-20] MEDS: VANCOMYCIN 1,000 MG VIAL MISCELLANE ONE (14:10)
--- NOTE | 2024-04-20 16:09 | P.OP ---
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 INCISION AND DRAINAGE OF LUMBAR SPINE WITH IRRIGATION AND DEBRIDEMENT OF SKIN, SOFT TISSUE, MUSCLE AND BONE [id number] CM WITH HEMATOMA EVACUATION USING THE FOLLOWING: -SKIN KNIFE TO INCISE AND DEBRIDE SKIN -CURETTE TO DEBRIDE SOFT TISSUES. -RONGURE AND KERRISON TO DEBRIDE BONE 2. COMPLEX CLOSURE, 3 LAYER, LUMBAR SPINE [id number] CM Implants: NONE Anesthesia: MARIAH Surgeon: Roverto Madrigal Gl Accountant #1: Reymundo Mcmahon (WAS PRESENT AND ASSISTED WITH ALL ASPECTS OF THE CASE FROM POSITION TO DRESSING ) Estimated Blood Loss (ml): 75 IV fluids (ml): 1,100 Urine output (ml): 0 Pathology: none sent Condition: stable Disposition: PACU Indications for Procedure: 78 yo female who underwent L2-Pelvis decompression and fusion on Monday and was recovering well until last night and this morning. This morning and last night she states she became much worse as far as pain, and her LE started having more pain as well as numbness and tingling. She stated also that she started having issues with urinating that were new. We ordered CT scan STAT which showed a large fluid collection, likely hematoma, in her lumbar region. We discussed options and recommended this be evacuated urgently due to her progressive and worsening symptoms and she agreed. We discussed risks and benefits of surgery again with her and her at bedside and they understand and were willing to accept all the risks of surgery. They were willing to proceed. Description of Procedure: The patient was seen and examined in the preoperative area. All preoperative protocols were followed. Informed consent was obtained risks and benefits of the procedure were discussed at length. Risks including bleeding infection damage to the surrounding tissue and risk of reoperation were discussed with the patient. Risk of anesthesia up to and including was a discussed with the patient. These are outlined in the risk review. They were willing to accept these risks and all of the risks of surgery. The patient was given a weight- based dose of antibiotics in the form of Ancef. The patient was seen and evaluated by the anesthesia team who deemed them fit for surgery. The site was marked, the patient was willing to proceed with the procedure. The patient was transferred to the operative suite by the Department of anesthesia. They were then drifted off to sleep by the department anesthesia and GETA was performed. The patient tolerated this well. [Freeman catheter was placed by nursing staff, atraumatically]. Once confirmation of lines and ventilation the patient was transferred to a [prone Haim table very carefully]. All bony prominences including wrists, elbows, axilla, chest, hips, and thighs, and feet were padded very well. Special attention was paid to the genitalia and these were padded accordingly. SCDs were placed on bilateral lower extremities and were connected. Arms were well padded and placed [on arm boards up and out in the 90/90 position]. Once in position, again we confirmed good ventilation capabilities and that lines were running appropriately. The p atient's Lumbar spine was then exposed. 1010s were placed outlining the incision site. Standard alcohol was used to clean the incision site and allowed to dry. C-arm was used to biomark the patient and confirm level for incision which was marked with a skin marker. Operative briefing was performed with all teams and everyone in agreement to proceed. The patient was then prepped and draped in a normal sterile fashion. Timeout was then performed and all parties were in agreement with the procedure to be performed. Midline skin incision was made over the previous incision and taken down to the fascia which was opened and sutures removed. Upon opening of the fascia there was hematoma that was under pressure that was evacuated from this region. We removed all the sutures from the area and debrided the soft tissues and muscle and fascia in this area with curettes and rongure. Retractors were placed and the wound bed inspected. There were no large active areas of bleeding, but the wound bed was oozing more than is normal. We irrigated the wound with 3L ancef solution followed by Irricept 1L solution and then inspected more. Bone was debrided of some of the forming scar tissues as well as the old surgicel that was placed before. Dura was inspected and there were no injuries or leaks to be found. We inspected the pelvis and SI screws and fusion and this was oozing, but no active bleeding from this area. Floseal was placed in areas of more leaking an patties. We then irrigated with 3L gentamycin irrigation followed by 1 L betadine irrigation followed by 1L irricept, 1L betadine and finally 6L NSS. The wound bed again was inspected and the oozing had decreased. Surgicel powder was place in the wound bed for further hemostasis. A deep drain was placed subfacial. Vancomycin 2 g powder was placed deep in the wound as well. We then proceed with complex 4 layer closure. Deep fascia was closed with #1 PDS. Skin edges were then freshened with 10 blade. Deep subq closed with 0 Vicryl, Superficial subq closed with 2-0 vicryl and skin was closed with 2-0 nylon. Wound edges approximated well. The wound was then cleaned and dressed steril with adaptic, 4x4, abd and foam tape. The drain was secured with a stitch and drain sponge and foam tape placed. The patient was transferred back to their hospital bed atraumatically. [Drain continued to hold suction and were in good position]. Patient was then awakened and extubated by the department of anesthesia having tolerated the procedure very well with no complications. They were transferred to the postoperative care unit in stable condition.
[2024-04-20] MEDS: HYDROcodone/APAP 10-325MG 1 EACH TAB PO SCH (17:05)
[2024-04-21] MEDS: CAFFEINE-SODIUM BENZOATE 500 MG in SODIUM CHLORIDE 0.9% 1,000 ML IVPB ONE (08:09)
--- NOTE | 2024-04-21 08:25 | P.PN ---
Subjective Progress Note Date: 04/21/24 Principal diagnosis: L2-S1 SPONDYLOSIS WITH STENOSIS; NEUROGENIC CLAUDICATION POST OPERATIVE HEMATOMA Pt s/e this AM. She is stating pain again in her back like before, but when she rolled to her side she states it is better. She states her legs had some pain and numbness as well, but better when she was on her side. She states she has not been up since surgery yesterday. She did have BM yesteday before surgery. She states she has purwick and will urinate on command when she needs to and feels that it is easier than before. She denies any other issues at this time other than pain and swelling in her buttock region. Denies any perineal numbness/tingling at this time. Denies any f/c/sob/cp. Objective - Vital Signs Vital signs: Vital Signs Temp 97.7 F 04/21/24 07:33 Pulse 63 04/21/24 07:33 Resp 18 04/21/24 07:33 BP 124/51 04/21/24 07:33 Pulse Ox 90 L 04/21/24 07:33 FiO2 Intake & Output 04/20/24 04/21/24 04/21/24 18:59 06:59 18:59 Intake Total 1450 Output Total 150 325 Balance 1300 -325 Intake: IV 1450 Output: Urine 0 325 Estimated Blood Loss 150 - Exam Physical Exam: EXAM REPEATED TODAY, NO CHANGES. -Patient is alert and oriented 3 appears well-nourished well-hydrated is in no acute distress. They do not appear septic. -She has TTP about the lumbar spine and incision site, but it is much less than yesterday before surgery. She does not have taut skin or hematoma like flucctuence. There is some brusing about the area. There is no drainage from incision site, but there is also no drainage in drain either at this time. -Incision is healing, without sings of infection at this time. -Upper extremities show [5] out of 5 strength in all major muscle groups. -Lower extremities with 4- out of 5 strength in all major muscle groups, decon ditioning, no focal deficits, pain related. -There is [FROM] that is [painless] of the b/l UE and LE in all major joints. No tensioning BLE. -Rectal is intact, but she has some decreased inner thigh sensation from before. -They are intact to light touch sensation in C5 to T1 and L2 to S1 nerve distribution. She has normal numbness in bilateral lower extremities which has not resolved yet which she states feels somewhat better -DTR [2]/4 all upper and lower extremities -Patient has palpable distal pulses all 4 ext -Compartments are soft and compressible. -Patient shows a negative Yung's [-Neg Hoffmans b/l] [-Neg Clonus b/l] [-Neg babinski b/l] Cranial nerves II through XII are grossly intact. Drain: No output - Labs CBC & Chem 7: 04/20/24 03:39 04/20/24 03:39 Labs: Abnormal Lab Results - Last 24 Hours (Table) 04/20/24 04/20/24 Range/Units 03:39 03:39 RBC 2.47 L (4.10-5.20) X 10*6/uL Hgb 7.7 L (12.0-15.0) g/dL Hct 24.4 L (37.2-46.3) % MCV 98.8 H (80.0-97.0) FL MCHC 31.6 L (32.0-37.0) g/dL Plt Count 131 L (140-440) X 10*3/uL Carbon Dioxide 20.7 L (21.6-31.8) mmol/L BUN/Creatinine Ratio 22.86 H (12.00-20.00) Ratio Glucose 111 H (70-110) mg/dL Calcium 7.9 L (8.7-10.3) mg/dL Total Bilirubin <0.2 L (0.3-1.2) mg/dL AST 46 H (13-35) U/L Alkaline Phosphatase 37 L (41-126) U/L Total Protein 4.5 L (6.2-8.2) g/dL Albumin 3.0 L (3.8-4.9) g/dL Globulin 1.5 L (1.6-3.3) g/dL Assessment and Plan (1) Hematoma Current Visit: Yes Status: Acute Code(s): T14.8XXA - OTHER INJURY OF UNSPECIFIED BODY REGION, INITIAL ENCOUNTER SNOMED Code(s): 484526261 (2) Lumbar stenosis with neurogenic claudication Current Visit: Yes Status: Acute Priority: Medium Code(s): M48.062 - SPINAL STENOSIS, LUMBAR REGION WITH NEUROGENIC CLAUDICATION SNOMED Code(s): 85551519 (3) Fusion of lumbar spine Current Visit: Yes Status: Acute Code(s): M43.26 - FUSION OF SPINE, LUMBAR REGION SNOMED Code(s): 894924137 Plan: -Appreciate implementation consultant and team management. -Activity: Ambulate QID, OOB all meals, up and about, limit lifting bending twisting to less than 5-10 lbs. Use walker or cane if needed for stability. -Daily PT/OT, increase ambulation strength and balance. -[Brace when up and about, not needed in bed or chair] -Pain control: [Adequate at this time] -Meds: [reviewed] -GI ppx: senna, Miralax -DC hammond when up and about, bedside commode if needed -DVT PPX: Mechanical, early ambulation, SCDs, TEDS -Hygiene: Shower today. Maintain dressing clean and dry. Meticulous cleaning after BMs away from incision site -Drains: [Maintain for now. Record output, Strip every time it is checked. -Encourage IS 10x/hr -Dispo: [Pending]
[2024-04-21 09:26] LABS: ALT 28 U/L (8-44); AST 59 U/L (13-35); Albumin 3.1 g/dL (3.8-4.9); Albumin/Globulin Ratio 2.07 Ratio (1.60-3.17); Alkaline Phosphatase 42 U/L (41-126); BUN/Creat Ratio 17.43 Ratio (12.00-20.00); Blood Urea Nitrogen 12.2 mg/dL (9.0-27.0); Calcium 8.2 mg/dL (8.7-10.3); Chloride 106 mmol/L (96-109); Globulin 1.5 g/dL (1.6-3.3); Glucose 118 mg/dL (70-110); Potassium 4.4 mmol/L (3.5-5.5); Sodium 140 mmol/L (135-145); Total Bilirubin 0.4 mg/dL (0.3-1.2); Total Protein 4.6 g/dL (6.2-8.2)
[2024-04-21 09:37] LABS: Basophils # (A) 0.03 X 10*3/uL (0.00-0.10); Basophils % (A) 0.8 %; Eosinophils # (A) 0.15 X 10*3/uL (0.04-0.35); Eosinophils % (A) 3.8 %; HCT 24.2 % (37.2-46.3); HGB 7.6 g/dL (12.0-15.0); Lymphocytes # (A) 0.87 X 10*3/uL (0.90-5.00); Lymphocytes % (A) 21.9 %; MCH 31.4 pg (27.0-32.0); MCHC 31.4 g/dL (32.0-37.0); Mean Platelet Volume 10.3 FL (9.5-12.2); Monocytes # (A) 0.42 X 10*3/uL (0.20-1.00); Monocytes % (A) 10.6 %; NRBC Per 100 WBC 0 X 10*3/uL (0.00-0.01); Neutrophils # (A) 2.45 X 10*3/uL (1.80-7.70); Neutrophils % (A) 61.6 %; Platelet Count 136 X 10*3/uL (140-440); RBC 2.42 X 10*6/uL (4.10-5.20); WBC 3.97 X 10*3/uL (4.50-10.00)
--- NOTE | 2024-04-21 10:35 | P.PN ---
Subjective Progress Note Date: 04/21/24 This is a 78-year-old female patient of Dr. Watkins who presented for an electiveL2 pelvis decompression and fusion for lumbar stenosis with Dr. Madrigal on 04/16/2024.Patient has past medical history of hyperlipidemia, hypertension, thyroid disorder, thyroid cancer, DVT in 1977 chronic back pain.Postoperatively patient was noted to have abdominal distention. NG tube was placed and surgical service is consulted. According to patient she's had this issue for quite some time and has followed with GI services outpatient. At this time patient is currently sitting up in chair. Patient reports some pain to back. Patient denies any chest pain or shortness breath. Patient denies nausea and diarrhea. Patient deniesAny urinary burning or frequency On 04/18/2024 patient was seen and examined on the medical floor she is alert and oriented x 3 in no apparent distress she is still complaining of neck pain and low back pain otherwise she denies any complaints there is no fever or chills no headache or dizziness no chest pain no shortness of breath no cough no nausea or vomiting no abdominal pain no diarrhea no urinary symptoms On 04/19/2024 patient's alert and oriented 3. Patient still complaining about some back pain and weakness. Patient denies chest pain. Patient denies nausea vomiting or diarrhea. Patient denies any urinary burning or frequency. Current vital signs temp 98.1, heart rate 57, respiratory rate 19, blood pressure 121/66 with pulse ox 99% on room air On 04/20/2024 for patient is alert and oriented x 3. Patient having some increased pain this a.m. per patient plans today per surgical services for hematoma evacuation. Current vital signs Temp 97.5, heart rate 65, respiratory rate 18, blood pressure 129/66 with pulse ox 94% on room air On 04/21/2024 patient was seen and examined on the medical floor she is alert and oriented x 3 in no apparent distress, she is still complaining of back pain and requiring pain medications otherwise she denies any complaints there is no fever or chills no headache or dizziness no chest pain no shortness of breath no cough no nausea or vomiting no abdominal pain no diarrhea no urinary symptoms. Temperature is 98.4 pulse 60 respiration 18 blood pressure 106/61 pulse ox 93% on room air white blood count is 3.97 hemoglobin 7.6 platelet count 136. Patient underwent incision and drainage of the lumbar spine with irrigation and debridement of the skin and soft tissue with evacuation of hematoma yesterday. Objective - Vital Signs Vital signs: Vital Signs Temp 97.7 F 04/21/24 07:33 Pulse 63 04/21/24 07:33 Resp 18 04/21/24 07:33 BP 124/51 04/21/24 07:33 Pulse Ox 90 L 04/21/24 07:33 FiO2 Intake & Output 04/20/24 04/21/24 04/21/24 18:59 06:59 18:59 Intake Total 1450 Output Total 150 325 Balance 1300 -325 Intake: IV 1450 Output: Urine 0 325 Estimated Blood Loss 150 - Exam In general patient is alert and oriented x 3 in no distress HEENT head normocephalic and atraumatic Neck is supple no JVD no goiter no lymphadenopathy no carotid bruit Chest examination is clear to auscultation no crackles no wheezing Cardiac exam reveals regular heart sounds S1 and S2 no gallops no murmurs Abdomen is soft nontender no organomegaly with normal bowel sounds Extremity exam reveals no edema no cyanosis or clubbing Neurological examination reveals no gross focal deficits - Labs CBC & Chem 7: 04/21/24 05:29 04/21/24 05:29 Labs: Abnormal Lab Results - Last 24 Hours (Table) 04/20/24 04/20/24 Range/Units 03:39 03:39 RBC 2.47 L (4.10-5.20) X 10*6/uL Hgb 7.7 L (12.0-15.0) g/dL Hct 24.4 L (37.2-46.3) % MCV 98.8 H (80.0-97.0) FL MCHC 31.6 L (32.0-37.0) g/dL Plt Count 131 L (140-440) X 10*3/uL Carbon Dioxide 20.7 L (21.6-31.8) mmol/L BUN/Creatinine Ratio 22.86 H (12.00-20.00) Ratio Glucose 111 H (70-110) mg/dL Calcium 7.9 L (8.7-10.3) mg/dL Total Bilirubin <0.2 L (0.3-1.2) mg/dL AST 46 H (13-35) U/L Alkaline Phosphatase 37 L (41-126) U/L Total Protein 4.5 L (6.2-8.2) g/dL Albumin 3.0 L (3.8-4.9) g/dL Globulin 1.5 L (1.6-3.3) g/dL Assessment and Plan Assessment: 1. Status post L2 to pelvis decompressionWith Dr. Madrigal on 04/16/2024 2. Postop operative abdominal distention and pain. 3. History of thyroid cancer 4. History of hyperlipidemia 5. History of essential hypertension 6. History of osteoporosis Thank you for this consultation we'll continue to follow patient closely throughout stay DVT prophylaxis SCDs Repeat labs ordered for a.m.
[2024-04-22 07:37] LABS: HCT 24.6 % (34.0-46.0); Hypochromasia Slight; MCHC 30.7 g/dL (31.0-37.0); Macrocytosis Slight; Platelet Count 171 k/uL (150-450); RBC 2.43 m/uL (3.80-5.40); RDW 14.4 % (11.5-15.5); WBC 3.8 k/uL (3.8-10.6)
[2024-04-22 08:00] LABS: African American GFR (CKD) >90 (>60 ml/min/1.73 sqM); Anion Gap 2 mmol/L; Blood Urea Nitrogen 8 mg/dL (7-17); Calcium 7.5 mg/dL (8.4-10.2); Carbon Dioxide 23 mmol/L (22-30); Chloride 113 mmol/L (98-107); Glucose 97 mg/dL (74-99); Non-African American GFR(CKD) 89 (>60 ml/min/1.73 sqM); Potassium 5.1 mmol/L (3.5-5.1); Sodium 138 mmol/L (137-145)
[2024-04-22 08:08] LABS: HGB 7.5 gm/dL (11.4-16.0)
--- NOTE | 2024-04-22 10:27 | P.PN ---
Subjective Progress Note Date: 04/22/24 Principal diagnosis: 1. L2-S1 spondylosis with stenosis, severe 2. Bilateral lower extremity weakness 3. Neurogenic claudication Patient seen and examined this morning. Patient is sitting up in chair at bedside. Patient states she is tolerating activity well. She does report increased pain of her low back with activity, although she reports her pain is managed on current regimen. Surgical dressing to the lumbar spine is clean dry and intact with Hemovac present with no output at this time. May possibly remove drain later today. Patient states that she has been ambulatory within room to restroom and down the urbano. Patient does report that she was incontinent on her way to the restroom this morning, she states it was due to urgency. Continue to encourage patient to work with physical therapy today. Patient is wanting to go home versus subacute rehab at discharge. Encourage patient to continue to use incentive spirometer 10 times per hour while awake. Patient is experienced postop anemia with hemoglobin stable at 7.5 and hematocrit at 24.6, we will continue to monitor lab levels and vital signs. Objective - Vital Signs Vital signs: Vital Signs Temp 98.4 F 04/22/24 07:10 Pulse 61 04/22/24 07:10 Resp 16 04/22/24 07:10 BP 101/53 04/22/24 07:10 Pulse Ox 93 L 04/22/24 07:10 FiO2 Intake & Output 04/21/24 04/22/24 04/22/24 18:59 06:59 18:59 Output Total 0 Balance 0 Output: Drainage 0 Lower Back 0 Other: Voiding Method Toilet # Voids 2 1 - Exam Physical Examination General: The patient is awake and alert, in no acute distress Skin: Skin is warm and dry with no obvious rashes or lesions. Surgical incision to the lumbar spine, dressing is clean dry and intact with Hemovac present, no current drainage at this time. Eye: Pupils are equal, round and reactive to light, extra-ocular movements are intact; there is normal conjunctiva bilaterally. Neck: The neck is supple, there is no tenderness and ROM intact. Cardiovascular: There is a regular rate and rhythm. No murmur, rub or gallop is appreciated. Respiratory: Lungs are clear to auscultation, respirations are non-labored, breath sounds are equal. Gastrointestinal: Soft, non-distended, non-tender abdomen. Back: There is no tenderness to palpation in the midline, paralumbar, parathoracic or buttocks region. There is no obvious deformity . Musculoskeletal: ROM limited secondary to pain and stiffness from surgical procedure. Muscle strength in all major muscle groups of bilateral upper extremities 5/5, bilateral lower extremities 4/5. Neurological: CN 2-12 intact. There are no obvious motor or sensory deficits. Movement and coordination equal and intact. Sensory exam to light touch intact C5-T1 and intact from L2-S1. Reflexes 2/4 in bilateral upper and lower extremities. Negative Hoffmans, babinski, and clonus signs. Psychiatric: Cooperative, appropriate mood & affect, normal judgment. - Labs CBC & Chem 7: 04/22/24 07:23 04/22/24 07:23 Labs: Abnormal Lab Results - Last 24 Hours (Table) 04/21/24 04/21/24 04/22/24 Range/Units 05:29 05:29 07:23 WBC 3.97 L (4.50-10.00) X 10*3/uL RBC 2.42 L 2.43 L (4.10-5.20) X 10*6/uL Hgb 7.6 L 7.5 L D (12.0-15.0) g/dL Hct 24.2 L 24.6 L (37.2-46.3) % MCV 100.0 H 101.0 H (80.0-97.0) FL MCHC 31.4 L 30.7 L (32.0-37.0) g/dL Plt Count 136 L (140-440) X 10*3/uL Immature Gran # 0.05 H (0.00-0.04) X 10*3/uL Lymphocytes # 0.87 L (0.90-5.00) X 10*3/uL Chloride (98-107) mmol/L Glucose 118 H (70-110) mg/dL Calcium 8.2 L (8.7-10.3) mg/dL AST 59 H (13-35) U/L Total Protein 4.6 L (6.2-8.2) g/dL Albumin 3.1 L (3.8-4.9) g/dL Globulin 1.5 L (1.6-3.3) g/dL 04/22/24 Range/Units 07:23 WBC (4.50-10.00) X 10*3/uL RBC (4.10-5.20) X 10*6/uL Hgb (12.0-15.0) g/dL Hct (37.2-46.3) % MCV (80.0-97.0) FL MCHC (32.0-37.0) g/dL Plt Count (140-440) X 10*3/uL Immature Gran # (0.00-0.04) X 10*3/uL Lymphocytes # (0.90-5.00) X 10*3/uL Chloride 113 H (98-107) mmol/L Glucose (70-110) mg/dL Calcium 7.5 L (8.7-10.3) mg/dL AST (13-35) U/L Total Protein (6.2-8.2) g/dL Albumin (3.8-4.9) g/dL Globulin (1.6-3.3) g/dL Assessment and Plan Assessment: Postop day 2: Hematoma evacuation with irrigation; postop day 6 [id number] decompression and fusion 1. L2-S1 spondylosis with stenosis, severe 2. Bilateral lower extremity weakness 3. Neurogenic claudication Plan: -Appreciate [employer] consultant and team management. -Activity: Ambulate QID, OOB all meals, up and about, limit lifting bending twisting to less than 5 lbs. Use walker or cane if needed for stability. -Daily PT/OT, increase ambulation strength and balance. -Brace when up and about, not needed in bed or chair -Pain control: Adequate at this time -Meds: reviewed -GI ppx: senna, Miralax -DVT PPX: Mechanical -Hygiene: Shower today. Maintain dressing clean and dry. Meticulous cleaning after BMs away from the incision site -Drains: Maintain for now. Continue to monitor and record output q shift. -Encourage IS 10x/hr -Dispo: Anticipate discharge home with homecare vs [facility] in the next 24-48hrs *I reviewed and discussed this case with my attending Dr. Madrigal, whom has reviewed this chart and films and is in agreement with assessment and plan of care as outlined above. I have personally seen and examined the patient, performed the documentation and the assessment and plan as written. Number of minutes spent on the visit: 20m.
--- NOTE | 2024-04-22 17:43 | P.PN ---
Subjective Progress Note Date: 04/22/24 This is a 78-year-old female patient of Dr. Watkins who presented for an electiveL2 pelvis decompression and fusion for lumbar stenosis with Dr. Madrigal on 04/16/2024.Patient has past medical history of hyperlipidemia, hypertension, thyroid disorder, thyroid cancer, DVT in 1977 chronic back pain.Postoperatively patient was noted to have abdominal distention. NG tube was placed and surgical service is consulted. According to patient she's had this issue for quite some time and has followed with GI services outpatient. At this time patient is currently sitting up in chair. Patient reports some pain to back. Patient denies any chest pain or shortness breath. Patient denies nausea and diarrhea. Patient deniesAny urinary burning or frequency On 04/18/2024 patient was seen and examined on the medical floor she is alert and oriented x 3 in no apparent distress she is still complaining of neck pain and low back pain otherwise she denies any complaints there is no fever or chills no headache or dizziness no chest pain no shortness of breath no cough no nausea or vomiting no abdominal pain no diarrhea no urinary symptoms On 04/19/2024 patient's alert and oriented 3. Patient still complaining about some back pain and weakness. Patient denies chest pain. Patient denies nausea vomiting or diarrhea. Patient denies any urinary burning or frequency. Current vital signs temp 98.1, heart rate 57, respiratory rate 19, blood pressure 121/66 with pulse ox 99% on room air On 04/20/2024 for patient is alert and oriented x 3. Patient having some increased pain this a.m. per patient plans today per surgical services for hematoma evacuation. Current vital signs Temp 97.5, heart rate 65, respiratory rate 18, blood pressure 129/66 with pulse ox 94% on room air On 04/21/2024 patient was seen and examined on the medical floor she is alert and oriented x 3 in no apparent distress, she is still complaining of back pain and requiring pain medications otherwise she denies any complaints there is no fever or chills no headache or dizziness no chest pain no shortness of breath no cough no nausea or vomiting no abdominal pain no diarrhea no urinary symptoms. Temperature is 98.4 pulse 60 respiration 18 blood pressure 106/61 pulse ox 93% on room air white blood count is 3.97 hemoglobin 7.6 platelet count 136. Patient underwent incision and drainage of the lumbar spine with irrigation and debridement of the skin and soft tissue with evacuation of hematoma yesterday. On 04/22/2024 patient was seen and examined on the medical floor she is alert and oriented x 3 in no apparent distress, she is still complaining of back pain and constipation otherwise she denies any complaints there is no fever or chills no headache or dizziness no chest pain no shortness of breath no cough no nausea or vomiting no abdominal pain no diarrhea no urinary symptoms. Objective - Vital Signs Vital signs: Vital Signs Temp 98.4 F 04/22/24 07:10 Pulse 61 04/22/24 07:10 Resp 16 04/22/24 07:10 BP 101/53 04/22/24 07:10 Pulse Ox 93 L 04/22/24 07:10 FiO2 Intake & Output 04/21/24 04/22/24 04/22/24 18:59 06:59 18:59 Intake Total 120 Output Total 0 0 Balance 0 120 Intake: Oral 120 Output: Drainage 0 0 Lower Back 0 0 Other: Voiding Method Toilet Toilet # Voids 2 1 - Exam In general patient is alert and oriented x 3 in no distress HEENT head normocephalic and atraumatic Neck is supple no JVD no goiter no lymphadenopathy no carotid bruit Chest examination is clear to auscultation no crackles no wheezing Cardiac exam reveals regular heart sounds S1 and S2 no gallops no murmurs Abdomen is soft nontender no organomegaly with normal bowel sounds Extremity exam reveals no edema no cyanosis or clubbing Neurological examination reveals no gross focal deficits - Labs CBC & Chem 7: 04/22/24 07:23 04/22/24 07:23 Labs: Abnormal Lab Results - Last 24 Hours (Table) 04/22/24 04/22/24 Range/Units 07:23 07:23 RBC 2.43 L (3.80-5.40) m/uL Hgb 7.5 L D (11.4-16.0) gm/dL Hct 24.6 L (34.0-46.0) % MCV 101.0 H (80.0-100.0) fL MCHC 30.7 L (31.0-37.0) g/dL Chloride 113 H (98-107) mmol/L Calcium 7.5 L (8.4-10.2) mg/dL Assessment and Plan Assessment: 1. Status post L2 to pelvis decompressionWith Dr. Madrigal on 04/16/2024 2. Postop operative abdominal distention and pain. 3. History of thyroid cancer 4. History of hyperlipidemia 5. History of essential hypertension 6. History of osteoporosis Thank you for this consultation we'll continue to follow patient closely throughout stay DVT prophylaxis SCDs Repeat labs ordered for a.m.
[2024-04-23 03:48] LABS: HCT 24.1 % (34.0-46.0); HGB 7.3 gm/dL (11.4-16.0); Hypochromasia Slight; MCH 30.6 pg (25.0-35.0); MCHC 30.1 g/dL (31.0-37.0); MCV 101.5 fL (80.0-100.0); Macrocytosis Slight; Mean Platelet Volume 8.3; Platelet Count 195 k/uL (150-450); RBC 2.38 m/uL (3.80-5.40); RDW 14.4 % (11.5-15.5); WBC 4.8 k/uL (3.8-10.6)
[2024-04-23 04:06] LABS: Potassium 4.2 mmol/L (3.5-5.1)
[2024-04-23 04:09] LABS: African American GFR (CKD) >90 (>60 ml/min/1.73 sqM); Anion Gap 2 mmol/L; Blood Urea Nitrogen 11 mg/dL (7-17); Calcium 7.8 mg/dL (8.4-10.2); Carbon Dioxide 23 mmol/L (22-30); Chloride 110 mmol/L (98-107); Glucose 110 mg/dL (74-99); Non-African American GFR(CKD) 89 (>60 ml/min/1.73 sqM); Sodium 135 mmol/L (137-145)
--- NOTE | 2024-04-23 08:48 | P.PN ---
Subjective Progress Note Date: 04/23/24 Principal diagnosis: 1. L2-S1 spondylosis with stenosis, severe 2. Bilateral lower extremity weakness 3. Neurogenic claudication Patient seen and examined this morning. Patient resting comfortably in bed. Patient reports her pain is managed on current regimen. Surgical incision to the lumbar spine is well approximated with sutures intact. Hemovac drain has been removed. There is a small amount of serosanguineous drainage from insertion site. Patient reports she has been ambulatory within room with walker, ELIANE. Continue to encourage patient to work with physical therapy today. Patient is wanting to go home versus subacute rehab at discharge. Encourage patient to continue to use incentive spirometer 10 times per hour while awake. Patient is experienced postop anemia with hemoglobin that has slightly dropped to 7.3 and hematocrit at 24.1, we will continue to monitor lab levels and vital signs. Objective - Vital Signs Vital signs: Vital Signs Temp 98.6 F 04/23/24 07:35 Pulse 69 04/23/24 07:35 Resp 16 04/23/24 07:35 BP 127/70 04/23/24 07:35 Pulse Ox 96 04/23/24 07:35 FiO2 Intake & Output 04/22/24 04/23/24 04/23/24 18:59 06:59 18:59 Intake Total 120 1000 Output Total 0 0 Balance 120 1000 Intake: Intake, IV Titration 1000 Amount 0.9% NaCl with KCl 20 Meq 900 /l 1,000 ml @ 75 mls/hr IV .[id number] MARIA VICTORIA Rx#: [id number] ceFAZolin 2 gm In Sodium 100 Chloride 0.9% 50 ml @ 100 mls/hr IVPB Q8H MARIA VICTORIA Rx#: [id number] Oral 120 Output: Drainage 0 0 Lower Back 0 0 Other: Voiding Method Toilet Toilet # Voids 3 2 - Exam Physical Examination General: The patient is awake and alert, in no acute distress Skin: Skin is warm and dry with no obvious rashes or lesions. Surgical incision to the lumbar spine, edges are well approximated with sutures intact. H emovac drain has been removed, small amount of serosanguineous drainage from insertion site. Eye: Pupils are equal, round and reactive to light, extra-ocular movements are intact; there is normal conjunctiva bilaterally. Neck: The neck is supple, there is no tenderness and ROM intact. Cardiovascular: There is a regular rate and rhythm. No murmur, rub or gallop is appreciated. Respiratory: Lungs are clear to auscultation, respirations are non-labored, breath sounds are equal. Gastrointestinal: Soft, non-distended, non-tender abdomen. Back: There is no tenderness to palpation in the midline, paralumbar, parathoracic or buttocks region. There is no obvious deformity . Musculoskeletal: ROM limited secondary to pain and stiffness from surgical procedure. Muscle strength in all major muscle groups of bilateral upper extremities 5/5, bilateral lower extremities 4/5. Neurological: CN 2-12 intact. There are no obvious motor or sensory deficits. Movement and coordination equal and intact. Sensory exam to light touch intact C5-T1 and intact from L2-S1. Reflexes 2/4 in bilateral upper and lower extremities. Negative Hoffmans, babinski, and clonus signs. Psychiatric: Cooperative, appropriate mood & affect, normal judgment. - Labs CBC & Chem 7: 04/23/24 03:14 04/23/24 03:14 Labs: Abnormal Lab Results - Last 24 Hours (Table) 04/23/24 04/23/24 Range/Units 03:14 03:14 RBC 2.38 L (3.80-5.40) m/uL Hgb 7.3 L (11.4-16.0) gm/dL Hct 24.1 L (34.0-46.0) % MCV 101.5 H (80.0-100.0) fL MCHC 30.1 L (31.0-37.0) g/dL Sodium 135 L (137-145) mmol/L Chloride 110 H (98-107) mmol/L Glucose 110 H (74-99) mg/dL Calcium 7.8 L (8.4-10.2) mg/dL Assessment and Plan Assessment: Postop day 3: Hematoma evacuation with irrigation; Postop day 7: [id number] decompression and fusion 1. L2-S1 spondylosis with stenosis, severe 2. Bilateral lower extremity weakness 3. Neurogenic claudication Plan: -Appreciate data virtualization consultant and team management. -Activity: Ambulate QID, OOB all meals, up and about, limit lifting bending twisting to less than 5 lbs. Use walker or cane if needed for stability. -Daily PT/OT, increase ambulation strength and balance. -Brace when up and about, not needed in bed or chair -Pain control: Adequate at this time -Meds: reviewed -GI ppx: senna, Miralax -DVT PPX: Mechanical -Hygiene: Shower today. Maintain dressing clean and dry. Meticulous cleaning after BMs away from the incision site -Encourage IS 10x/hr -Dispo: Anticipate discharge home with homecare in the next 24-48hrs *I reviewed and discussed this case with my attending Dr. Madrigal, whom has reviewed this chart and films and is in agreement with assessment and plan of care as outlined above. I have personally seen and examined the patient, performed the documentation and the assessment and plan as written. Number of minutes spent on the visit: 20m.
[2024-04-23] MEDS: SENNOSIDES-DOCUSATE SODIUM 1 EACH TAB PO SCH (09:00)
--- NOTE | 2024-04-23 10:43 | P.PN ---
Subjective Progress Note Date: 04/23/24 This is a 78-year-old female patient of Dr. Watkins who presented for an electiveL2 pelvis decompression and fusion for lumbar stenosis with Dr. Madrigal on 04/16/2024.Patient has past medical history of hyperlipidemia, hypertension, thyroid disorder, thyroid cancer, DVT in 1977 chronic back pain.Postoperatively patient was noted to have abdominal distention. NG tube was placed and surgical service is consulted. According to patient she's had this issue for quite some time and has followed with GI services outpatient. At this time patient is currently sitting up in chair. Patient reports some pain to back. Patient denies any chest pain or shortness breath. Patient denies nausea and diarrhea. Patient deniesAny urinary burning or frequency On 04/18/2024 patient was seen and examined on the medical floor she is alert and oriented x 3 in no apparent distress she is still complaining of neck pain and low back pain otherwise she denies any complaints there is no fever or chills no headache or dizziness no chest pain no shortness of breath no cough no nausea or vomiting no abdominal pain no diarrhea no urinary symptoms On 04/19/2024 patient's alert and oriented 3. Patient still complaining about some back pain and weakness. Patient denies chest pain. Patient denies nausea vomiting or diarrhea. Patient denies any urinary burning or frequency. Current vital signs temp 98.1, heart rate 57, respiratory rate 19, blood pressure 121/66 with pulse ox 99% on room air On 04/20/2024 for patient is alert and oriented x 3. Patient having some increased pain this a.m. per patient plans today per surgical services for hematoma evacuation. Current vital signs Temp 97.5, heart rate 65, respiratory rate 18, blood pressure 129/66 with pulse ox 94% on room air On 04/21/2024 patient was seen and examined on the medical floor she is alert and oriented x 3 in no apparent distress, she is still complaining of back pain and requiring pain medications otherwise she denies any complaints there is no fever or chills no headache or dizziness no chest pain no shortness of breath no cough no nausea or vomiting no abdominal pain no diarrhea no urinary symptoms. Temperature is 98.4 pulse 60 respiration 18 blood pressure 106/61 pulse ox 93% on room air white blood count is 3.97 hemoglobin 7.6 platelet count 136. Patient underwent incision and drainage of the lumbar spine with irrigation and debridement of the skin and soft tissue with evacuation of hematoma yesterday. On 04/22/2024 patient was seen and examined on the medical floor she is alert and oriented x 3 in no apparent distress, she is still complaining of back pain and constipation otherwise she denies any complaints there is no fever or chills no headache or dizziness no chest pain no shortness of breath no cough no nausea or vomiting no abdominal pain no diarrhea no urinary symptoms. On 04/23/2024 patient's alert and oriented 3. Patient still having some back pain. Patient also complaining of constipation.Current vital signs temp 98.6, heart rate 69, respiratory rate 16, blood pressure 127/70 with pulse ox 96% on room air patient denies any nausea or vomiting. Hemoglobin low at 7.3 iron studies ordered Objective - Vital Signs Vital signs: Vital Signs Temp 98.6 F 04/23/24 07:35 Pulse 69 04/23/24 07:35 Resp 16 04/23/24 07:35 BP 127/70 04/23/24 07:35 Pulse Ox 96 04/23/24 07:35 FiO2 Intake & Output 04/22/24 04/23/24 04/23/24 18:59 06:59 18:59 Intake Total 120 1000 Output Total 0 0 Balance 120 1000 Intake: Intake, IV Titration 1000 Amount 0.9% NaCl with KCl 20 Meq 900 /l 1,000 ml @ 75 mls/hr IV .[id number] MARIA VICTORIA Rx#: [id number] ceFAZolin 2 gm In Sodium 100 Chloride 0.9% 50 ml @ 100 mls/hr IVPB Q8H MARIA VICTORIA Rx#: [id number] Oral 120 Output: Drainage 0 0 Lower Back 0 0 Other: Voiding Method Toilet Toilet Toilet # Voids 3 2 2 - Exam In general patient is alert and oriented x 3 in no distress HEENT head normocephalic and atraumatic Neck is supple no JVD no goiter no lymphadenopathy no carotid bruit Chest examination is clear to auscultation no crackles no wheezing Cardiac exam reveals regular heart sounds S1 and S2 no gallops no murmurs Abdomen is soft nontender no organomegaly with normal bowel sounds Extremity exam reveals no edema no cyanosis or clubbing Neurological examination reveals no gross focal deficits - Labs CBC & Chem 7: 04/23/24 03:14 04/23/24 03:14 Labs: Abnormal Lab Results - Last 24 Hours (Table) 04/23/24 04/23/24 Range/Units 03:14 03:14 RBC 2.38 L (3.80-5.40) m/uL Hgb 7.3 L (11.4-16.0) gm/dL Hct 24.1 L (34.0-46.0) % MCV 101.5 H (80.0-100.0) fL MCHC 30.1 L (31.0-37.0) g/dL Sodium 135 L (137-145) mmol/L Chloride 110 H (98-107) mmol/L Glucose 110 H (74-99) mg/dL Calcium 7.8 L (8.4-10.2) mg/dL Assessment and Plan Assessment: 1. Status post L2 to pelvis decompressionWith Dr. Madrigal on 04/16/2024 2. Postop operative abdominal distention and pain. 3. History of thyroid cancer 4. History of hyperlipidemia 5. History of essential hypertension 6. History of osteoporosis Thank you for this consultation we'll continue to follow patient closely throughout stay DVT prophylaxis SCDs Repeat labs ordered for a.m.
[2024-04-23] MEDS: MAGNESIUM CITRATE 296 ML BOTTLE PO ONE (15:06)
[2024-04-23 15:34] LABS: % Iron Saturation 9.96 (12.00-45.00)
[2024-04-24 08:41] LABS: Basophils # (A) 0.04 X 10*3/uL (0.00-0.10); Basophils % (A) 0.9 %; Eosinophils # (A) 0.21 X 10*3/uL (0.04-0.35); Eosinophils % (A) 4.5 %; HCT 24.5 % (37.2-46.3); HGB 7.7 g/dL (12.0-15.0); Lymphocytes # (A) 1.06 X 10*3/uL (0.90-5.00); Lymphocytes % (A) 22.9 %; MCH 31.7 pg (27.0-32.0); MCHC 31.4 g/dL (32.0-37.0); MCV 100.8 FL (80.0-97.0); Mean Platelet Volume 10.3 FL (9.5-12.2); Monocytes # (A) 0.47 X 10*3/uL (0.20-1.00); Monocytes % (A) 10.2 %; NRBC Per 100 WBC 0.02 X 10*3/uL (0.00-0.01); Neutrophils # (A) 2.71 X 10*3/uL (1.80-7.70); Neutrophils % (A) 58.7 %; Platelet Count 236 X 10*3/uL (140-440); RBC 2.43 X 10*6/uL (4.10-5.20); RDW 14.3 % (11.5-14.5); WBC 4.62 X 10*3/uL (4.50-10.00)
[2024-04-24 08:51] VITALS: BMI 32.0
--- NOTE | 2024-04-24 08:53 | P.PN ---
Subjective Progress Note Date: 04/24/24 Principal diagnosis: 1. L2-S1 spondylosis with stenosis, severe 2. Bilateral lower extremity weakness 3. Neurogenic claudication Patient seen and examined this morning. Patient is sitting up in chair at bedside. She states she is tolerating activity well ambulating to restroom and throughout the hallway. Patient states she has not been seen by physical therapy over the past few days. Surgical incision to the lumbar spine, dressing is clean dry and intact. Hemoglobin is stable this morning at 7.7 and hematocrit at 24.5. Pateint reports she is passing gas, no BM at this time. Multiple stool softeners and laxatives provided. Patient is cleared from orthopedic standpoint for discharge home with home care. Objective - Vital Signs Vital signs: Vital Signs Temp 99.3 F 04/24/24 00:27 Pulse 68 04/24/24 00:27 Resp 16 04/24/24 00:27 BP 106/61 04/24/24 00:27 Pulse Ox 93 L 04/24/24 00:27 FiO2 Intake & Output 04/23/24 04/24/24 04/24/24 18:59 06:59 18:59 Other: Voiding Method Toilet Toilet # Voids 3 1 - Exam Physical Examination General: The patient is awake and alert, in no acute distress Skin: Skin is warm and dry with no obvious rashes or lesions. Surgical in cision to the lumbar spine, dressing is clean dry and intact. Eye: Pupils are equal, round and reactive to light, extra-ocular movements are intact; there is normal conjunctiva bilaterally. Neck: The neck is supple, there is no tenderness and ROM intact. Cardiovascular: There is a regular rate and rhythm. No murmur, rub or gallop is appreciated. Respiratory: Lungs are clear to auscultation, respirations are non-labored, breath sounds are equal. Gastrointestinal: Soft, non-distended, non-tender abdomen. Back: There is no tenderness to palpation in the midline, paralumbar, paratho racic or buttocks region. There is no obvious deformity . Musculoskeletal: ROM limited secondary to pain and stiffness from surgical procedure. Muscle strength in all major muscle groups of bilateral upper extremities 5/5, bilateral lower extremities 4/5. Neurological: CN 2-12 intact. There are no obvious motor or sensory deficits. Movement and coordination equal and intact. Sensory exam to light touch intact C5-T1 and intact from L2-S1. Reflexes 2/4 in bilateral upper and lower extremities. Negative Hoffmans, babinski, and clonus signs. Psychiatric: Cooperative, appropriate mood & affect, normal judgment. - Labs CBC & Chem 7: 04/24/24 05:35 04/23/24 03:14 Labs: Abnormal Lab Results - Last 24 Hours (Table) 04/23/24 04/24/24 Range/Units 03:14 05:35 RBC 2.43 L (4.10-5.20) X 10*6/uL Hgb 7.7 L (12.0-15.0) g/dL Hct 24.5 L (37.2-46.3) % MCV 100.8 H (80.0-97.0) FL MCHC 31.4 L (32.0-37.0) g/dL Immature Gran # 0.13 H (0.00-0.04) X 10*3/uL NRBC/100 WBC Diff 0.02 H (0.00-0.01) X 10*3/uL Iron 24 L (50-170) UG/DL % Saturation 9.96 L (12.00-45.00) Transferrin 172.0 L (204.0-354.0) mg/dL Assessment and Plan Assessment: Postop day 4 : Hematoma evacuation with irrigation; Postop day 8: [id number] decompression and fusion 1. L2-S1 spondylosis with stenosis, severe 2. Bilateral lower extremity weakness 3. Neurogenic claudication Plan: -Appreciate product support consultant and team management. -Activity: Ambulate QID, OOB all meals, up and about, limit lifting bending twisting to less than 5 lbs. Use walker or cane if needed for stability. -Daily PT/OT, increase ambulation strength and balance. -Brace when up and about, not needed in bed or chair -Pain control: Adequate at this time -Meds: reviewed -GI ppx: senna, Miralax -DVT PPX: Mechanical -Hygiene: Patient may shower today, current dressing may be removed in 2 days or sooner if dressing is soiled. May leave open to air once there is no drainage. Keep incision clean and dry. -Encourage IS 10x/hr -Dispo: Discharge home with homecare today *I reviewed and discussed this case with my attending Dr. Madrigal, whom has reviewed this chart and films and is in agreement with assessment and plan of care as outlined above. I have personally seen and examined the patient, performed the documentation and the assessment and plan as written. Number of minutes spent on the visit: 20m.
--- NOTE | 2024-04-24 08:55 | P.DS ---
Providers Date of admission: 04/16/24 05:42 Expected date of discharge: 04/24/24 Attending physician: Roverto Madrigal DO Consults: 04/16/24 13:10 Consult Physician Routine Consulting Provider: Micheline Kelly Consult Reason/Comments: medical management s/p L2-pelvis decompr fusion Do you want consulting provider notified?: Yes Primary care physician: Linda Watkins Hospital Course: Hospital Course: The patient was evaluated preoperatively and found to have the diagnosis of Lumbar spondylosis with stenosis. They underwent appropriate preoperative care and were willing to undergo the intended procedure. They underwent a successful L2-S1 decompression and fusion, were recovered appropriately and sent to the floor. While on the floor they worked with physical therapy, occupational therapy and nursing to enhance their recovery experience. Their pain was well controlled through their stay and they were started on appropriate medications, DVT ppx modalities, activity and dietary needs. Daily labs were monitored closely, and transfusions were only used when necessary. Medicine as well as other consulting services have made their input and have helped with our team ap proach and multidisciplinary care. PT milestones have been met and passed and they have made the recommendation of home with homecare for this patient and treating providers agree with this care path. The patient will be discharged home with appropriate medications, instructions and follow-up information and in stable condition. Assessment: L2 to S1 spondylosis with stenosis and neurogenic claudication Patient Condition at Discharge: Good Plan - Discharge Summary Discharge Rx Participant: No New Discharge Prescriptions: New Cyclobenzaprine [Flexeril] 10 mg PO TID #21 tab Gabapentin 300 mg PO TID #30 cap Sennosides/Docusate Sodium [Senna Plus 8.6-50 mg Softgel] 1 each PO DAILY #20 capsule HYDROcodone/APAP 10-325MG [[place] 10-325] 1 tab PO Q4-6H PRN #40 tab PRN Reason: Pain cefaDROXiL [Duricef] 500 mg PO Q12HR 5 Days #10 cap No Action Cholecalciferol [Vitamin D3 (25 Mcg = 1000 Iu)] 1,000 unit PO DAILY Levothyroxine Sodium [Synthroid] 125 mcg PO HS Lovastatin 40 mg PO HS Lisinopril/Hydrochlorothiazide [Lisinopril-Hctz 20-25 mg Tab] 1 tab PO HS Cinnamon Bark [Cinnamon] 1,200 mg PO DAILY Tart [place] 1 tab PO DAILY Ubidecarenone [Co Q-10] 200 mg PO DAILY Ascorbic Acid [Vitamin C] 1,000 mg PO DAILY Calcium Carbonate 500 mg PO DAILY Multivitamins, Thera [Multivitamin (formulary)] 1 tab PO DAILY Joint Advanced Health Complex 1 dose PO DAILY Aspirin [Adult Low Dose Aspirin EC] 81 mg PO DAILY Zinc 50 mg PO DAILY Lutein 40 mg PO DAILY Biotin [Pikj-Mysp-Wcjug] 10,000 mcg PO DAILY Gabapentin [Neurontin] 300 mg PO TID Discharge Medication List Cholecalciferol [Vitamin D3 (25 Mcg = 1000 Iu)] 1,000 unit PO DAILY 11/13/15 [History] Levothyroxine Sodium [Synthroid] 125 mcg PO HS 11/13/15 [History] Lisinopril/Hydrochlorothiazide [Lisinopril-Hctz 20-25 mg Tab] 1 tab PO HS 11/13/15 [History] Lovastatin 40 mg PO HS 11/13/15 [History] Aspirin [Adult Low Dose Aspirin EC] 81 mg PO DAILY 03/10/22 [History] Cinnamon Bark [Cinnamon] 1,200 mg PO DAILY 03/10/22 [History] Lutein 40 mg PO DAILY 03/10/22 [History] Tart [place] 1 tab PO DAILY 03/10/22 [History] Zinc 50 mg PO DAILY 03/10/22 [History] Ascorbic Acid [Vitamin C] 1,000 mg PO DAILY 04/11/24 [History] Biotin [Flrx-Nwur-Wqzqj] 10,000 mcg PO DAILY 04/11/24 [History] Calcium Carbonate 500 mg PO DAILY 04/11/24 [History] Gabapentin [Neurontin] 300 mg PO TID 04/11/24 [History] Joint Advanced Health Complex 1 dose PO DAILY 04/11/24 [History] Multivitamins, Thera [Multivitamin (formulary)] 1 tab PO DAILY 04/11/24 [History] Ubidecarenone [Co Q-10] 200 mg PO DAILY 04/11/24 [History] Cyclobenzaprine [Flexeril] 10 mg PO TID #21 tab 04/19/24 [Rx] Gabapentin 300 mg PO TID #30 cap 04/19/24 [Rx] Sennosides/Docusate Sodium [Senna Plus 8.6-50 mg Softgel] 1 each PO DAILY #20 capsule 04/19/24 [Rx] cefaDROXiL [Duricef] 500 mg PO Q12HR 5 Days #10 cap 04/19/24 [Rx] HYDROcodone/APAP 10-325MG [[place] 10-325] 1 tab PO Q4-6H PRN #40 tab 04/22/24 [Rx] Follow up Appointment(s)/Referral(s): Linda Watkins MD [Primary Care Provider] - 1 Week Roverto Madrigal DO [Doctor of Osteopathic Medicine] - 05/01/24 1:30 pm [facility] Visiting Nurse, [NON-STAFF] - As Needed Activity/Diet/Wound Care/Special Instructions: Spine Discharge and Recovery Instructions Date of Surgery: 04/16/2024 Diagnosis: L2 to S1 spondylosis with stenosis and neurogenic claudication Procedure: L2 to pelvis decompression fusion Medications: see list All medication refills should be obtained through your primary care doctor or your clinic spine surgeon. Please discuss prescription refills at your follow up appointment. Do not call the hospital for medication refills. Activity: [Encourage ambulation with assist of walker] [OOB 6-8x daily] [PT/OT daily work on balance, strength and mobility] [Up in chair with all meals, OOB all meals] [Shower daily] Brace: Wear lumbar brace when up and about at all times. Do not wear while sleeping or showering. May take breaks from brace while sitting or laying and resting. Dressing: Leave your dressing in place for a total of 3 days post operatively. Then you may remove your dressing and leave open to air. Keep the area clean and if not able to keep area clean, then cover with sterile gauze and tape. Showering: You may shower 3 days after your procedure allowing soap and water to run over incision. Do not scrub. Do not soak. Blot dry. Follow up: Please confirm a follow up appointment with your surgeon 2 weeks post operatively. Please make an appointment to follow up with your PCP in 1-2 weeks after surgery for evaluation 3 phase, 3-week plan POST OP WEEKS 1-3 1. Lifting/carrying/pushing/pulling limited to less than 5 pounds. 2. Do not sit for longer than 15 minutes at one time. Get up and walk around. Prolonged sitting is NOT advised. If you lay down, see if you can tolerate laying down on you front (belly side) 3. Walk for periods of 15 minutes = 1 mile but no longer; do it multiple times times each day. 4.Ice your low back after activity. POST OP WEEKS 3-6 1. Lifting limited to less than 20 pounds. 2. Do not sit for longer than 30 minutes at a time. Frequently change positions. Use a sit-to stand workstation or take frequent breaks from sitting if you have returned to work. 3. Walk for 30 minutes each day. If possible, do these three or more times a day POST OP WEEKS 6+ At your 6-week appointment we will give you a physical therapy referral to focus on a core stabilization and strengthening program. You should also work on leg & buttock strengthening, hamstring & quadriceps stretching, and continue a low impact aerobic activity program such as swimming, walking, or riding a stationary bicycle. During the initial 6 weeks after your surgery, you are at the highest risk of re-injuring your spine. You should generally avoid BLTs (bending, lifting and twisting combination motions) and follow the above guidelines to reduce the chance of reinjury. You can anticipate post op appointments in our office at approximately 3 weeks and 6 weeks after your surgery. INCISION CARE: If your incision is not draining you do NOT need to cover it with a dressing. Keep your incision clean, dry and intact. In most cases, we apply skin glue, felipa or sutures to the incision at the time of surgery. This will be like a crust or have the appearance of a scab and will fall off in time on its own. The stitches or felipa need to be removed at 3 weeks post op appointment. You may begin to shower 3 days after surgery (this allows the glue to bridges well). However, please avoid scrubbing the incision site or peeling off any of the skin glue. This will ensure optimal healing of your incision. Also, during this time avoid soaking the incision area in water - this includes swimming pools, hot tubs or baths. No ointments, lotions or oils on the incision until your surgeon allows. Leave felipa, sutures or glue in place. Neurological dysfunction that comes on suddenly can also be a sign of a stroke. Below some common symptoms of a stroke are listed: B - balance difficulty such as sudden onset walking or leaning to one side - NEW E - eye problem such as sudden double vision or trouble seeing on one side - NEW F - Facial weakness or numbness on one side - NEW A - Arm or leg weakness or numbness on one side - NEW S - Slurred speech or difficulty with word finding - NEW T - Time is BRAIN! Call 911 as soon as you recognize these symptoms Diet: Consume a regular diet rich in vegetables and lean protein such as chicken or fish. You should consume in a ratio of approximately 20% fats|40% carbohydrates|40%protein. Vegetables, sweet potatoes, brown rice or quinoa are examples of good carbohydrates. Chips, white bread, cookies and sweets/sugar are examples of bad carbohydrates. Limit your bad carbs, go wild with good carbs. 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 (1) Get Active. Physical activity can help people lose weight, control high blood pressure and cholesterol, feel emotionally better, and sleep better. (2) Control Cholesterol. Avoid a diet high in saturated fat, trans fat, & cholesterol. Limit whole milk & cream, ice cream, butter, egg yolks, processed meats (like sausage and hot dogs), and fatty meats. Choose healthy foods that are low in saturated fat, trans fat and cholesterol which include: Fruits and vegetables, fiber rich grain products (like whole grain pasta and brown rice), lean meat such as chicken, fish, nuts, seeds, and legumes. (3) Eat Better. Eat small portions. Shop at the grocery with a list and do not stray from it. Tips for a healthy diet include: Limit sodium intake to less than 1500mg daily, avoid prepackaged, processed, and fast foods, choose a diet rich in fruits, vegetables, and whole grain, high fiber foods, and limit saturated & cholesterol in your diet. (4) Manage Blood Pressure. If you have high blood pressure, you should have a cuff at home so that you can check your blood pressure regularly. Be sure you have a good cuff. An arm one is generally better than a wrist one. Bring the cuff to a doctor's appointment to validate that the measurements that your cuff are taking are accurate. Take your blood pressure twice daily when you are sitting down and relaxing. Record the numbers in a log and bring this log with you to your doctors' appointments. (5) Lose Weight if your BMI is above 25. A healthy BMI is between 19-25. To calculate Your BMI, you may use a Standard BMI Calculator on the NIH BMI website: <www.nhlbi.nih.gov/guidelines/obesity/BMI/bmicalc.htm>. Weigh oneself daily. If you are overweight, set a goal to lose weight. A pound a week loss if needed is a good target. (6) Reduce Blood Sugar. Limit foods and liquids with "added sugars." (Added sugars include sucrose, fructose, glucose, maltose, dextrose, high fructose corn syrup, corn syrup, concentrated fruit juice and honey). (7) Stop Smoking. If you smoke, quitting smoking is one of the best things that you can do for your health. Smoking increases your risk of heart attack, stroke, and peripheral vascular disease, which is a build-up of plaque in your arteries. Please discard all the cigarettes and lighters in your house. Have a plan for what you will do when you have the urge to smoke. Direct and second- hand smoke shortens your life as well as the lives of your family, friends and others around you. For your health and the health of those around you, please consider quitting! Proper Bending Body Mechanics: Maintain a wide stance with one foot slightly in front of the other. Keep your back straight. Bend utilizing the strength in your hips and knees. Do not bend at the waist. Maintain the lifted object at your waist-level close to your body. Avoid lifting weight that causes immediately pain or pain anywhere in the body afterwards. Smoking/Nicotine If there was ever one thing that you could do to increase your overall health, decrease your risk of cardiovascular problems by about 39% the second you make the choice, it is to STOP SMOKING. Your body's most instant gratification is t he second you stop smoking. We have all heard the studies, read the articles but it is true, smoking is extremely bad for your overall health, and moreover it is detrimental to your bone health. Nicotine, IN ANY FORM, kills bone cells, prevents your body from healing fractures, and significantly prolongs healing after surgery. In spine surgery specifically, it increases your risk of not healing your bones to create a fusion and increases your risk of having a revision surgery due to this up to 60%. I know it is hard. I know it feels impossible. But there are ways. Take co ntrol of your life. We are here to help you through it. And when you are ready, ask us and we can direct you to help if you desire. Use the START Plan to Quit Smoking (please visit the Helpguide.org website listed below for more information): S = Set a quit date. Choose a date within the next 2 weeks, so you have enough time to prepare without losing your motivation to quit. If you mainly smoke at work, quit on the weekend, so you have a few days to adjust to the change. T = Tell family, friends, and co-workers that you plan to quit. Let your friends and family in on your plan to quit smoking and tell them you need their support and encouragement to stop. Look for a quit john who wants to stop smoking as well. You can help each other get through the rough times. A = Anticipate and plan for the challenges you'll face while quitting. Most people who begin smoking again do so within the first 3 months. You can help yourself make it through by preparing ahead for common challenges, such as nicotine withdrawal and cigarette cravings. R = Remove cigarettes and other tobacco products from your home, car, and work. Throw away all your cigarettes (no emergency pack!), lighters, ashtrays, and matches. Wash your clothes and freshen up anything that smells like smoke. Shampoo your car, clean your drapes and carpet, and steam your furniture. T = Talk to your doctor about getting help to quit. Your doctor can prescribe medication to help with withdrawal and suggest other alternatives. If you can't see a doctor, you can get many products over the counter at your local pharmacy or grocery store, including the nicotine patch, nicotine lozenges, and nicotine gum. Resources for Quitting Smoking: <https://www.[place].gov/documents/[facility]/Quit_Tobacco_Resources_for_patients_313 480_7.pdf> Supplementation: Take recommended dosages of Vitamin D and Calcium to help fortify your bones and help them to heal. See your health maintenance packet for dosages and recommended levels. DVT/VTE prophylaxis: You will be given compression stockings from the hospital. Wear these daily for the first two weeks after surgery. You may take them off at night. You may be prescribed a medication to help thin your blood. Take this as directed. If you are not prescribed this medication, early and frequent ambulation has been shown to be the best prophylaxis to deep vein thrombosis and sequelae related to this event. Discharge Disposition: HOME WITH HOME HEALTH SERVICES
[2024-04-24 09:12] LABS: ALT 29 U/L (8-44); AST 52 U/L (13-35); Albumin 3.2 g/dL (3.8-4.9); Albumin/Globulin Ratio 1.68 Ratio (1.60-3.17); Alkaline Phosphatase 66 U/L (41-126); BUN/Creat Ratio 13.57 Ratio (12.00-20.00); Blood Urea Nitrogen 9.5 mg/dL (9.0-27.0); Calcium 8.4 mg/dL (8.7-10.3); Carbon Dioxide 24.9 mmol/L (21.6-31.8); Chloride 104 mmol/L (96-109); Globulin 1.9 g/dL (1.6-3.3); Glucose 114 mg/dL (70-110); Potassium 4.7 mmol/L (3.5-5.5); Sodium 139 mmol/L (135-145); Total Bilirubin 0.3 mg/dL (0.3-1.2); Total Protein 5.1 g/dL (6.2-8.2)
[2024-04-24 09:47] VITALS: BP 136/69; PULSE 62; RESP 17; TEMP 97.6
--- NOTE | 2024-04-24 11:34 | P.PN ---
Subjective Progress Note Date: 04/24/24 This is a 78-year-old female patient of Dr. Watkins who presented for an electiveL2 pelvis decompression and fusion for lumbar stenosis with Dr. Madrigal on 04/16/2024.Patient has past medical history of hyperlipidemia, hypertension, thyroid disorder, thyroid cancer, DVT in 1977 chronic back pain.Postoperatively patient was noted to have abdominal distention. NG tube was placed and surgical service is consulted. According to patient she's had this issue for quite some time and has followed with GI services outpatient. At this time patient is currently sitting up in chair. Patient reports some pain to back. Patient denies any chest pain or shortness breath. Patient denies nausea and diarrhea. Patient deniesAny urinary burning or frequency On 04/18/2024 patient was seen and examined on the medical floor she is alert and oriented x 3 in no apparent distress she is still complaining of neck pain and low back pain otherwise she denies any complaints there is no fever or chills no headache or dizziness no chest pain no shortness of breath no cough no nausea or vomiting no abdominal pain no diarrhea no urinary symptoms On 04/19/2024 patient's alert and oriented 3. Patient still complaining about some back pain and weakness. Patient denies chest pain. Patient denies nausea vomiting or diarrhea. Patient denies any urinary burning or frequency. Current vital signs temp 98.1, heart rate 57, respiratory rate 19, blood pressure 121/66 with pulse ox 99% on room air On 04/20/2024 for patient is alert and oriented x 3. Patient having some increased pain this a.m. per patient plans today per surgical services for hematoma evacuation. Current vital signs Temp 97.5, heart rate 65, respiratory rate 18, blood pressure 129/66 with pulse ox 94% on room air On 04/21/2024 patient was seen and examined on the medical floor she is alert and oriented x 3 in no apparent distress, she is still complaining of back pain and requiring pain medications otherwise she denies any complaints there is no fever or chills no headache or dizziness no chest pain no shortness of breath no cough no nausea or vomiting no abdominal pain no diarrhea no urinary symptoms. Temperature is 98.4 pulse 60 respiration 18 blood pressure 106/61 pulse ox 93% on room air white blood count is 3.97 hemoglobin 7.6 platelet count 136. Patient underwent incision and drainage of the lumbar spine with irrigation and debridement of the skin and soft tissue with evacuation of hematoma yesterday. On 04/22/2024 patient was seen and examined on the medical floor she is alert and oriented x 3 in no apparent distress, she is still complaining of back pain and constipation otherwise she denies any complaints there is no fever or chills no headache or dizziness no chest pain no shortness of breath no cough no nausea or vomiting no abdominal pain no diarrhea no urinary symptoms. On 04/23/2024 patient's alert and oriented 3. Patient still having some back pain. Patient also complaining of constipation.Current vital signs temp 98.6, heart rate 69, respiratory rate 16, blood pressure 127/70 with pulse ox 96% on room air patient denies any nausea or vomiting. Hemoglobin low at 7.3 iron studies ordered On 04/24/2024 patient is alert and oriented times. Patient is still complaining of some constipation multiple laxatives have been ordered. Possible discharge home today per orthopedic servicesCurrent vital signs temp 97.6 heart rate 62Respiratory rate 17, blood pressure 136/69 pulse ox 96% on room air. Hemoglobin 7.7 iron counts low will order IV iron prior to discharge Objective - Vital Signs Vital signs: Vital Signs Temp 97.6 F 04/24/24 08:00 Pulse 62 04/24/24 08:00 Resp 17 04/24/24 08:00 BP 136/69 04/24/24 08:00 Pulse Ox 96 04/24/24 08:00 FiO2 Intake & Output 04/23/24 04/24/24 04/24/24 18:59 06:59 18:59 Weight 90 kg Other: Voiding Method Toilet Toilet # Voids 3 1 1 - Exam In general patient is alert and oriented x 3 in no distress HEENT head normocephalic and atraumatic Neck is supple no JVD no goiter no lymphadenopathy no carotid bruit Chest examination is clear to auscultation no crackles no wheezing Cardiac exam reveals regular heart sounds S1 and S2 no gallops no murmurs Abdomen is soft nontender no organomegaly with normal bowel sounds Extremity exam reveals no edema no cyanosis or clubbing Neurological examination reveals no gross focal deficits - Labs CBC & Chem 7: 04/24/24 05:35 04/24/24 05:35 Labs: Abnormal Lab Results - Last 24 Hours (Table) 04/23/24 04/24/24 04/24/24 Range/Units 03:14 05:35 05:35 RBC 2.43 L (4.10-5.20) X 10*6/uL Hgb 7.7 L (12.0-15.0) g/dL Hct 24.5 L (37.2-46.3) % MCV 100.8 H (80.0-97.0) FL MCHC 31.4 L (32.0-37.0) g/dL Immature Gran # 0.13 H (0.00-0.04) X 10*3/uL NRBC/100 WBC Diff 0.02 H (0.00-0.01) X 10*3/uL Glucose 114 H (70-110) mg/dL Calcium 8.4 L (8.7-10.3) mg/dL Iron 24 L (50-170) UG/DL % Saturation 9.96 L (12.00-45.00) Transferrin 172.0 L (204.0-354.0) mg/dL AST 52 H (13-35) U/L Total Protein 5.1 L (6.2-8.2) g/dL Albumin 3.2 L (3.8-4.9) g/dL Assessment and Plan Assessment: 1. Status post L2 to pelvis decompressionWith Dr. Madrigal on 04/16/2024 2. Postop operative abdominal distention and pain. 3. History of thyroid cancer 4. History of hyperlipidemia 5. History of essential hypertension 6. History of osteoporosis Thank you for this consultation we'll continue to follow patient closely throughout stay DVT prophylaxis SCDs Repeat labs ordered for a.m.
[2024-04-24] MEDS: SODIUM FERRIC GLUCONAT-SUCROSE 125 MG in SODIUM CHLORIDE 0.9% 100 ML IVPB ONE (11:35)
== END 2024-04-24 14:36 | disposition home health service (06) | DRG 454 ==
LOC: 2ORMAIN 05:42 → 4SSUR 14:29
PROVIDERS: ADMIT Orthopaedic Surgery; ATTEND Orthopaedic Surgery
PROC: 0SG1071 Fusion of 2 or more Lumbar Vertebral Joints with Autologous Tissue Substitute, Posterior Approach, Posterior Column, Open Approach (ICD-10-PCS; 2024-04-16)
PROC: 0SG30AJ Fusion of Lumbosacral Joint with Interbody Fusion Device, Posterior Approach, Anterior Column, Open Approach (ICD-10-PCS; 2024-04-16)
PROC: 0QS00ZZ Reposition Lumbar Vertebra, Open Approach (ICD-10-PCS; 2024-04-16)
PROC: 0SG3071 Fusion of Lumbosacral Joint with Autologous Tissue Substitute, Posterior Approach, Posterior Column, Open Approach (ICD-10-PCS; 2024-04-16)
PROC: 0QH304Z Insertion of Internal Fixation Device into Left Pelvic Bone, Open Approach (ICD-10-PCS; 2024-04-16)
PROC: 0QH204Z Insertion of Internal Fixation Device into Right Pelvic Bone, Open Approach (ICD-10-PCS; 2024-04-16)
PROC: 01NB0ZZ Release Lumbar Nerve, Open Approach (ICD-10-PCS; 2024-04-16)
PROC: 01NR0ZZ Release Sacral Nerve, Open Approach (ICD-10-PCS; 2024-04-16)
PROC: 0ST20ZZ Resection of Lumbar Vertebral Disc, Open Approach (ICD-10-PCS; 2024-04-16)
PROC: 0ST40ZZ Resection of Lumbosacral Disc, Open Approach (ICD-10-PCS; 2024-04-16)
PROC: 0SG804Z Fusion of Left Sacroiliac Joint with Internal Fixation Device, Open Approach (ICD-10-PCS; 2024-04-16)
PROC: 0SG704Z Fusion of Right Sacroiliac Joint with Internal Fixation Device, Open Approach (ICD-10-PCS; 2024-04-16)
PROC: 8E0WXBZ Computer Assisted Procedure of Trunk Region (ICD-10-PCS; 2024-04-16)
PROC: 0D9670Z Drainage of Stomach with Drainage Device, Via Natural or Artificial Opening (ICD-10-PCS; 2024-04-16)
PROC: 0SG10AJ Fusion of 2 or more Lumbar Vertebral Joints with Interbody Fusion Device, Posterior Approach, Anterior Column, Open Approach (ICD-10-PCS; principal; 2024-04-16 07:30)
PROC: 0QB00ZZ Excision of Lumbar Vertebra, Open Approach (ICD-10-PCS; 2024-04-20)
PROC: 0J9700Z Drainage of Back Subcutaneous Tissue and Fascia with Drainage Device, Open Approach (ICD-10-PCS; 2024-04-20)
DX: M47.26 Other spondylosis with radiculopathy, lumbar region (principal); D62 Acute posthemorrhagic anemia; L76.32 Postprocedural hematoma of skin and subcutaneous tissue following other procedure; I10 Essential (primary) hypertension; E89.0 Postprocedural hypothyroidism; M48.062 Spinal stenosis, lumbar region with neurogenic claudication; M25.78 Osteophyte, vertebrae; G47.8 Other sleep disorders; M48.07 Spinal stenosis, lumbosacral region; M81.0 Age-related osteoporosis without current pathological fracture; K59.00 Constipation, unspecified; R15.9 Full incontinence of feces; G89.29 Other chronic pain; M47.27 Other spondylosis with radiculopathy, lumbosacral region; E78.5 Hyperlipidemia, unspecified; Y83.8 Other surgical procedures as the cause of abnormal reaction of the patient, or of later complication, without mention of misadventure at the time of the procedure; Z96.643 Presence of artificial hip joint, bilateral; Z79.891 Long term (current) use of opiate analgesic; Z79.890 Hormone replacement therapy; Z79.82 Long term (current) use of aspirin; Z85.850 Personal history of malignant neoplasm of thyroid; Z86.718 Personal history of other venous thrombosis and embolism; Z87.891 Personal history of nicotine dependence; Z79.899 Other long term (current) drug therapy; Z88.0 Allergy status to penicillin; Z88.5 Allergy status to narcotic agent; Z86.018 Personal history of other benign neoplasm
CPT/HCPCS: 72100; 72131; 74019; 80048; 80053; 82805; 83540; 83550; 85025; 85027; 86850; 86900; 86901; 86920; 94760

== ENCOUNTER → 2024-08-23 | Outpatient (CLI) | payer MEDICARE ==
--- NOTE | 2024-08-26 18:15 | MM ---
Reason for Exam: Screening (asymptomatic). Last mammogram was performed 1 year(s) and 2 month(s) ago. Patient History: Menarche at age 15. First Full-Term at age 24. Left ovary removed at age 63. Right ovary removed at age 63. Hysterectomy at age 63. Postmenopausal. Benign Core Biopsy on the right side. 11/14/2002, Benign Stereotactic Core Biopsy on the right side. Maternal aunt had breast cancer, age 70. Maternal aunt had breast cancer, age 75. Daughter had breast cancer, age 31. Risk Values: Tyra 5 year model risk: 5.0%. NCI Lifetime model risk: 9.4%. Prior Study Comparison: 03/26/2021 Bilateral Screening Mammogram, [facility]. 03/29/2022 Bilateral MG 3D screening mammo w/cad, [facility]. 06/01/2023 Bilateral MG 3D screening mammo w/cad, [facility]. Tissue Density: There are scattered areas of fibroglandular density. Findings: Analyzed By CAD. Numerous benign bilateral round and well-seated calcifications. Microclip right breast from prior biopsy. Some new, typically benign round calcifications posterior superior left breast. There is no suspicious group of microcalcifications or new suspicious mass in either breast. Overall Assessment: Benign, BI-RAD 2 Management: Screening Mammogram of both breasts in 1 year. See note below in regards to patient's increased 5 year Tyra score. Patient should continue monthly self-breast exams. A clinical breast exam by your physician is recommended on an annual basis. This exam should not preclude additional follow-up of suspicious palpable abnormalities. Note on Tyra scores and lifetime risk: 1. A Tyra score greater than 3% is considered moderate risk. If this is the case, consider specialist referral to assess eligibility for a risk reducing agent. 2. If overall lifetime risk for the development of breast cancer is 20% or higher, the patient may qualify for future screening with alternating mammogram and breast MRI. [facility], , 08/26/2024 6:12 PM. Electronically signed and approved by: Noam Ramon M.D. Radiologist
== END | disposition home or self-care (01) ==
LOC: RADMAMWWP 13:51
PROVIDERS: ATTEND Family Medicine
CPT/HCPCS: 77063; 77067

== ENCOUNTER → 2024-11-13 | Outpatient (CLI) | payer MEDICARE ==
[2024-11-13 17:09] LABS: HCT 39.3 % (37.2-46.3); HGB 12.2 g/dL (12.0-15.0); MCH 30.7 pg (27.0-32.0); Mean Platelet Volume 10.9 FL (9.5-12.2); NRBC Per 100 WBC 0 X 10*3/uL (0.00-0.01); Platelet Count 218 X 10*3/uL (140-440); RBC 3.97 X 10*6/uL (4.10-5.20); RDW 14.2 % (11.5-14.5); WBC 5.38 X 10*3/uL (4.50-10.00)
[2024-11-13 17:10] LABS: Basophils # (A) 0.06 X 10*3/uL (0.00-0.10); Basophils % (A) 1.1 %; Eosinophils % (A) 1.9 %; Lymphocytes # (A) 1.08 X 10*3/uL (0.90-5.00); Lymphocytes % (A) 20.1 %; Monocytes # (A) 0.34 X 10*3/uL (0.20-1.00); Monocytes % (A) 6.3 %; Neutrophils # (A) 3.78 X 10*3/uL (1.80-7.70); Neutrophils % (A) 70.2 %
[2024-11-13 17:20] LABS: Blood Urea Nitrogen 15.8 mg/dL (9.0-27.0)
[2024-11-13 17:21] LABS: C Reactive Protein <0.30 mg/dL (0.00-0.80); Total Protein 6.8 g/dL (6.2-8.2)
[2024-11-13 17:35] LABS: Erythrocyte Sedimentation Rate 25 mm/Hr (0-30)
[2024-11-13 21:54] LABS: Creatinine 24 Hour,Urine 1.06 g/24hr (0.80-1.80); Total Protein 24 Hour,Urine 99.9 mg/24Hr (0.0-165.0); Total Volume 24 Hour,Urine 900 mL
[2024-11-14 15:15] LABS: C-ANCA <1:20 Titer (<1:20)
[2024-11-15 10:23] LABS: Albumin 4.08 g/dL (3.80-4.90); Gamma Globulin 0.69 g/dL (0.70-1.50); Protein, Total 6.8 g/dL (5.7-8.2)
== END | disposition home or self-care (01) ==
LOC: LABWHC1 11:15
PROVIDERS: ATTEND Psychiatry & Neurology Vascular Neurology
DX: R20.2 Paresthesia of skin (principal)
CPT/HCPCS: 36415; 81050; 82565; 82570; 82607; 83036; 84155; 84156; 84165; 84166; 84520; 85025; 85652; 86038; 86140; 86255; 86334; 86592

== ENCOUNTER 2024-12-01 13:20 | Emergency (ER) | payer MEDICARE ==
[2024-12-01 13:25] VITALS: TEMP 96.7
--- NOTE | 2024-12-01 13:55 | ED ---
General Adult HPI - General Source: patient, RN notes reviewed, old records reviewed Mode of arrival: ambulatory Limitations: no limitations <Adam Gutierrez - Last Filed: 12/01/24 16:14> - General Source: patient, RN notes reviewed, old records reviewed Mode of arrival: ambulatory Limitations: no limitations <Adam Yo - Last Filed: 12/01/24 17:28> - General Chief complaint: Dizziness Stated complaint: sent by urgent care-Low heart rate Time Seen by Provider: 12/01/24 13:35 - History of Present Illness Initial comments: This is a 79-year-old female who presents to the emergency department stating that she was at the urgent care recently and diagnosed with urinary tract infection but when she was there her heart rate was 43 and they told her to go to the emergency department. Patient states she did not go that day and waited 2 days to go and since then she says she feels dizzy when she walks not when she is going to pass out but just having to grab onto something to move around. Patient states she does have a history of vertigo. Patient denies any chest pain or palpitations. Patient denies any shortness of breath or difficulty breathing. Patient has any fever chills. Patient Nuys any abdominal pain or recent nausea vomiting diarrhea (Adam Gutierrez) 79 m female presented today for evaluation of low heart rate. Patient has no other known significant symptoms think she did have a recent diagnosis of urinary tract infection but when seen by primary care had a low heart rate and was told to come to the hospital she has not come in currently feels a little dizzy (Adam Yo) - Related Data Home Medications Medication Instructions Recorded Confirmed Cholecalciferol [Vitamin D3 (25 1,000 unit PO DAILY 11/13/15 04/16/24 Mcg = 1000 Iu)] Levothyroxine Sodium [Synthroid] 125 mcg PO HS 11/13/15 04/16/24 Lisinopril/Hydrochlorothiazide 1 tab PO HS 11/13/15 04/16/24 [Lisinopril-Hctz 20-25 mg Tab] Lovastatin 40 mg PO HS 11/13/15 04/16/24 Aspirin [Adult Low Dose Aspirin EC] 81 mg PO DAILY 03/10/22 04/16/24 Cinnamon Bark [Cinnamon] 1,200 mg PO DAILY 03/10/22 04/16/24 Lutein 40 mg PO DAILY 03/10/22 04/16/24 Tart [place] 1 tab PO DAILY 03/10/22 04/16/24 Zinc 50 mg PO DAILY 03/10/22 04/16/24 Ascorbic Acid [Vitamin C] 1,000 mg PO DAILY 04/11/24 04/16/24 Biotin [Khwd-Hlxn-Injfh] 10,000 mcg PO DAILY 04/11/24 04/16/24 Calcium Carbonate 500 mg PO DAILY 04/11/24 04/16/24 Gabapentin [Neurontin] 300 mg PO TID 04/11/24 04/16/24 Joint Advanced Health Complex 1 dose PO DAILY 04/11/24 04/16/24 Multivitamins, Thera [Multivitamin 1 tab PO DAILY 04/11/24 04/16/24 (formulary)] Ubidecarenone [Co Q-10] 200 mg PO DAILY 04/11/24 04/16/24 Previous Rx's Medication Instructions Recorded Cyclobenzaprine [Flexeril] 10 mg PO TID #21 tab 04/19/24 Gabapentin 300 mg PO TID #30 cap 04/19/24 Sennosides/Docusate Sodium [Senna 1 each PO DAILY #20 capsule 04/19/24 Plus 8.6-50 mg Softgel] cefaDROXiL [Duricef] 500 mg PO Q12HR 5 Days #10 cap 04/19/24 HYDROcodone/APAP 10-325MG [[place] 1 tab PO Q4-6H PRN #40 tab 04/22/24 10-325] Meclizine [Antivert] 25 mg PO TID #20 tab 12/01/24 Allergies Allergy/AdvReac Type Severity Reaction Status Date / Time amoxicillin [From Augmentin] AdvReac Nausea & Verified 12/01/24 13:25 Vomiting clavulanic acid AdvReac Nausea & Verified 12/01/24 13:25 [From Augmentin] Vomiting morphine AdvReac Nausea & Verified 12/01/24 13:25 Vomiting tramadol AdvReac Nausea & Verified 12/01/24 13:25 Vomiting Review of Systems ROS Other: All systems not noted in ROS Statement are negative. <Adam Gutierrez - Last Filed: 12/01/24 16:14> ROS Other: All systems not noted in ROS Statement are negative. <SanazAdam B - Last Filed: 12/01/24 17:28> ROS Statement: Those systems with pertinent positive or pertinent negative responses have been documented in the HPI. Past Medical History Past Medical History: Hyperlipidemia, Hypertension, Thyroid Disorder Additional Past Medical History / Comment(s): VERTIGO History of Any Multi-Drug Resistant Organisms: ESBL Date of last positivie culture/infection: 06/06/23 MDRO Source:: Urine Past Surgical History: Bladder Surgery, Cholecystectomy, Hernia Repair, Hysterectomy, Orthopedic Surgery, Tonsillectomy, Tubal Ligation Additional Past Surgical History / Comment(s): THYROIDECTOMY. RT ROTATOR CUFF & SHOULDER SX.07-29-16 TOTAL RT HIP Past Anesthesia/Blood Transfusion Reactions: Postoperative Nausea & Vomiting (PONV) Additional Past Anesthesia/Blood Transfusion Reaction / Comment(s): NO HX BLOOD TRANSFUSION Past Psychological History: No Psychological Hx Reported Smoking Status: Former smoker Past Alcohol Use History: None Reported Past Drug Use History: None Reported - Past Family History Daughter(s) Family Medical History: Cancer Additional Family Medical History / Comment(s): BREAST CANCER, AT AGE 37 YR. Father Family Medical History: Diabetes Mellitus Additional Family Medical History / Comment(s): AICD Mother Family Medical History: Hyperlipidemia, Hypertension Additional Family Medical History / Comment(s): GLAUCOMA,MAC DEGENERATION, BOWEL RESECTION/COLOSTOMY D/T OBSTRUCTION <Adam Gutierrez - Last Filed: 12/01/24 16:14> General Exam Limitations: no limitations <Adam Gutierrez - Last Filed: 12/01/24 16:14> General appearance: alert, in no apparent distress Head exam: Present: atraumatic, normocephalic, normal inspection Eye exam: Present: normal appearance, PERRL, EOMI. Absent: scleral icterus, conjunctival injection, periorbital swelling ENT exam: Present: normal exam, mucous membranes moist Neck exam: Present: normal inspection. Absent: tenderness, meningismus, lymphadenopathy Respiratory exam: Present: normal lung sounds bilaterally. Absent: respiratory distress, wheezes, rales, rhonchi, stridor Cardiovascular Exam: Present: normal rhythm, bradycardia, normal heart sounds. Absent: systolic murmur, diastolic murmur, rubs, gallop, clicks GI/Abdominal exam: Present: soft, normal bowel sounds. Absent: distended, tenderness, guarding, rebound, rigid Extremities exam: Present: normal inspection, full ROM, normal capillary refill. Absent: tenderness, pedal edema, joint swelling, calf tenderness Back exam: Present: normal inspection Neurological exam: Present: alert, oriented X3, CN II-XII intact Psychiatric exam: Present: normal affect, normal mood Skin exam: Present: warm, dry, intact, normal color. Absent: rash <Adam Yo - Last Filed: 12/01/24 17:28> - General Exam Comments Initial Comments: GENERAL: Patient is well-developed and well-nourished. Patient is nontoxic and well- hydrated and is in mild distress. ENT: Neck is soft and supple. No significant lymphadenopathy is noted. Oropharynx is clear. Moist mucous membranes. Neck has full range of motion without eliciting any pain. EYES: The sclera were anicteric and conjunctiva were pink and moist. Extraocular movements were intact and pupils were equal round and reactive to light. Eyelids were unremarkable. PULMONARY: Unlabored respirations. Good breath sounds bilaterally. No audible rales rhonchi or wheezing was noted. CARDIOVASCULAR: There is a regular rate and rhythm without any murmurs gallops or rubs. ABDOMEN: Soft and nontender with normal bowel sounds. SKIN: Skin is clear with no lesions or rashes and otherwise unremarkable. NEUROLOGIC: Patient is alert and oriented x3. Cranial nerves II through XII are grossly intact. Motor and sensory are also intact. Normal speech, volume and content. Symmetrical smile. Finger-nose testing is normal bilaterally MUSCULOSKELETAL: Normal extremities with adequate strength and full range of motion. LYMPHATICS: No significant lymphadenopathy is noted PSYCHIATRIC: Normal psychiatric evaluation. (Adam Gutierrez) Course <Adam Yo - Last Filed: 12/01/24 17:28> Vital Signs 12/01/24 12/01/24 12/01/24 13:21 14:04 14:06 Temperature 96.7 F L Pulse Rate 59 L Pulse Rate [ 50 L 52 L Cloth Painter ] Respiratory 16 18 18 Rate Blood Pressure 146/69 Blood Pressure 108/41 [Right Arm Supine] Blood Pressure 102/43 [Sitting] Blood Pressure [Standing] O2 Sat by Pulse 98 Oximetry 12/01/24 14:07 Temperature Pulse Rate Pulse Rate [ 56 L Cloth Painter ] Respiratory 18 Rate Blood Pressure Blood Pressure [Right Arm Supine] Blood Pressure [Sitting] Blood Pressure 105/85 [Standing] O2 Sat by Pulse Oximetry - Reevaluation(s) Reevaluation #1: 12/01/24 17:28 Medical records reviewed (Adam Yo) Reevaluation #2: 12/01/24 17:28 Patient asymptomatic here in the ER normal blood pressure able to ambulate without difficulty (Adam Yo) Medical Decision Making - Lab Data Result diagrams: 12/01/24 14:03 12/01/24 14:03 <Adam Gutierrez - Last Filed: 12/01/24 16:14> - Lab Data Result diagrams: 12/01/24 14:03 12/01/24 14:03 - Radiology Data Radiology results: report reviewed (CT brain and CTA head neck negative for acute disease), image reviewed <Adam Yo - Last Filed: 12/01/24 17:28> - Medical Decision Making EKG is interpreted by myself but EKG shows a sinus bradycardia 51 bpm TN was 198 QRS is 87 QT interval is 408 QTc is 386. Patient's EKG shows no ST segment elevation or depression Was pt. sent in by a medical professional or institution ([facility], ACID LEVELER, urgent care, hospital, or senior living...) When possible be specific @ -No Did you speak to anyone other than the patient for history (EMS, parent, family, police, friend...)? What history was obtained from this source @ -No Did you review nursing and triage notes (agree or disagree)? Why? @ -I reviewed and agree with nursing and triage notes Were old charts reviewed (outside hosp., previous admission, EMS record, old EKG, old radiological studies, urgent care reports/EKG's, senior living records)? Report findings @ -No old charts were reviewed Differential Diagnosis? @ -Differential Dizziness: Benign paroxysmal positional Vertigo, Meniere's disease, otitis media, acoustic neuroma, vertebrobasilar insufficiency, cerebellar stroke, encephalitis, hypovolemic, arrhythmia, coronary artery syndrome, anemia, this is not meant to be an all-inclusive list EKG interpreted by me (3pts min.). @ -As above X-rays interpreted by me (1pt min.). @ -Chest x-ray shows no acute abnormality CT interpreted by me (1pt min.). @ -None done U/S interpreted by me (1pt. min.). @ -None done What testing was considered but not performed or refused? (CT, X-rays, U/S, labs)? Why? @ -None What meds were considered but not given or refused? Why? @ -None Did you discuss the management of the patient with other professionals (professionals i.e. DrYves, PA, ACID LEVELER, lab, RT, psych nurse, older adult social work specialist, operations and maintenance technician, teacher, forward air controller/air officer, bilingual patient support caseworker)? Give summary @ -No Was smoking cessation discussed for >3mins.? @ -No Was critical care preformed (if so, how long)? @ -No Were there social determinants of health that impacted care today? How? (Homelessness, low income, unemployed, alcoholism, drug addiction, transportation, low edu. Level, literacy, decrease access to med. care, custodial, rehab)? @ -No Was there de-escalation of care discussed even if they declined (Discuss DNR or withdrawal of care, Hospice)? DNR status @ -No What co-morbidities impacted this encounter? (DM, HTN, Smoking, COPD, CAD, Cancer, CVA, ARF, Chemo, Hep., AIDS, mental health diagnosis, sleep apnea, mo rbid obesity)? @ -None Was patient admitted / discharged? Hospital course, mention meds given and ro tanisha, prescriptions, significant lab abnormalities, going to OR and other pertinent info. @ -Patient was given a liter and half of fluids and was feeling better. Patient also was given Antivert. Also was bradycardic in the 50s and once got down to 48. Patient's symptoms do not seem to correlate to the bradycardia but patient will follow-up. Undiagnosed new problem with uncertain prognosis? @ -No Drug Therapy requiring intensive monitoring for toxicity (Heparin, Nitro, Insulin, Cardizem)? @ -No Were any procedures done? @ -No Diagnosis/symptom? @ -Bradycardia Acute, or Chronic, or Acute on Chronic? @ -Acute Uncomplicated (without systemic symptoms) or Complicated (systemic symptoms)? @ -Complicated Side effects of treatment? @ -No Exacerbation, Progression, or Severe Exacerbation? @ -No Poses a threat to life or bodily function? How? (Chest pain, [place], TN, pneumonia, PE, COPD, DKA, ARF, appy, cholecystitis, CVA, Diverticulitis, Homicidal, Suicidal, threat to staff... and all critical care pts) @ -No Diagnosis/symptom? @ -Dizziness Acute, or Chronic, or Acute on Chronic? @ -Acute Uncomplicated (without systemic symptoms) or Complicated (systemic symptoms)? @ -Uncomplicated Side effects of treatment? @ -None Exacerbation, Progression, or Severe Exacerbation] @ -No Poses a threat to life or bodily function? @ -No (Adam Gutierrez) 79 female here for low heart rate with normal blood pressures. Patient has sinus bradycardia on EKG, patient can follow-up as an outpatient (Adam Yo) - Lab Data Lab Results 12/01/24 12/01/24 12/01/24 Range/Units 14:03 14:03 14:03 WBC 12.9 H (3.8-10.6) k/uL RBC 4.10 (3.80-5.40) m/uL Hgb 13.0 (11.4-16.0) gm/dL Hct 39.4 (34.0-46.0) % MCV 96.2 (80.0-100.0) fL MCH 31.7 (25.0-35.0) pg MCHC 33.0 (31.0-37.0) g/dL RDW 14.3 (11.5-15.5) % Plt Count 226 (150-450) k/uL MPV 7.8 Neutrophils % 81 % Lymphocytes % 12 % Monocytes % 4 % Eosinophils % 2 % Basophils % 0 % Neutrophils # 10.5 H (1.3-7.7) k/uL Lymphocytes # 1.6 (1.0-4.8) k/uL Monocytes # 0.6 (0-1.0) k/uL Eosinophils # 0.2 (0-0.7) k/uL Basophils # 0.0 (0-0.2) k/uL Sodium 137 (137-145) mmol/L Potassium 4.9 (3.5-5.1) mmol/L Chloride 102 (98-107) mmol/L Carbon Dioxide 23 (22-30) mmol/L Anion Gap 12 mmol/L BUN 48 H (7-17) mg/dL Creatinine 1.57 H (0.52-1.04) mg/dL Est GFR (CKD-EPI)AfAm 36 (>60 ml/min/1.73 sqM) Est GFR (CKD-EPI)NonAf 32 (>60 ml/min/1.73 sqM) Glucose 94 (74-99) mg/dL Calcium 9.8 (8.4-10.2) mg/dL Magnesium 2.3 (1.6-2.3) mg/dL Total Bilirubin 0.6 (0.2-1.3) mg/dL AST 28 (14-36) U/L ALT 23 (4-34) U/L Alkaline Phosphatase 60 (38-126) U/L Troponin I <0.012 (0.000-0.034) ng/mL Total Protein 6.4 (6.3-8.2) g/dL Albumin 3.9 (3.5-5.0) g/dL Disposition Is patient prescribed a controlled substance at d/c from ED?: No Time of Disposition: 15:43 <Adam Gutierrez - Last Filed: 12/01/24 16:14> Is patient prescribed a controlled substance at d/c from ED?: No <Adam Yo - Last Filed: 12/01/24 17:28> Clinical Impression: Dizziness, Bradycardia, Renal insufficiency Disposition: HOME SELF-CARE Condition: Good Instructions (If sedation given, give patient instructions): Bradycardia (ED), Dizziness (ED) Prescriptions: Meclizine [Antivert] 25 mg PO TID #20 tab Referrals: Linda Watkins MD [Primary Care Provider] - 1-2 days
[2024-12-01 14:05] VITALS: RESP 18
[2024-12-01 14:09] VITALS: PULSE 56
[2024-12-01] MEDS: SODIUM CHLORIDE 0.9% 500 ML 500 ML IV STA (14:10)
[2024-12-01 14:12] LABS: Basophils % (A) 0 %; Eosinophils # (A) 0.2 k/uL (0-0.7); Eosinophils % (A) 2 %; HCT 39.4 % (34.0-46.0); Lymphocytes # (A) 1.6 k/uL (1.0-4.8); Lymphocytes % (A) 12 %; MCH 31.7 pg (25.0-35.0); MCV 96.2 fL (80.0-100.0); Mean Platelet Volume 7.8; Monocytes # (A) 0.6 k/uL (0-1.0); Monocytes % (A) 4 %; Neutrophils # (A) 10.5 k/uL (1.3-7.7); Neutrophils % (A) 81 %; Platelet Count 226 k/uL (150-450); RDW 14.3 % (11.5-15.5); WBC 12.9 k/uL (3.8-10.6)
[2024-12-01 14:22] LABS: ALT 23 U/L (4-34); AST 28 U/L (14-36); African American GFR (CKD) 36 (>60 ml/min/1.73 sqM); Albumin 3.9 g/dL (3.5-5.0); Alkaline Phosphatase 60 U/L (38-126); Anion Gap 12 mmol/L; Blood Urea Nitrogen 48 mg/dL (7-17); Calcium 9.8 mg/dL (8.4-10.2); Carbon Dioxide 23 mmol/L (22-30); Chloride 102 mmol/L (98-107); Glucose 94 mg/dL (74-99); Magnesium 2.3 mg/dL (1.6-2.3); Non-African American GFR(CKD) 32 (>60 ml/min/1.73 sqM); Potassium 4.9 mmol/L (3.5-5.1); Sodium 137 mmol/L (137-145); Total Bilirubin 0.6 mg/dL (0.2-1.3); Total Protein 6.4 g/dL (6.3-8.2)
--- NOTE | 2024-12-01 14:30 | XR ---
EXAMINATION TYPE: XR chest 2V DATE OF EXAM: 12/01/2024 2:20 PM COMPARISON: Prior chest radiograph 10/04/2017. CLINICAL INDICATION: Female, 79 years old with history of Chest Pain; [facility] TECHNIQUE: XR chest 2V Frontal and lateral views of the chest. FINDINGS: Lungs/Pleura: There is no evidence of pleural effusion, focal consolidation, or pneumothorax. Mild a symmetric elevation and eventration of the right hemidiaphragm. Pulmonary vascularity: Unremarkable. Heart/mediastinum: Cardiomediastinal silhouette is unremarkable. Musculoskeletal: No acute osseous pathology. Other findings: None IMPRESSION: No acute cardiopulmonary disease/process. [facility], , 12/01/2024 2:27 PM
[2024-12-01] MEDS: SODIUM CHLORIDE 0.9% 1,000 ML IV ONE (15:16)
[2024-12-01] MEDS: MECLIZINE 12.5 MG TAB PO STA (15:51)
--- NOTE | 2024-12-01 16:49 | CT ---
EXAMINATION TYPE: CT brain wo con DATE OF EXAM: 12/01/2024 4:35 PM COMPARISON: None. CLINICAL INDICATION: Female, 79 years old with history of Dizziness, Bradycardia, dizziness TECHNIQUE: Brain: Axial CT images of the brain were obtained with coronal and sagittal reformats created and rev iewed. Contrast used: None. Oral contrast used: None. CT DLP: 1728.6 mGycm, Automated exposure control for dose reduction was used. FINDINGS: Brain: Extra-axial spaces: No abnormal extra-axial fluid collections. Ventricular system: Within normal limits Cerebral parenchyma: No acute intraparenchymal hemorrhage or mass effect. Extensive calcifications a long the falx, most notably posteriorly. Scattered hypoattenuating areas are seen within the white ma tter. Cerebellum: Unremarkable. Mass effect: No evidence of midline shift. Intracranial vasculature: unremarkable Soft tissues: Normal. Calvarium/osseous structures: No depressed skull fracture. Paranasal sinuses and mastoid air cells: Mild scattered paranasal sinus disease. Visualized orbits: Bilateral aphakia IMPRESSION: No acute intracranial process. [facility], , 12/01/2024 4:47 PM
[2024-12-01] MEDS: SODIUM CHLORIDE 0.9% 500 ML 500 ML IV ONE (17:05)
--- NOTE | 2024-12-01 17:14 | CT ---
EXAMINATION TYPE: CT angio head neck DATE OF EXAM: 12/01/2024 4:51 PM COMPARISON: None. CLINICAL INDICATION: Female, 79 years old with history of Dizziness; PHH, Bradycardia, dizziness. No Priors. TECHNIQUE: Axially acquired helical CT angiogram of the head and neck was obtained with contrast. Axi al images are supplemented with 3D reconstructions and MIP images which were post-processed at an in dependent workstation. NASCET criteria used. Contrast used:65 mL of Isovue 370 without and with IV Contrast, Oral contrast used: None. CT DLP: 1728.6 mGycm, Automated exposure control for dose reduction was used. FINDINGS: CTA HEAD: No evidence of acute intracranial hemorrhage, mass effect, or midline shift. The ventricles, sulci, a nd cisterns are unremarkable. Vertebral arteries: The vertebral arteries are patent. Vertebral artery dominance: Codominant Basilar artery: The basilar artery is intact. The basilar artery bifurcation is normal. Internal Carotid arteries: The cervical, petrous, cavernous and supraclinoid segments are normal. ESTEBAN: Patent with no evidence of aneurysm. ACOM: Present without evidence of aneurysm. MCA: Patent with no evidence of aneurysm. GRAPHICS PRODUCTION SPECIALIST: Patent with no evidence of aneurysm. PCOM: Hypoplastic bilaterally. Dural sinuses: Patent. CTA NECK: Right Carotid System: Retropharyngeal course. The common carotid and external carotid arteries are patent. There is less th an 25% stenosis at the carotid bifurcation secondary to calcified/noncalcified plaque. The rest of th e internal carotid artery is patent. Left Carotid System: Retropharyngeal course. The common carotid artery and external carotid artery are patent. The carotid bifurcation demonstrates no evidence of hemodynamically significant stenosis. The remaining portions of the internal carotid artery demonstrate normal size without significant narrowing. Vertebral arteries are patent without evidence hemodynamically significant stenosis. There is a three-vessel aortic arch. The origins of the great vessels are patent. No evidence of hemo dynamically significant stenosis. Upper thorax: IMPRESSION: 1. No evidence of dissection of the cervical internal carotid arteries or vertebral arteries. 2. No any evidence of significant stenosis at the carotid bifurcations. 3. No evidence of intracranial high-grade stenosis or intracranial aneurysm. [facility], , 12/01/2024 5:12 PM
[2024-12-01 18:01] VITALS: BP 170/88
== END 2024-12-01 18:03 | disposition home or self-care (01) ==
LOC: EC 13:20
DX: R42 Dizziness and giddiness (principal); N28.9 Disorder of kidney and ureter, unspecified; R00.1 Bradycardia, unspecified; Z87.891 Personal history of nicotine dependence; Z88.0 Allergy status to penicillin; Z88.1 Allergy status to other antibiotic agents; Z88.5 Allergy status to narcotic agent
CPT/HCPCS: 36415; 93005; 80053; 83735; 84484; 85025; 71046; 70496; 70450; 70498; 99285; 96360; Q9967